=== PATIENT | female | born 2000 | race Caucasian/White ===

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

== ENCOUNTER 2021-02-03 12:11 | Outpatient (CLI) | payer BC, OTHER, SELFPAY | END 2021-02-03 12:12 | disposition home or self-care (01) | LOC: CHSLAB 12:14 | PROVIDERS: PCP Internal Medicine; Visit Provider Internal Medicine | DX: J02.9 Acute pharyngitis, unspecified (principal) | CPT/HCPCS: 87081; 87880 ==

== ENCOUNTER 2021-05-15 15:10 | Outpatient (CLI) | payer BC, OTHER, SELFPAY ==
[2021-05-15 16:23] LABS: Influenza A QL RT-PCR Negative (Negative); Influenza B QL RT-PCR Negative (Negative); SARS-CoV-2 RNA PCR Positive (Negative)
== END 2021-05-15 15:11 | disposition home or self-care (01) ==
LOC: CHSLAB 15:12
PROVIDERS: PCP Internal Medicine; Visit Provider Internal Medicine
DX: U07.1 COVID-19 (principal); J06.9 Acute upper respiratory infection, unspecified
CPT/HCPCS: 87081; 87502; 87880; C9803; U0003; U0005

== ENCOUNTER 2021-05-17 19:56 | Emergency (ER) | payer BC, OTHER, SELFPAY ==
--- NOTE | ~2021-05-17 | XR_ITS ---
EXAMINATION: XR chest 1V portable EXAM DATE: 05/17/2021 22:28 INDICATION: Midsternal CP,COVID+ 05/14,SOA,HX Asthma TECHNIQUE: Portable AP frontal chest x-ray was obtained. Comparison is made to prior examination from 08/23/2020. FINDINGS: The lungs are clear. There are no pleural effusions. The cardiomediastinal silhouette is within normal limits. There is no pneumothorax suspected. The bones and soft tissues are unremarkab le. IMPRESSION: No acute cardiopulmonary findings. Reviewed, dictated and finalized at location A. LOADER
[2021-05-17 20:00] VITALS: BP 131/88; PULSE 79; RESP 17; TEMP 36.7; O2SAT 100
[2021-05-17] MEDS: KETOROLAC 30 MG/ML VIAL (*BKC) IV PUSH (22:18)
[2021-05-17 22:37] LABS: Basophils Absolute Auto 0.1 K/mm3 (0.0-0.1); Basophils Percent Auto 0.9 % (0.2-1.2); Eosinophils Absolute Auto 0.2 K/mm3 (0-0.3); Eosinophils Percent Auto 1.9 % (0-4.4); Hematocrit 41.7 % (37.0-47.0); Hemoglobin 13.7 g/dL (12.0-15.0); Immature Granulocyte Absolute 0.02 K/mm3 (0.00-0.031); Immature Granulocyte Percent A 0.3 % (0-0.5); Lymphocytes Absolute Auto 2.71 K/mm3 (0.9-3.2); Lymphocytes Percent Auto 35.1 % (18.3-44.2); Mean Corpuscular HGB Conc 32.9 g/dl (32-36); Mean Corpuscular Hemoglobin 27.6 pg (26-34); Mean Corpuscular Volume 84.1 fl (80-100); Mean Platelet Volume 10.6 fl (7.4-10.4); Monocytes Absolute Auto 0.7 K/mm3 (0.1-0.6); Monocytes Percent Auto 9.1 % (2.6-8.5); Neutrophils Absolute Auto 4.1 K/mm3 (1.3-6.7); Neutrophils Percent Auto 52.7 % (45.5-73.1); Platelet Count Result 396 k/mm3 (150-375); Red Blood Count 4.96 M/mm3 (4.2-5.4); Red Cell Distribution Width 12.4 % (11.5-14.5); White Blood Count 7.7 K/mm3 (4.5-10.0)
[2021-05-17 22:56] LABS: Alanine Aminotransferase 13 U/L (4-35); Albumin Level 4.4 g/dL (3.7-5.6); Alkaline Phosphatase 94 U/L (45-116); Anion Gap 8 mmol/L (8-16); Aspartate Amino Transferase 28 U/L (14-36); Bilirubin,Total 0.3 mg/dL (0.2-1.3); Blood Urea Nitrogen 7 mg/dL (8-21); Calcium 8.9 mg/dL (8.9-10.7); Carbon Dioxide 29 mmol/L (22-30); Chloride 100 mmol/L (98-107); Estimated CRCL calculation 161 ml/min; Estimated Glomerular Filt Rate > 60; Glucose 91 mg/dL (65-110); Potassium 4.3 mmol/L (3.4-5.0); Sodium 137 mmol/L (134-143)
--- NOTE | 2021-05-17 23:05 | ED.GENADULT ---
HPI - General Adult General Chief complaint: Upper Respiratory Infection Stated complaint: COVID+ and short of breath 05/15/21 Time Seen by Provider: 05/17/21 21:15 History of Present Illness HPI narrative: Patient is a 20-year-old female who presents ER with chest pain and shortness of breath. Patient diagnosed with COVID-19 on 05/15 but was symptomatic 1 day before. She reports around 7:30 PM she began having central chest discomfort. She cannot describe the character of it but just reports she feels like she is not getting a full breath. Worse with attempting deep breaths. The pain is not constant. She is not dyspneic with exertion. No fevers or chills or sweats. She has had some minor cough. She is unvaccinated. She has history of protein C deficiency. No previous history of blood clot. No recent long distance travel, lower extremity swelling, or surgery. Related Data Home Medications Medication Instructions Recorded Confirmed atenolol 50 mg tablet 50 mg PO DAILY 04/30/21 04/30/21 Allergies Allergy/AdvReac Type Severity Reaction Status Date / Time Penicillins Allergy Unknown FACIAL Verified 05/17/21 20:03 SWELLING Review of Systems Review of Systems: All systems reviewed & are unremarkable except as noted in HPI and below Constitutional: Constitutional: Denies chills, Denies fever(s) and Denies weakness ENT: Reports nasal congestion and Reports sore throat Cardiovascular: Cardiovascular: Reports chest pain, Denies rapid heart rate and Denies radiating jaw, neck or arm pain Respiratory: Respiratory: Reports cough, Reports dyspnea and Denies wheezing Gastrointestinal: Gastrointestinal: Denies abdominal pain, Denies nausea and Denies vomiting Neurologic: Denies syncope, Denies focal weakness and Denies numbness PMFSH Past Medical History Medical History (Updated 05/17/21 @ 23:49 by Johnny Davis MD) History of sinus tachycardia Protein C deficiency Surgical History Surgical History (Updated 05/17/21 @ 23:07 by Johnny Davis MD) No pertinent past surgical history Social History Social History (Updated 05/17/21 @ 23:08 by Johnny Davis MD) Smoking status: Never smoker Exam Narrative: GENERAL: Well-appearing, well-nourished, and in no acute distress. HEAD: Normocephalic, atraumatic. ENT: Mucous membranes moist. CHEST: Clear to auscultation. No respiratory distress. HEART: Regular rate and rhythm. No murmur heard. Normal peripheral pulses. ABDOMEN: Soft, nontender, nondistended. EXTREMITIES: Normal range of motion. No edema. SKIN: Warm, dry, no rash. NEURO: Alert and oriented x3. PSYCH: Normal mood and affect. Course Course Emergency Course: Labs unremarkable. Chest x-ray negative. Improved with Toradol. Discharge home. Vital Signs Vital signs: Vital Signs Temperature 98.0 F 05/17/21 20:00 Pulse Rate 79 05/17/21 20:00 Respiratory Rate 17 05/17/21 20:00 Blood Pressure 131/88 05/17/21 20:00 Pulse Oximetry 100 05/17/21 20:00 Temperature 98.0 F 05/17/21 20:00 Pulse Rate 79 05/17/21 20:00 Respiratory Rate 17 05/17/21 20:00 Blood Pressure 131/88 05/17/21 20:00 Pulse Oximetry 100 05/17/21 20:00 Medical Decision Making Vital Signs Vital Signs: Vital Signs Temperature 98.0 F 05/17/21 20:00 Pulse Rate 79 05/17/21 20:00 Respiratory Rate 17 05/17/21 20:00 Blood Pressure 131/88 05/17/21 20:00 Pulse Oximetry 100 05/17/21 20:00 Temperature 98.0 F 05/17/21 20:00 Pulse Rate 79 05/17/21 20:00 Respiratory Rate 17 05/17/21 20:00 Blood Pressure 131/88 05/17/21 20:00 Pulse Oximetry 100 05/17/21 20:00 Lab Data Result diagrams: 05/17/21 22:18 05/17/21 22:18 Labs: Lab Results 05/17/21 05/17/21 05/17/21 Range/Units 22:18 22:18 22:18 WBC 7.7 (4.5-10.0) K/mm3 RBC 4.96 (4.2-5.4) M/mm3 Hgb 13.7 (12.0-15.0) g/dL Hct 41.7 (37.0-47.0) %
[2021-05-17 23:09] LABS: D Dimer < 0.22 ug/mL (<0.48)
== END 2021-05-18 04:12 | disposition home or self-care (01) ==
PROVIDERS: Emergency Provider Emergency Medicine; PCP Internal Medicine
DX: R09.1 Pleurisy (principal); U07.1 COVID-19
CPT/HCPCS: 36415; 71045; 80053; 85025; 85380; 96374; 99284; J1885

== ENCOUNTER 2021-06-10 13:03 | Outpatient (CLI) | payer BC, OTHER, SELFPAY ==
--- NOTE | 2021-06-10 13:15 | ECG_ITS ---
Measurements Intervals [place] Rate: 70 P: 38 NM: 183 QRS: 22 QRSD: 93 T: 30 QT: 375 QTc: 407 Interpretive Statements SINUS RHYTHM WITH SINUS ARRHYTHMIA LOW QRS VOLTAGE IN PRECORDIAL LEADS BORDERLINE R WAVE PROGRESSION, ANTERIOR LEADS MINIMAL Q WAVES- INFERIOR LEADS BORDERLINE ECG Electronically Signed On 06-10-2021 13:21:45 [employer] [place] by Hero Jean D.O.
== END 2021-06-10 13:04 | disposition home or self-care (01) ==
LOC: ANHSURGERY 13:06
PROVIDERS: PCP Internal Medicine; Visit Provider Otolaryngology
DX: R00.0 Tachycardia, unspecified (principal); R94.31 Abnormal electrocardiogram [ECG] [EKG]
CPT/HCPCS: 93005

== ENCOUNTER 2021-06-13 00:25 | Day surgery (SDC) | payer BC, OTHER, SELFPAY ==
[2021-06-06 15:02] VITALS: BMI 40.7
--- NOTE | 2021-06-06 15:14 | PC.NURSE ---
Report to the Outpatient Waiting Room, entrance under the green pavilion located off [facility], at time 8:30 on date 06/13/21. OR Time: 10:30. - You will be asked a series of questions to screen for COVID 19 for your protection. - A mask is required within the hospital. - No visitors are allowed at this time. Patient visitors will be guided where to wait when not with patient. Preoperative COVID Testing Requirements: COVID + 05/15/21 No COVID Test needed if: (proof is required; if not received patient will have Rapid Test prior to entry) - Patient has received COVID Vaccine at least 14 days prior to procedure date or - Patient has positive COVID test result within last 90 days of surgery date. COVID Test needed if above criteria is not met Patients may have clear liquids (water, carbonated beverages, clear teas, apple juice) until 3 hours prior to surgery (7:30) with a maximum of 20 ounces. - No food from midnight until time of surgery Take the following medications with a SIP of water the morning of surgery: ATENOLOL Medications to discontinue per physician: VITAMINS/SUPPLEMENTS Date to take last dose: 06/09/21 Please no make-up, nail korean, hairspray, perfume, deodorant, or body powder the day of surgery. No jewelry (including any body piercings) or valuables the day of surgery, leave them at home. Please take a shower or bath the night before, or the morning of, surgery with an antibacterial soap. Wear comfortable, loose fitting clothing. - Jewelry must be removed prior to entering the operating room. Rings and piercings that are not removed may be cut off. - The hospital will not accept responsibility for valuables. - Please leave all valuables, including medications, at home the day of surgery. If you are going home after surgery, a licensed waste collection driver must drive you home. - NO public transportation without another adult. - We recommend that an adult stay with you for 24 hours following discharge. - We also recommend that you do not drive, make important decision, drink alcoholic beverages, or take any drugs that were not prescribed by your health care provider for at least 24 hours after your discharge time. Follow any additional instructions given to you from your surgeon. Telephone instructions given to PEARL MUNSON and asked if any additional questions and then verbalized understanding. Patient advised to call surgeon office or pre surgery nurse liaison [phone] if any additional questions.
--- NOTE | 2021-06-12 08:02 | PM.IMHP ---
H&P: HPI History of Present Illness Date/Time: 06/12/21 08:02 Chief Complaint: tonsillar asymmetry chronic tonsillitis recurrent tonsillitis dysphagia tonsillar hypertrophy Narrative: patient presents for planned surgical procedure no change in history no change in symptoms. Patient does have protein C deficiency Review of Systems Constitutional: Constitutional: Denies fatigue, Denies fever(s) and Denies lethargy Eyes: Eyes: Denies blurry vision and Denies change in vision ENT: Reports as per HPI Cardiovascular: Cardiovascular: Denies chest pain Respiratory: Respiratory: Denies cough Endocrine: Endocrine: Denies fatigue Hematologic/Lymphatic: Hematologic/Lymphatic: Denies easy bleeding, Denies easy bruising and Denies lymphadenopathy Allergic/Immunologic: Allergic/Immunologic: Denies seasonal rhinorrhea [facility] Past Medical History Medical History (Updated 05/19/21 @ 00:00 by Cheo Vallecillo) History of sinus tachycardia Protein C deficiency Surgical History Surgical History (Updated 05/17/21 @ 23:07 by Johnny Davis MD) No pertinent past surgical history Social History Social History (Updated 05/17/21 @ 23:08 by Johnny Davis MD) Smoking status: Never smoker Alcohol intake: never Substance use: never Substance use type: does not use Spiritual care concerns: No Meds Home Medications and Allergies Home Medications Medication Instructions Recorded Confirmed Type atenolol 50 mg tablet 50 mg PO DAILY 04/30/21 06/06/21 History multivitamin 1 tablet PO DAILY 06/06/21 06/06/21 History Allergies Allergy/AdvReac Type Severity Reaction Status Date / Time Penicillins Allergy Unknown FACIAL Verified 06/06/21 15:00 SWELLING Exam Const: General: cooperative, healthy appearing, comfortable, well developed and alert HENMT: Head: normal to inspection, normocephalic and atraumatic Ears: hearing grossly normal bilaterally, external ears normal, TM's normal bilaterally and EAC's normal General nose exam: Normal external nose present, Normal nares present, No nasal polyps present, Normal nasal mucous membranes and turbinates present and Normal septum present Face and sinus: normal facial exam Mouth: Yes Normal oral and palatal mucosa present, Yes lip normal, Yes tongue normal, Yes oropharynx normal and Yes moist mucous membranes Teeth and gingiva: dentition normal and gingiva normal Throat: posterior oropharynx normal, tonisls abnormal ( Large asymmetric right greater than left) and uvula midline Eyes: General: appearance normal, both eyes and all related structures Periorbital: periorbital findings normal Eyelids: eyelids normal Conjunctivae: conjunctivae normal Sclera: sclerae normal Neck: Neck: normal visual inspection, full ROM and no lymphadenopathy Thyroid: thyroid normal Lymphatic: no lymphadenopathy noted Resp: Effort & Inspection: normal respiratory effort and able to speak in complete sentences Cardio: Jugular venous distension: no JVD Neuro: Cranial nerves: Yes CN's II-XII intact bilaterally Assessment and Plan Assessment and plan (1) Dysphagia: Code(s): R13.10 - Dysphagia, unspecified Status: Acute Assessment and Plan: plan is for the operating room tonsillectomy. Risks were discussed including bleeding infection pain postoperative bleeding 5% need for further procedures tongue numbness tooth numbness numbness and pain of any structure above the clavicles any complications that which may be caused by Anesthesia and induction and endotracheal tube to assess [place]. Trismus coughing ear pain difficulty swallowing. Need for postoperative pain medication narcotics. Patient voiced understanding of these risks and agreed. (2) Chronic tonsillitis: Code(s): J35.01 - Chronic tonsillitis Status: Acute (3) Recurrent tonsillitis: Code(s): J03.91 - Acute recurrent tonsillitis, unspecified Status: Acute (4) To
[2021-06-13] VITALS (9 sets, daily range): BP systolic 97–125; BP diastolic 52–72; PULSE 49–94; RESP 10–21; TEMP 36.2–36.6; O2SAT 96–100
--- NOTE | 2021-06-13 07:12 | WPDHPUPDATE1 ---
History and Physical Update Update Date/Time: 06/13/21 07:12 History and Physical has been reviewed, including an updated exam of the patient. There are NO changes in the patient's condition. Risks, benefits, and alternatives have been discussed and questions answered. Patient agrees to proceed with procedure.
--- NOTE | 2021-06-13 07:13 | WPDHPUPDATE1 ---
History and Physical Update Update Date/Time: 06/13/21 07:13 History and Physical has been reviewed, including an updated exam of the patient. There are NO changes in the patient's condition. Risks, benefits, and alternatives have been discussed and questions answered. Patient agrees to proceed with procedure.
[2021-06-13] MEDS: LACTATED RINGERS 1,000 ML 30 ML IV CONT ×2 (08:50→11:02)
[2021-06-13] MEDS: ACETAMINOPHEN 500 MG TABLET 1000 MG PO (08:57)
--- NOTE | 2021-06-13 08:57 | P.PNAN_ITS ---
Anes - Initial Pre Proc Eval Procedure: Operation Date: 06/13/21 10:30 Proposed Procedures p Tonsillectomy - Leo Starr MD Date/Time: 06/13/21 08:57 Surgeon: Leo Starr MD Pre Op Diagnosis: chronic tonsilitis Patient Data Age: 20 Gender: F Height: 1.65 m Weight: 111.5 kg Last Vital Signs Temp 36.6 C 06/13/21 08:42 Pulse 82 06/13/21 08:42 Resp 16 06/13/21 08:42 BP 125/67 06/13/21 08:42 Pulse Ox 99 06/13/21 08:42 Allergies Allergy/AdvReac Type Severity Reaction Status Date / Time Penicillins Allergy Severe FACIAL Verified 06/13/21 08:41 SWELLING Home Medications Medication Instructions Recorded Confirmed Type atenolol 50 mg tablet 50 mg PO DAILY 04/30/21 06/13/21 History multivitamin 1 tablet PO DAILY 06/06/21 06/13/21 History Patient hx anesthesia problems: none Family hx anesthesia problems: none Results Review: All pre-operative results and documents have been reviewed as part of the pre-operative evaluation. [facility] Past Medical History Medical History (Updated 06/13/21 @ 08:57 by Roberth Quintanilla MD) History of sinus tachycardia Morbid obesity Protein C deficiency Surgical History Surgical History No pertinent past surgical history Social History Social History Smoking status: Never smoker Alcohol intake: never Substance use: never Substance use type: does not use Living arrangements: with family Spiritual care concerns: No Anes - Eval Final PreProcedure Day of Procedure 06/13/21 08:57 Patient weight: morbidly obese Heart: regular rate and rhythm Lungs: clear to auscultation Airway: Mallampati scale class II Neurological: alert and oriented Last oral intake: >/= 8 hours ASA classification: III Emergent: no Anesthetic plan: proceed Anesthesia type and monitoring: general ETT and standard monitoring Results Review: All pre-operative results and documents have been reviewed as part of the pre-operative evaluation. Informed Consent: The patient's anesthetic plan and its attendant risks and benefits were discussed with the patient/family/POA. Questions were solicited and answers provided to the satisfaction of the patient/family/POA.
[2021-06-13] MEDS: fentaNYL CITRATE INJ (*CRX) 100 MCG/2 ML VIAL 25 MCG IV PUSH ×4 (10:38→10:48)
--- NOTE | 2021-06-13 10:46 | W.PM.PROC2 ---
Procedure Note - Detailed Date of Procedure 06/13/21 Pre-op Diagnosis chronic tonsilitis, recurrent tonsillitis, tonsillar hypertrophy Post-op Diagnosis same Procedure Performed Tonsillectomy Surgeon Leo Starr MD Anesthesia general Indications See above Findings arge 3 to 4+ tonsils right greater than left sent separately. Description of Procedure Patient identified consent verified. Patient brought operating room. Time-out performed. General anesthesia induced. Patient prepped and draped bed rotated. Second time-out performed. McIvor mouth gag inserted to reveal tonsils which were 3 to 4+ right greater than left. Dissected in the extracapsular plane using Bovie electrocautery at a setting of 10. Hemostasis achieved using intermittent application of suction Bovie electrocautery at a setting of 12 in 15. The McIvor mouth gag was then lowered allowed to sit for 30 seconds and reopened to reveal excellent hemostasis. There were no complications. Total blood loss approximately 5 cc. Care the patient turned over to Anesthesiology. McIvor mouth gag was removed. This was a bilateral procedure. There were no complications. Estimated Blood Loss 5 Drains No Packing No Pathology yes Complications No immediate complications Condition stable Disposition PACU
[2021-06-13] MEDS: ONDANSETRON INJ 4 MG/2 ML VIAL IV PUSH (11:06)
[2021-06-13] MEDS: diphenhydrAMINE HCl INJ 50 MG/ML VIAL 25 MG IV PUSH (12:01)
[2021-06-13] MEDS: SCOPOLAMINE 1.5 MG PATCH TRANSDERM (12:14)
[2021-06-13] MEDS: oxyCODONE HCL (*CRX) 5 MG TAB IR PO (12:34)
== END 2021-06-13 13:10 | disposition home or self-care (01) ==
PROVIDERS: PCP Internal Medicine; Visit Provider Otolaryngology
PROC: (CPT 42826; principal; 2021-06-13 10:30)
DX: J35.01 Chronic tonsillitis (principal); R13.10 Dysphagia, unspecified; J03.91 Acute recurrent tonsillitis, unspecified; J35.8 Other chronic diseases of tonsils and adenoids; D68.59 Other primary thrombophilia
CPT/HCPCS: 42826; 88304; A9270; J0330; J1100; J1200; J2250; J2405; J2704; J3010; J7120

== ENCOUNTER 2021-08-21 15:53 | Outpatient (CLI) | payer BC, OTHER, SELFPAY ==
[2021-08-21 17:29] LABS: Influenza A QL RT-PCR Positive (Negative); Influenza B QL RT-PCR Negative (Negative); SARS-CoV-2 RNA PCR Negative (Negative)
== END 2021-08-21 15:54 | disposition home or self-care (01) ==
LOC: CHSLAB 15:55
PROVIDERS: PCP Family Medicine; Visit Provider Nurse Practitioner Family
DX: J06.9 Acute upper respiratory infection, unspecified (principal); R50.9 Fever, unspecified; Z20.822 Contact with and (suspected) exposure to COVID-19
CPT/HCPCS: 87502; C9803; U0003; U0005

== ENCOUNTER 2021-08-22 15:32 | Emergency (ER) | payer BC, OTHER, SELFPAY ==
--- NOTE | ~2021-08-22 | CT_ITS ---
EXAMINATION: CTA chest PE protocol DATE: 08/22/2021 17:39 INDICATION: Shortness of breath, tachycardia. Positive d-dimer. TECHNIQUE: Computed tomography angiography (CTA) of the chest was performed with 100 mL Omnipaque-350 intravenous contrast timed to evaluate the pulmonary arteries. Coronal maximum intensity projection 3D-reconstructions were created by the technologist. Automated exposure control and iterative reconst ruction technique were employed. Exam dose: 1018.79 mGy-cm total exam DLP. COMPARISON: 08/22/2021 portable AP chest FINDINGS: There is diagnostic contrast enhancement of the pulmonary arteries and no evidence of pulmo nary embolism. Normal heart size. No pericardial or pleural effusion. No thoracic aortic aneurysm or dissection. There is some residual thymic tissue in the anterior mediastinum. There there some nonspecific mild p revascular mediastinal lymph nodes. And minimal bilateral hilar lymph node prominence. There is nonspecific mild mesenteric lymph node prominence as well. 8 mm right upper lobe nodule and 5 mm left lower lobe pulmonary nodule. No pulmonary infiltrate or consolidation or pneumothorax. Spleen measures within upper limits of normal, at 12 cm approximate maximal vertical dimension. Included skeletal structures are unremarkable. IMPRESSION: No evidence of pulmonary embolism 8 mm right upper lobe nodule and 5 mm left lower lobe nodule Nonspecific mild mediastinal and bilateral hilar and mesenteric lymph node prominence Reviewed, dictated and finalized at Location A. Reviewed, dictated and finalized at location A. IMPRESSION: No evidence of pulmonary embolism 8 mm right upper lobe nodule and 5 mm left lower lobe nodule Nonspecific mild mediastinal and bilateral hilar and mesenteric lymph node prom inence
--- NOTE | ~2021-08-22 | XR_ITS ---
EXAMINATION: XR chest 1V portable EXAM DATE: 08/22/2021 16:11 INDICATION: Generalized chest pain, cough today. TECHNIQUE: Portable AP frontal chest x-ray was obtained. Comparison is made to prior examination from 05/17/2021. FINDINGS: The lungs are clear. There are no pleural effusions. The cardiomediastinal silhouette is within normal limits. There is no pneumothorax suspected. The bones and soft tissues are unremarkab le. IMPRESSION: No acute cardiopulmonary findings. Reviewed, dictated and finalized at location A.
[2021-08-22 15:40] VITALS: BP 141/77; PULSE 109; RESP 18; TEMP 37.5; O2SAT 98
--- NOTE | 2021-08-22 15:53 | ECG_ITS ---
Measurements Intervals [place] Rate: 106 P: 24 AL: 162 QRS: -12 QRSD: 85 T: 19 QT: 316 QTc: 421 Interpretive Statements SINUS TACHYCARDIA LOW QRS VOLTAGE IN PRECORDIAL LEADS [QRS DEFLECTION < 1.0 mV IN CHEST LEADS] POOR R WAEPROGRESSION; CAN NOT RULE OUT OLD ANTERIOR MYOCARDIAL INFARCTION ABNORMAL RHYTHM ECG COMPARED TO ECG 06/10/2021 13:23:43 SINUS TACHYCARDIA NOW PRESENT Electronically Signed On 08-23-2021 6:50:11 CDT by Bridgett Núñez M.D.
--- NOTE | 2021-08-22 15:57 | ED.GENADULT ---
HPI - General Adult General Chief complaint: Upper Respiratory Infection Stated complaint: vomiting, cough,trouble catching breath Source: patient Mode of arrival: ambulatory Limitations: no limitations History of Present Illness HPI narrative: Karla is a 20F with a PMH of tachycardia and protein C deficiency that presented to the ED with with flu symptoms. She started to have a cough a couple days ago that led to fevers up to 102, cough, congestion, SOB, chest pain, body aches, nausea and 10 episodes of non-bloody vomiting. Related Data Home Medications Medication Instructions Recorded Confirmed atenolol 50 mg tablet 50 mg PO DAILY 04/30/21 08/22/21 multivitamin 1 tablet PO DAILY 06/06/21 08/22/21 oseltamivir 75 mg PO DAILY 08/22/21 08/22/21 Allergies Allergy/AdvReac Type Severity Reaction Status Date / Time Penicillins Allergy Severe FACIAL Verified 08/22/21 15:49 SWELLING Review of Systems Constitutional: Constitutional: Reports chills, Reports fatigue and Reports fever(s) Eyes: Eyes: Reports no additional eye complaints ENT: Reports as per HPI Cardiovascular: Cardiovascular: Reports chest pain, Reports rapid heart rate and Denies radiating jaw, neck or arm pain Respiratory: Respiratory: Reports as per HPI Gastrointestinal: Gastrointestinal: Reports as per HPI Genitourinary: Genitourinary: Reports no additional female genitourinary complaints Musculoskeletal: Musculoskeletal: Reports no additional musculoskeletal complaints Integumentary/Breasts: Skin/Breast: Reports system reviewed and no additional complaints, except as docu Neurologic: Reports system reviewed and no additional complaints, except as documented Psychiatric: Psychiatric: Reports no additional psychiatric complaints Endocrine: Endocrine: Reports no additional endocrine complaints Hematologic/Lymphatic: Hematologic/Lymphatic: Reports no additional hematologic/lymphatic complaints Allergic/Immunologic: Allergic/Immunologic: Reports no additional allergic/immunologic complaints [facility] Past Medical History Medical History History of sinus tachycardia Morbid obesity Protein C deficiency Surgical History Surgical History No pertinent past surgical history Social History Social History Smoking status: Never smoker Alcohol intake: never Substance use: never Substance use type: does not use Spiritual care concerns: No Exam Const: General: no acute distress and alert; No confusion Orientation/consciousness: patient oriented x3 Limitations: No altered mental status HENMT: Head: normal to inspection Other: normocephalic, atraumatic Eyes: Conjunctivae: conjunctivae normal Pupils: Equal, round and reactive pupils present Neck: Neck: normal visual inspection Chest: Chest palpation & inspection: normal inspection of the chest Resp: Effort & Inspection: normal respiratory effort, not labored and tachypneic Auscultation: clear to auscultation bilaterally Cardio: Rate: tachycardic Rhythm: regular rhythm GI: Inspection: non-distended GI Palp: Yes Soft to palpation, No Tenderness to palpation present (GI) and No Guarding due to palpation present (GI) : General: Yes no CVA tenderness Skin: General skin exam: normal color Rashes: no rashes Neuro: General: patient oriented x3 Extrem: General: normal to inspection Psych: Mental Status: mental status grossly normal Course Course Emergency Course: Ordered EKG, CXR, labs, fluids, toradol and zofran EKG showed sinus tachycardia with a rate of 106, possible LAD but no ST elevation/depression or ectopy Labs largely unremarkable. EXAMINATION: CTA chest PE protocol DATE: 08/22/2021 17:39 INDICATION: Shortness of breath, tachycardia. Positive d-dimer. TECHNIQUE: Computed tomography a
[2021-08-22] MEDS: SODIUM CHLORIDE 0.9% IV 1,000 ML 999 ML IV CONT (16:09)
[2021-08-22] MEDS: ONDANSETRON INJ 4 MG/2 ML VIAL IV PUSH (16:11)
[2021-08-22] MEDS: KETOROLAC 30 MG/ML VIAL (*BKC) IM (16:11)
[2021-08-22 16:12] LABS: Basophils Absolute Auto 0.04 K/mm3 (0.00-0.10); Basophils Percent Auto 0.8 % (0.0-1.0); Eosinophils Absolute Auto 0.02 K/mm3 (0.02-0.50); Eosinophils Percent Auto 0.4 % (1.0-6.0); Hematocrit 39.9 % (35.0-49.0); Hemoglobin 12.7 g/dL (12.0-15.0); Immature Granulocyte Absolute 0.03 K/mm3 (0.00-0.00); Immature Granulocyte Percent A 0.6 % (0.0-0.0); Lymphocytes Absolute Auto 0.55 K/mm3 (1.10-4.50); Lymphocytes Percent Auto 10.6 % (18.0-42.0); Mean Corpuscular HGB Conc 31.8 g/dL (32.0-36.0); Mean Corpuscular Hemoglobin 27.1 pg (27.0-31.0); Mean Corpuscular Volume 85.3 fL (78.0-102.0); Mean Platelet Volume 10.4 fl (9.2-11.8); Monocytes Absolute Auto 0.54 K/mm3 (0.10-0.90); Monocytes Percent Auto 10.4 % (2.0-11.0); Neutrophils Percent Auto 77.2 % (50.0-70.0); Platelet Count Result 235 K/mm3 (150-420); Red Blood Count 4.68 M/mm3 (4.20-5.40); Red Cell Distribution Width 12.4 % (11.6-14.4); White Blood Count 5.2 K/mm3 (4.8-10.8)
[2021-08-22 16:14] LABS: Add Urine Microscopic? NO; Appearance Urine Clear (Clear); Bilirubin Urine Negative (Negative); Blood Urine Negative (Negative); Color Urine Light Yellow (Yellow); Glucose Urine UA Negative (Negative); Ketones Urine Negative (Negative); Leukocyte Esterase Ur Negative (Negative); Nitrate Urine Negative (Negative); Protein Urine Negative (Negative); Specific Grav Ur <= 1.005 (1.010-1.020); Urobilinogen Urine 0.2 mg/dL (0.2-1.0); pH Urine 5.5 (5.0-8.0)
[2021-08-22 16:20] LABS: Pregnancy On Board Control Positive; Urine Pregnancy Test Negative
[2021-08-22 16:27] LABS: D Dimer 0.98 mg/L (0.19-0.50)
[2021-08-22 16:30] LABS: Lactic Acid Reflex 0.8 mmol/L (0.4-2.0)
[2021-08-22 16:33] LABS: Alanine Aminotransferase 18 U/L (14-59); Albumin Level 3.6 g/dL (3.4-5.0); Alkaline Phosphatase 97 U/L (50-130); Anion Gap 8 mmol/L (8-16); Aspartate Amino Transferase 14 U/L (15-37); Bilirubin,Total 0.2 mg/dL (0.00-1.00); Blood Urea Nitrogen 4 mg/dL (7-18); Calcium 8.5 mg/dL (8.5-10.1); Carbon Dioxide 27 mmol/L (21-32); Chloride 100 mmol/L (98-108); Estimated CRCL calculation 137 ml/min; Estimated Glomerular Filt Rate > 60; Glucose 92 mg/dL (70-99); NT Pro B Type Natriuretic Pept 142 pg/mL (0-125); Osmolality Calculated 276 mOsm/kg (285-295); Potassium 3.9 mmol/L (3.5-5.1); Sodium 135 mmol/L (136-145); Total Protein 7.3 g/dL (6.4-8.2); Troponin I 5.6 ng/L (0.00-60.4)
[2021-08-22 17:02] VITALS: BP 140/78; PULSE 88; RESP 16; TEMP 36.9; O2SAT 100
[2021-08-22 18:04] VITALS: BP 134/72; PULSE 101; RESP 16; TEMP 37.1; O2SAT 96
[2021-08-22 18:21] VITALS: BP 129/70; PULSE 102; RESP 18; O2SAT 99
== END 2021-08-22 18:23 | disposition home or self-care (01) ==
PROVIDERS: Emergency Provider Family Medicine; PCP Internal Medicine
DX: J11.1 Influenza due to unidentified influenza virus with other respiratory manifestations (principal); R06.02 Shortness of breath
CPT/HCPCS: 36415; 71045; 71275; 80053; 81003; 81025; 83605; 83880; 84484; 85025; 85380; 93005; 96361; 96372; 96374; 99284; J1885; J2405; J7030; Q9967

== ENCOUNTER 2021-10-31 10:21 | Outpatient (CLI) | payer BC, OTHER, SELFPAY ==
[2021-10-31 11:16] LABS: Add Urine Microscopic? YES; Appearance Urine Clear (Clear); Basophils Absolute Auto 0.07 K/mm3 (0.00-0.10); Basophils Percent Auto 0.9 % (0.0-1.0); Bilirubin Urine Negative (Negative); Blood Urine Negative (Negative); Color Urine Yellow (Yellow); Eosinophils Absolute Auto 0.16 K/mm3 (0.02-0.50); Glucose Urine UA Negative (Negative); Hematocrit 38.2 % (35.0-49.0); Hemoglobin 12.1 g/dL (12.0-15.0); Immature Granulocyte Absolute 0.04 K/mm3 (0.00-0.00); Immature Granulocyte Percent A 0.5 % (0.0-0.0); Ketones Urine Negative (Negative); Leukocyte Esterase Ur Negative LEU/UL (Negative); Lymphocytes Absolute Auto 2.59 K/mm3 (1.10-4.50); Lymphocytes Percent Auto 31.8 % (18.0-42.0); Mean Corpuscular HGB Conc 31.7 g/dL (32.0-36.0); Mean Corpuscular Hemoglobin 26.2 pg (27.0-31.0); Mean Corpuscular Volume 82.7 fL (78.0-102.0); Mean Platelet Volume 10.7 fl (9.2-11.8); Monocytes Absolute Auto 0.64 K/mm3 (0.10-0.90); Monocytes Percent Auto 7.9 % (2.0-11.0); Neutrophils Absolute Auto 4.6 K/mm3 (1.7-7.2); Neutrophils Percent Auto 56.9 % (50.0-70.0); Nitrate Urine Negative (Negative); Platelet Count Result 338 K/mm3 (150-420); Protein Urine Trace (Negative); Red Blood Count 4.62 M/mm3 (4.20-5.40); Red Cell Distribution Width 12.9 % (11.6-14.4); Specific Grav Ur >= 1.030 (1.010-1.020); Urobilinogen Urine 0.2 mg/dL (0.2-1.0); White Blood Count 8.1 K/mm3 (4.8-10.8)
[2021-10-31 11:30] LABS: Alanine Aminotransferase 15 U/L (14-59); Albumin Level 3.6 g/dL (3.4-5.0); Alkaline Phosphatase 100 U/L (50-130); Anion Gap 6 mmol/L (8-16); Aspartate Amino Transferase < 10 U/L (15-37); Bilirubin,Total 0.3 mg/dL (0.00-1.00); Blood Urea Nitrogen 10 mg/dL (7-18); Calcium 8.3 mg/dL (8.5-10.1); Carbon Dioxide 26 mmol/L (21-32); Chloride 106 mmol/L (98-108); Cholesterol 145 mg/dL (0-200); Estimated Glomerular Filt Rate > 60; Free T4 Free Thyroxine 1.11 ng/dL (0.76-1.46); Glucose 98 mg/dL (70-99); HDL Direct 40 mg/dL (40-60); LDL Cholesterol Calculated 90 mg/dL (<130); Osmolality Calculated 285 mOsm/kg (285-295); Potassium 3.8 mmol/L (3.5-5.1); Sodium 138 mmol/L (136-145); Thyroid Stimulating Hormone 2.76 uIU/mL (0.52-4.13); Triglycerides 73 mg/dL (0-150)
[2021-10-31 11:34] LABS: Amorphous Sediment Urine Moderate; Bacteria Urine None seen /hpf; RBC Urine 0-2 /hpf (0-2); Squamous Epithelial Cell Urine Few /hpf (Few); WBC Urine 0-3 /hpf (0-3)
--- NOTE | 2021-10-31 11:35 | ECG_ITS ---
Measurements Intervals [place] Rate: 52 P: 18 [place]: 169 QRS: 10 QRSD: 93 T: 23 QT: 425 QTc: 398 Interpretive Statements SINUS BRADYCARDIA LOW QRS VOLTAGE IN PRECORDIAL LEADS [QRS DEFLECTION < 1.0 mV IN CHEST LEADS] COMPARED TO ECG 08/22/2021 16:19:46 HEART RATE IS REDUCED THIS TRACING IS LESS SUGGESTIVE OF PREVIOUS INFERIOR MA Electronically Signed On 10-31-2021 14:52:41 CDT by Rickey Baig M.D.
[2021-11-03 14:46] LABS: Homocysteine 8.1 umol/L (<10.4)
[2021-11-03 19:17] LABS: Factor VIII Activity 108 % normal (50-180)
[2021-11-03 21:38] LABS: APC Ratio 4.7 ratio (>=2.1)
[2021-11-04 12:50] LABS: Protein S Antigen, Free 95 % normal (50-147); Protein S Antigen, Total 99 % normal (70-140)
[2021-11-04 22:21] LABS: Antithrombin III Activity 101 % normal (80-135)
[2021-11-05 14:04] LABS: Vitamin D 25 Hydroxy 33 ng/mL (30-100)
[2021-11-05 22:17] LABS: Hexagonal Phase Confirm Negative (Negative); Lupus dRVVT 1:1 Mix Interpreta Not Indicated; Lupus dRVVT Screen 39 sec (<=45); PTT-LA Screen 42 sec (<=40)
== END 2021-10-31 10:22 | disposition home or self-care (01) ==
LOC: CHSCARD 10:23
PROVIDERS: PCP Internal Medicine; Visit Provider Nurse Practitioner Family
DX: Z00.00 Encounter for general adult medical examination without abnormal findings (principal); R00.0 Tachycardia, unspecified; I10 Essential (primary) hypertension; D68.59 Other primary thrombophilia; E55.9 Vitamin D deficiency, unspecified
CPT/HCPCS: 36415; 80053; 80061; 81001; 81240; 82306; 83090; 84439; 84443; 85025; 85240; 85300; 85303; 85305; 85306; 85307; 85598; 85613; 85730; 86146; 86147; 93005

== ENCOUNTER 2021-11-21 12:11 | Outpatient (CLI) | payer BC, OTHER, SELFPAY ==
--- NOTE | 2021-11-21 01:00 | ECHO_ITS ---
Patient Info Name: Karla Hackett Age: 21 years : 2000 Gender: Female Ht: 66 in Wt: 265 lbs BSA: 2.43 m2 HR: 84 bpm BP: 114 / 70 mmHg Heart Rhythm: Sinus Rhythm Technical Quality: Fair Exam Date: 11/21/2021 12:08 PM Exam Location: [facility] Patient Status: Outpatient Admit Date: 11/21/2021 Staff Ordering Physician: Renetta, Akilah Oviedo NP Motor Builder Winder: Zeina Givens RDCS Attending Provider: MatildaAkilah NP Referring Physician: Rneetta NASH; Exam Type: CA echo doppler color flow Study Info Indications - ABNORMAL EKG Complete two-dimensional, color flow and Doppler transthoracic echocardiogram is performed. Summary 1. Complete two-dimensional, color flow and Doppler transthoracic echocardiogram is performed. 2. Left ventricular chamber dimension is normal. 3. Left ventricular systolic function is normal, estimated at 60-65%. 4. The left ventricular diastolic function is normal. 5. E/e' 9 is minimally elevated. 6. There is trace mitral valve regurgitation. 7. There is trace tricuspid valve regurgitation. 8. No pulmonary hypertension, estimated pulmonary arterial systolic pressure is 23 mmHg. Left Ventricle E/e' 9 is minimally elevated. Left ventricular chamber dimension is normal. Left ventricular systolic function is normal, estimated at 60-65%. The left ventricular diastolic function is normal. Right Ventricle Right ventricular systolic function is normal and with normal TAPSE 2.0 cm. Right ventricular chamber dimension is normal. Left Atria Left atrial chamber dimension is normal. Right Atria Right atrial chamber dimension is normal. Aortic Valve The aortic valve is trileaflet. There is no aortic valve stenosis. There is no aortic valve regurgitation. Pulmonic Valve There is no pulmonic regurgitation. Mitral Valve There is no mitral valve stenosis. There is trace mitral valve regurgitation. Tricuspid Valve There is trace tricuspid valve regurgitation. No pulmonary hypertension, estimated pulmonary arterial systolic pressure is 23 mmHg. Pericardium/Pleural There is no pericardial effusion. Inferior Vena Cava Normal inferior vena cava with >50% collapse upon inspiration consistent with normal right atrial pressure, 5 mmHg. Aorta The aortic root size at the sinus of Valsalva is normal. Left Ventricular Outflow Tract Name Value Normal LVOT 2D LVOT Diameter 2.0 cm LVOT Doppler LVOT Peak Velocity 95 cm/s LVOT Peak Gradient 4 mmHg LVOT Mean Gradient 2 mmHg LVOT VTI 16 cm LVOT VTI/AV VTI Ratio 0.7 LVOT Stroke Volume 52 ml Pulmonic Valve Name Value Normal RVOT Doppler RVOT Peak Gradient 2 mmHg
--- NOTE | 2021-11-24 11:59 | WPDHOLTEREM ---
Holter/Event Monitor Holter/Event Monitor Date of procedure: 11/24/21 Holter/Event Procedure: 24 Hr Holter Monitor Indications: Tachycardia Conclusion: 1. 24 hour holter monitor on 11/21/21. 2. Underlying rhythm is sinus rhythm. HR range 43-132 bpm; average HR 76 bpm. 3. There are 6 premature supraventricular complexes and 2 supraventricular couplets. No supraventricular tachycardia. 4. No premature ventricular complexes. No ventricular tachycardia. 5. No sinoatrial or atrioventricular blocks. No significant pauses greater than 2 seconds. 6. Patient reports chest pain which demonstrate sinus tachycardia at 112 bpm.
== END 2021-11-21 12:12 | disposition home or self-care (01) ==
LOC: CHSIMG 12:12
PROVIDERS: PCP Internal Medicine; Visit Provider Nurse Practitioner Family
DX: R94.31 Abnormal electrocardiogram [ECG] [EKG] (principal); R00.0 Tachycardia, unspecified; R00.2 Palpitations
CPT/HCPCS: 93225; 93226; 93306

== ENCOUNTER 2022-02-18 15:31 | Emergency (ER) | payer BC, OTHER, SELFPAY ==
[2022-02-18 15:35] VITALS: BP 151/96; PULSE 103; RESP 19; TEMP 36.5; O2SAT 97
--- NOTE | 2022-02-18 16:09 | ED.HA ---
HPI - Headache General Chief Complaint: Headache Stated Complaint: migraine, L eye pain, nauseous Time Seen by Provider: 02/18/22 16:09 Source: patient Mode of arrival: ambulatory Limitations: no limitations History of Present Illness HPI Narrative: 21-year-old female with a history of migraines presents to the ER 4 day history of -- frontal headache -- nausea without any vomiting. -- No photophobia/phonophobia the patient has had prior headaches in the past. her headaches usually last more than 2-3 days. the patient has taken triptans hands without any benefit. MD elicited complaint: headache Pertinent past history: migraines Onset (ago): day(s) ( Started 4 days ago) Onset description: gradually Location: frontal Quality & Timing: aching Exacerbating factors: none Relieving factors: nothing Context: occurred at rest Associated symptoms: nausea Treatments prior to arrival: none Related Data Home Medications Medication Instructions Recorded Confirmed atenolol 50 mg tablet 50 mg PO DAILY 04/30/21 02/18/22 multivitamin 1 tablet PO DAILY 06/06/21 02/18/22 oseltamivir 75 mg capsule 75 mg PO DAILY 08/22/21 02/18/22 Allergies Allergy/AdvReac Type Severity Reaction Status Date / Time Penicillins Allergy Severe FACIAL Verified 08/22/21 15:49 SWELLING Review of Systems Review of Systems: All systems reviewed & are unremarkable except as noted in HPI and below Constitutional: Constitutional: Reports as per HPI and Reports no additional constitutional complaints Eyes: Eyes: Reports as per HPI and Reports no additional eye complaints ENT: Reports system reviewed and no additional complaints, except as documented Cardiovascular: Cardiovascular: Reports as per HPI and Reports no additional cardiovascular complaints Respiratory: Respiratory: Reports as per HPI and Reports no additional respiratory complaints Gastrointestinal: Gastrointestinal: Reports as per HPI and Reports no additional gastrointestinal complaints Genitourinary: Genitourinary: Reports no additional female genitourinary complaints and Reports as per HPI Musculoskeletal: Musculoskeletal: Reports no additional musculoskeletal complaints and Reports as per HPI Integumentary/Breasts: Skin/Breast: Reports system reviewed and no additional complaints, except as docu and Reports as per HPI Neurologic: Reports system reviewed and no additional complaints, except as documented, Reports as per HPI and Reports headache(s) Psychiatric: Psychiatric: Reports no additional psychiatric complaints and Reports as per HPI Endocrine: Endocrine: Reports no additional endocrine complaints and Reports as per HPI Hematologic/Lymphatic: Hematologic/Lymphatic: Reports no additional hematologic/lymphatic complaints and Reports as per HPI Allergic/Immunologic: Allergic/Immunologic: Reports no additional allergic/immunologic complaints and Reports as per HPI PMFSH Past Medical History Medical History History of sinus tachycardia Morbid obesity Protein C deficiency Surgical History Surgical History No pertinent past surgical history Social History Social History Smoking status: Never smoker Alcohol intake: never Substance use: never Substance use type: does not use Spiritual care concerns: No Exam Const: General: healthy appearing Nutritional Appearance: well nourished Orientation/consciousness: patient oriented x3 Limitations: no limitations HENMT: Head: normal to inspection Ears: external ears normal Face/Nose/Sinus: Normal external nose present Face and sinus: normal facial exam Mouth: Yes Normal oral and palatal mucosa present Throat: posterior oropharynx normal Eyes: Conjunctivae: conjunctivae normal Pupils: Equal, round and reactive pupils present EOM: EOMs intact b
[2022-02-18] MEDS: KETOROLAC 30 MG/ML VIAL (*BKC) IM (16:46)
[2022-02-18] MEDS: PROCHLORPERAZINE EDISYLATE 10 MG/2 ML VIAL IM (16:47)
[2022-02-18 16:51] VITALS: BP 138/78; PULSE 85; RESP 20; O2SAT 98
[2022-02-18 17:48] VITALS: BP 145/76; PULSE 86; RESP 20; TEMP 36.5; O2SAT 97
== END 2022-02-18 17:40 | disposition home or self-care (01) ==
PROVIDERS: Emergency Provider Internal Medicine Critical Care Medicine; PCP Internal Medicine
DX: R51.9 Headache, unspecified (principal); I10 Essential (primary) hypertension
CPT/HCPCS: 96372; 99284; J0780; J1885

== ENCOUNTER 2022-05-12 16:25 | Outpatient (CLI) | payer BC, OTHER, SELFPAY ==
[2022-05-12 16:41] LABS: Hemoglobin 11.1 g/dL (12.0-15.0); Mean Corpuscular HGB Conc 31.7 g/dL (32.0-36.0); Mean Corpuscular Hemoglobin 26.8 pg (27.0-31.0); Mean Corpuscular Volume 84.5 fL (78.0-102.0); Mean Platelet Volume 10.5 fl (9.2-11.8); Platelet Count Result 220 K/mm3 (150-420); Red Blood Count 4.14 M/mm3 (4.20-5.40); Red Cell Distribution Width 13.7 % (11.6-14.4); White Blood Count 6.3 K/mm3 (4.8-10.8)
[2022-05-12 16:43] LABS: Add Urine Microscopic? YES; Appearance Urine Clear (Clear); Bilirubin Urine Negative (Negative); Blood Urine 2+ (Negative); Color Urine Yellow (Yellow); Glucose Urine UA Negative (Negative); Ketones Urine Negative (Negative); Leukocyte Esterase Ur Negative (Negative); Nitrate Urine Negative (Negative); Protein Urine Negative (Negative); Specific Grav Ur >= 1.030 (1.010-1.020)
[2022-05-12 16:53] LABS: Squamous Epithelial Cell Urine Occasional /hpf (Few); WBC Urine 0-3 /hpf (0-3)
[2022-05-12 16:54] LABS: Bacteria Urine Trace /hpf
[2022-05-12 17:13] LABS: Alanine Aminotransferase 46 U/L (14-59); Albumin Level 3.6 g/dL (3.4-5.0); Alkaline Phosphatase 111 U/L (46-116); Amylase 35 U/L (25-115); Anion Gap 10 mmol/L (8-16); Aspartate Amino Transferase 33 U/L (15-37); Bilirubin,Total 0.4 mg/dL (0.00-1.00); Blood Urea Nitrogen 9 mg/dL (7-18); Calcium 8.1 mg/dL (8.5-10.1); Carbon Dioxide 28 mmol/L (21-32); Chloride 104 mmol/L (98-108); Estimated Glomerular Filt Rate > 60; Glucose 99 mg/dL (70-99); Lipase 27 U/L (16-77); Osmolality Calculated 292 mOsm/kg (285-295); Sodium 142 mmol/L (136-145); Total Protein 6.7 g/dL (6.4-8.2)
[2022-05-12 17:17] LABS: Eosinophils Absolute Manual 0.12 K/mm3 (0.02-0.5); Eosinophils Percent Manual 2 % (1-6); Lymphocytes Absolute Manual 2.77 K/mm3 (1.1-4.5); Lymphocytes Percent Manual 44 % (18-44); Monocytes Absolute Manual 0.56 K/mm3 (0.1-0.90); Monocytes Percent Manual 9 % (3-9); Neutrophils Percent Manual 45 % (46-73); Platelet Estimate Adequate (Adequate); Total Cells Counted 100
== END 2022-05-12 16:26 | disposition home or self-care (01) ==
LOC: CHSLAB 16:28
PROVIDERS: PCP Internal Medicine; Visit Provider Internal Medicine
DX: R10.13 Epigastric pain (principal)
CPT/HCPCS: 36415; 80053; 81001; 82150; 83690; 85025

== ENCOUNTER 2022-05-13 13:44 | Outpatient (CLI) | payer BC, OTHER, SELFPAY ==
--- NOTE | ~2022-05-13 | US_ITS ---
EXAMINATION: US right upper quadrant DATE: 05/13/2022 14:18 INDICATION: Episgastric Pain TECHNIQUE: Multiple grayscale and Doppler ultrasound images of the right upper quadrant were obtained . COMPARISON: None available. FINDINGS: Pancreas is obscured. The liver is normal with normal echogenicity and echotexture. No surf reuben nodularity. Normal hepatopetal flow in the main portal vein. The gallbladder is normal with no ab normal wall thickening, pericholecystic fluid or stones. The common bile duct measures 3 mm. There wa s no sonographic Waters sign. IMPRESSION: Pancreas not visualized. Otherwise normal right upper quadrant ultrasound findings. Reviewed, dictated and finalized at location K. SEMAKER HELPER IMPRESSION: Pancreas not visualized. Otherwise normal right upper quadrant ultrasound findi ngs.
[2022-05-13 14:02] LABS: Hematocrit 36.8 % (35.0-49.0); Hemoglobin 11.8 g/dL (12.0-15.0); Immature Reticulocyte Fraction 14.1 % (2.0-16.52); Mean Corpuscular HGB Conc 32.1 g/dL (32.0-36.0); Mean Corpuscular Hemoglobin 26.8 pg (27.0-31.0); Mean Corpuscular Volume 83.6 fL (78.0-102.0); Mean Platelet Volume 10.2 fl (9.2-11.8); Platelet Count Result 221 K/mm3 (150-420); Red Cell Distribution Width 13.4 % (11.6-14.4); Reticulocyte Hemoglobin Conten 28.6 pg (28.0-35.0); Reticulocyte Percent 2.46 % (0.50-1.50); Reticulocytes Absolute 0.11 M/mm3 (0.02-0.1); White Blood Count 6.3 K/mm3 (4.8-10.8)
[2022-05-13 14:22] LABS: Atypical Lymphocytes Present; Band Neutrophils Percent 0 % (0-6); Eosinophils Absolute Manual 0.25 K/mm3 (0.02-0.5); Eosinophils Percent Manual 4 % (1-6); Lymphocytes Absolute Manual 2.89 K/mm3 (1.1-4.5); Lymphocytes Percent Manual 46 % (18-44); Monocytes Absolute Manual 0.75 K/mm3 (0.1-0.90); Monocytes Percent Manual 12 % (3-9); Neutrophils Absolute Manual 2.39 K/mm3 (1.7-7.2); Neutrophils Percent Manual 38 % (46-73); Platelet Estimate Adequate (Adequate); Schistocytes None Seen (NORMAL); Total Cells Counted 100
[2022-05-13 15:00] LABS: Ferritin 87 ng/mL (8-252); Iron 54 ug/dL (50-170); Phosphorus 4.1 mg/dL (3.4-5.5)
[2022-05-15 09:38] LABS: Methylmalonic Acid 121 nmol/L (87-318)
[2022-05-15 19:46] LABS: Ionized Calcium 4.7 mg/dL (4.8-5.6)
[2022-05-15 20:56] LABS: Vitamin D 1,25 (OH)2 Total 55 pg/mL (18-72); Vitamin D2 1,25 (OH)2 <8 pg/mL; Vitamin D3 1,25 (OH)2 55 pg/mL
[2022-05-16 18:16] LABS: Parathyroid Intact 53 pg/mL (14-64)
[2022-05-17 18:08] LABS: Vitamin D 25 Hydroxy 19 ng/mL (30-100)
== END 2022-05-13 13:45 | disposition home or self-care (01) ==
LOC: CHSLAB 13:46
PROVIDERS: PCP Internal Medicine; Visit Provider Internal Medicine
DX: R10.13 Epigastric pain (principal); D64.9 Anemia, unspecified; E83.51 Hypocalcemia
CPT/HCPCS: 36415; 76705; 82306; 82330; 82652; 82728; 83540; 83921; 83970; 84100; 85025; 85046

== ENCOUNTER 2022-06-16 19:43 | Emergency (ER) | payer BC, OTHER, SELFPAY ==
--- NOTE | ~2022-06-16 | XR_ITS ---
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 RESULT: Lines, tubes, and devices: None. Lungs and pleura: Clear. Cardiomediastinal silhouette: Stable. Other: No acute osseous or upper abdominal finding. IMPRESSION: No acute cardiopulmonary process. Reviewed, dictated and finalized at location K. ET DEVELOPER
[2022-06-16 19:51] VITALS: BP 149/94; PULSE 91; RESP 20; TEMP 36.6; O2SAT 98
--- NOTE | 2022-06-16 19:51 | ECG_ITS ---
Measurements Intervals [place] Rate: 87 P: 45 LA: 160 QRS: 5 QRSD: 86 T: 32 QT: 354 QTc: 426 Interpretive Statements SINUS RHYTHM DELAYED PRECORDIAL R/S TRANSITION BASELINE ARTIFACT- I, II, III, AVR, AVL, AVF, V1-V2 BORDERLINE ECG COMPARED TO ECG 10/31/2021 11:39:42 SINUS RHYTHM NOW PRESENT Electronically Signed On 06-16-2022 20:09:22 SERVICE TEAM LEADER by Hero Jean D.O.
--- NOTE | 2022-06-16 19:51 | ED.CHESTPAIN ---
HPI - Chest Pain General Chief Complaint: Chest Pain Stated Complaint: chest pain Time Seen by Provider: 06/16/22 19:51 Source: patient and RN notes reviewed Mode of arrival: ambulatory Limitations: no limitations History of Present Illness HPI narrative: patient states that she had an episode on her way to school this morning of chest tightness feeling dizzy and some fluttering in her chest. She has a history of tachycardia has had an echocardiogram and a Holter monitor which only showed the sinus tachycardia. She is currently on atenolol for that. She denies any associated nausea vomiting, diaphoresis, radiation of the chest tightness. She said that when she has the chest tightness she feels a little short of breath. complaint: chest heaviness Onset (ago): hour(s) (12) Timing of current episode: constant Onset: during rest Pain radiation: neck Quality: tightness Relieving factors: nothing Exacerbating factors: nothing Associated symptoms: dyspnea Treatment prior to arrival: none Risk Factors Coronary artery disease risk factors: none Thoracic aortic dissection risk factors: none Related Data Home Medications Medication Instructions Recorded Confirmed atenolol 50 mg tablet 50 mg PO DAILY 04/30/21 06/16/22 multivitamin 1 tablet PO DAILY 06/06/21 06/16/22 Allergies Allergy/AdvReac Type Severity Reaction Status Date / Time Penicillins Allergy Severe FACIAL Verified 06/16/22 20:04 SWELLING Review of Systems Review of Systems: All systems reviewed & are unremarkable except as noted in HPI and below PMFSH Past Medical History Medical History History of sinus tachycardia Morbid obesity Protein C deficiency Surgical History Surgical History No pertinent past surgical history Social History Social History Smoking status: Never smoker Alcohol intake: never Substance use: never Substance use type: does not use Living arrangements: with family Spiritual care concerns: No Exam Const: General: healthy appearing, no acute distress and alert Nutritional Appearance: well nourished and obese morbidly obese Orientation/consciousness: patient oriented x3 Limitations: no limitations HENMT: Head: normal to inspection Ears: external ears normal Face/Nose/Sinus: Normal external nose present Face and sinus: normal facial exam Mouth: Yes moist mucous membranes Eyes: Conjunctivae: conjunctivae normal Pupils: Equal, round and reactive pupils present EOM: EOMs intact bilaterally Neck: Neck: normal visual inspection Resp: Effort & Inspection: normal respiratory effort Auscultation: clear to auscultation bilaterally Cardio: Rate: regular rate Rhythm: regular rhythm Heart sounds: no murmurs GI: GI Palp: Yes Soft to palpation and No Tenderness to palpation present (GI) Auscultation: normal bowel sounds Back/Spine/Pelvis: Cervical Spine: cervical ROM normal Thoracic/Lumbar Spine: thoraco-lumbar ROM normal Skin: General skin exam: normal color Rashes: no rashes Neuro: General: patient oriented x3, moves all extremities, no focal motor deficits and CN's II-XI intact bilaterally Speech: normal speech Gait exam (Neuro): Normal gait present Extrem: General: normal to inspection and no clubbing, cyanosis or edema Psych: Mental Status: mental status grossly normal Affect: normal affect Attitude: cooperative Course Vital Signs Vital signs: Vital Signs Temperature 36.6 C 06/16/22 19:51 Pulse Rate 91 06/16/22 19:51 Respiratory Rate 06/16/22 19:51 Blood Pressure 149/94 H 06/16/22 19:51 Pulse Oximetry 98 06/16/22 19:51 Oxygen Delivery Room Air 06/16/22 19:51 Temperature 37.2 C 06/16/22 21:01 Pulse Rate 90 06/16/22 21:01 Respiratory Rate 20 06/16/22 21:01 Blood Pressure 127/83 06/16/22 21:01 Pul
[2022-06-16 20:02] VITALS: BP 125/84; PULSE 89; RESP 18; O2SAT 97
[2022-06-16 20:22] LABS: Basophils Absolute Auto 0.06 K/mm3 (0.00-0.10); Basophils Percent Auto 0.7 % (0.0-1.0); Eosinophils Absolute Auto 0.18 K/mm3 (0.02-0.50); Eosinophils Percent Auto 2.1 % (1.0-6.0); Hematocrit 39.7 % (35.0-49.0); Hemoglobin 12.7 g/dL (12.0-15.0); Immature Granulocyte Absolute 0.03 K/mm3 (0.00-0.00); Immature Granulocyte Percent A 0.3 % (0.0-0.0); Lymphocytes Absolute Auto 3.32 K/mm3 (1.10-4.50); Lymphocytes Percent Auto 37.9 % (18.0-42.0); Mean Corpuscular Hemoglobin 26.9 pg (27.0-31.0); Mean Corpuscular Volume 84.1 fL (78.0-102.0); Monocytes Absolute Auto 0.67 K/mm3 (0.10-0.90); Monocytes Percent Auto 7.6 % (2.0-11.0); Neutrophils Absolute Auto 4.5 K/mm3 (1.7-7.2); Neutrophils Percent Auto 51.4 % (50.0-70.0); Platelet Count Result 305 K/mm3 (150-420); Red Blood Count 4.72 M/mm3 (4.20-5.40); Red Cell Distribution Width 12.6 % (11.6-14.4); White Blood Count 8.8 K/mm3 (4.8-10.8)
[2022-06-16 20:36] LABS: Prothrombin Time 11.3 Seconds (9.50-12.10)
[2022-06-16 20:40] VITALS: PULSE 85; RESP 20; O2SAT 99
[2022-06-16 20:40] LABS: Alanine Aminotransferase 9 U/L (14-59); Albumin Level 3.5 g/dL (3.4-5.0); Alkaline Phosphatase 106 U/L (46-116); Anion Gap 6 mmol/L (8-16); Aspartate Amino Transferase 12 U/L (15-37); Bilirubin,Total 0.2 mg/dL (0.00-1.00); Blood Urea Nitrogen 11 mg/dL (7-18); Calcium 8.4 mg/dL (8.5-10.1); Carbon Dioxide 31 mmol/L (21-32); Chloride 102 mmol/L (98-108); Estimated CRCL calculation 144 ml/min; Estimated Glomerular Filt Rate > 60; Glucose 105 mg/dL (70-99); Osmolality Calculated 287 mOsm/kg (285-295); Potassium 3.8 mmol/L (3.5-5.1); Sodium 139 mmol/L (136-145); Total Protein 6.9 g/dL (6.4-8.2)
[2022-06-16 20:42] LABS: CRP < 0.5 mg/dL (0.0-0.9); Troponin I < 4.0 ng/L (0.00-60.4)
[2022-06-16 21:01] VITALS: BP 127/83; PULSE 90; RESP 20; TEMP 37.2; O2SAT 100
[2022-06-16 21:24] LABS: Thyroid Stimulating Hormone 3.06 uIU/mL (0.36-3.74)
== END 2022-06-16 21:06 | disposition home or self-care (01) ==
PROVIDERS: Emergency Provider Emergency Medicine; PCP Internal Medicine
DX: R07.89 Other chest pain (principal); R42 Dizziness and giddiness; R06.02 Shortness of breath
CPT/HCPCS: 36415; 71046; 80053; 84443; 84484; 85025; 85610; 86140; 93005; 99284

== ENCOUNTER 2022-06-17 12:53 | Outpatient (CLI) | payer BC, OTHER, SELFPAY ==
[2022-06-17 13:22] LABS: D Dimer 0.27 mg/L (0.19-0.50)
== END 2022-06-17 12:54 | disposition home or self-care (01) ==
LOC: CHSLAB 12:54
PROVIDERS: PCP Internal Medicine; Visit Provider Internal Medicine
DX: R07.9 Chest pain, unspecified (principal)
CPT/HCPCS: 36415; 85380

== ENCOUNTER 2022-07-19 20:53 | Emergency (ER) | payer BC, OTHER, SELFPAY ==
[2022-07-19 20:57] VITALS: BP 134/92; PULSE 101; RESP 14; TEMP 37.2; O2SAT 97
[2022-07-19] MEDS: ONDANSETRON INJ 4 MG/2 ML VIAL IV PUSH (21:24)
[2022-07-19 21:28] LABS: Basophils Absolute Auto 0.04 K/mm3 (0.00-0.10); Basophils Percent Auto 0.7 % (0.0-1.0); Eosinophils Absolute Auto 0.04 K/mm3 (0.02-0.50); Eosinophils Percent Auto 0.7 % (1.0-6.0); Hematocrit 38.6 % (35.0-49.0); Hemoglobin 12.4 g/dL (12.0-15.0); Immature Granulocyte Absolute 0.05 K/mm3 (0.00-0.00); Immature Granulocyte Percent A 0.8 % (0.0-0.0); Lymphocytes Absolute Auto 1.66 K/mm3 (1.10-4.50); Lymphocytes Percent Auto 27.5 % (18.0-42.0); Mean Corpuscular HGB Conc 32.1 g/dL (32.0-36.0); Mean Corpuscular Hemoglobin 26.6 pg (27.0-31.0); Mean Corpuscular Volume 82.7 fL (78.0-102.0); Mean Platelet Volume 10.3 fl (9.2-11.8); Monocytes Absolute Auto 0.53 K/mm3 (0.10-0.90); Monocytes Percent Auto 8.8 % (2.0-11.0); Neutrophils Absolute Auto 3.7 K/mm3 (1.7-7.2); Neutrophils Percent Auto 61.5 % (50.0-70.0); Platelet Count Result 280 K/mm3 (150-420); Red Blood Count 4.67 M/mm3 (4.20-5.40)
[2022-07-19 21:46] LABS: Alanine Aminotransferase 17 U/L (14-59); Albumin Level 3.4 g/dL (3.4-5.0); Alkaline Phosphatase 88 U/L (46-116); Anion Gap 8 mmol/L (8-16); Aspartate Amino Transferase 20 U/L (15-37); Bilirubin,Total 0.4 mg/dL (0.00-1.00); Blood Urea Nitrogen 7 mg/dL (7-18); Calcium 7.9 mg/dL (8.5-10.1); Carbon Dioxide 26 mmol/L (21-32); Chloride 103 mmol/L (98-108); Estimated CRCL calculation 185 ml/min; Estimated Glomerular Filt Rate > 60; Glucose 101 mg/dL (70-99); Osmolality Calculated 282 mOsm/kg (285-295); Potassium 3.6 mmol/L (3.5-5.1); Sodium 137 mmol/L (136-145)
[2022-07-19 21:47] LABS: Appearance Urine Clear (Clear); Bilirubin Urine Negative (Negative); Blood Urine Negative (Negative); Color Urine Light Yellow (Yellow); Glucose Urine UA Negative (Negative); Ketones Urine Negative (Negative); Leukocyte Esterase Ur 1+ (Negative); Nitrate Urine Negative (Negative); Protein Urine Negative (Negative); Specific Grav Ur 1.025 (1.010-1.020); Urobilinogen Urine 0.2 mg/dL (0.2-1.0)
[2022-07-19 22:00] LABS: Add Urine Microscopic? YES; Amorphous Sediment Urine Few; Bacteria Urine 1+ /hpf; Squamous Epithelial Cell Urine Many /hpf (Few)
[2022-07-19 22:10] LABS: Pregnancy On Board Control Positive; Urine Pregnancy Test Negative
[2022-07-19 22:50] LABS: Influenza A QL RT-PCR Negative (Negative); Influenza B QL RT-PCR Negative (Negative); SARS-CoV-2 RNA PCR Negative (Negative)
[2022-07-19 22:54] LABS: RSV RNA, RT-PCR Negative (Negative)
[2022-07-19] MEDS: SODIUM CHLORIDE 0.9% IV 1,000 ML 999 ML IV CONT (23:32)
[2022-07-19 23:53] VITALS: BP 136/72; PULSE 84; RESP 14; TEMP 37.1; O2SAT 100
--- NOTE | 2022-07-20 00:08 | ED.GENADULT ---
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 Complains of nausea vomiting diarrhea this started yesterday vomited 3 times food and bile. Loose watery nonbloody stools times 15 denies any abdominal pain initially but that she says she feels little cramping has had headache she rates her pain as a 6/10. Not taking anything for the pain. Past medical history tachycardia protein C deficiency, anxiety. Past surgical history T&A. Related Data Home Medications Medication Instructions Recorded Confirmed atenolol 50 mg tablet 50 mg PO DAILY 04/30/21 07/19/22 multivitamin 1 tablet PO DAILY 06/06/21 07/19/22 Allergies Allergy/AdvReac Type Severity Reaction Status Date / Time Penicillins Allergy Severe FACIAL Verified 06/16/22 20:04 SWELLING Review of Systems Constitutional: Constitutional: Reports no additional constitutional complaints and Denies fever(s) Eyes: Eyes: Reports no additional eye complaints ENT: Reports system reviewed and no additional complaints, except as documented Cardiovascular: Cardiovascular: Reports no additional cardiovascular complaints and Denies chest pain Respiratory: Respiratory: Reports no additional respiratory complaints, Denies cough and Denies dyspnea Gastrointestinal: Gastrointestinal: Reports as per HPI, Reports no additional gastrointestinal complaints, Reports abdominal pain, Denies constipation, Denies heartburn, Reports diarrhea, Reports nausea and Reports vomiting Genitourinary: Genitourinary: Reports no additional female genitourinary complaints, Denies abnormal vaginal bleeding, Denies hematuria, Denies nocturia and Denies flank pain Musculoskeletal: Musculoskeletal: Reports no additional musculoskeletal complaints Integumentary/Breasts: Skin/Breast: Reports system reviewed and no additional complaints, except as docu Neurologic: Reports system reviewed and no additional complaints, except as [facility] Past Medical History Medical History History of sinus tachycardia Morbid obesity Protein C deficiency Surgical History Surgical History No pertinent past surgical history Social History Social History Smoking status: Never smoker Alcohol intake: never Substance use: never Substance use type: does not use Living arrangements: with family Spiritual care concerns: No Exam Const: General: healthy appearing Nutritional Appearance: well nourished Orientation/consciousness: patient oriented x3 Limitations: no limitations HENMT: Head: normal to inspection Ears: external ears normal Face/Nose/Sinus: Normal external nose present Face and sinus: normal facial exam Mouth: Yes Normal oral and palatal mucosa present, Yes lip normal and Yes moist mucous membranes Teeth and gingiva: dentition normal Throat: posterior oropharynx normal Eyes: Conjunctivae: conjunctivae normal Pupils: Equal, round and reactive pupils present EOM: EOMs intact bilaterally Direct Ophthalmoscopy: no photophobia Neck: Neck: normal visual inspection, no lymphadenopathy and no meningeal signs Chest: Chest palpation & inspection: normal inspection of the chest Resp: Effort & Inspection: normal respiratory effort Auscultation: clear to auscultation bilaterally Cardio: Rate: regular rate Rhythm: regular rhythm Heart sounds: no murmurs GI: Inspection: non-distended GI Palp: Yes Soft to palpation, No Tenderness to palpation present (GI), No Guarding due to palpation present (GI), No Rigid due to palpation, No Hernia present, No Palpable mass present and No Rebound tenderness present Auscultation: normal bowel sounds : Ge
[2022-07-20] MEDS: CIPROFLOXACIN 500 MG TAB PO (00:30)
== END 2022-07-20 00:38 | disposition home or self-care (01) ==
PROVIDERS: Emergency Provider Emergency Medicine; PCP Internal Medicine
DX: K52.9 Noninfective gastroenteritis and colitis, unspecified (principal); N39.0 Urinary tract infection, site not specified; Z20.822 Contact with and (suspected) exposure to COVID-19
CPT/HCPCS: 36415; 80053; 81001; 81025; 85025; 87637; 96374; 99284; A9270; J2405; J7030

== ENCOUNTER 2022-07-29 11:36 | Outpatient (CLI) | payer BC, OTHER, SELFPAY ==
[2022-07-29 11:48] LABS: Bilirubin Urine Negative (Negative); Blood Urine 2+ (Negative); Color Urine Yellow (Yellow); Glucose Urine UA Negative (Negative); Ketones Urine Negative (Negative); Leukocyte Esterase Ur 1+ (Negative); Nitrate Urine Negative (Negative); Protein Urine Negative (Negative); Specific Grav Ur >= 1.030 (1.010-1.020); Urobilinogen Urine 0.2 mg/dL (0.2-1.0)
[2022-07-29 12:08] LABS: Add Urine Microscopic? YES; Appearance Urine Slightly Cloudy (Clear); Bacteria Urine 1+ /hpf; Squamous Epithelial Cell Urine Moderate /hpf (Few); WBC Urine None seen /hpf (0-3)
== END 2022-07-29 11:37 | disposition home or self-care (01) ==
LOC: CHSLAB 11:38
PROVIDERS: PCP Internal Medicine; Visit Provider Internal Medicine
DX: N39.0 Urinary tract infection, site not specified (principal)
CPT/HCPCS: 81001; 87086; 87088

== ENCOUNTER 2022-08-25 11:54 | Outpatient (CLI) | payer BC, OTHER, SELFPAY ==
[2022-08-25 12:19] LABS: Basophils Absolute Auto 0.06 K/mm3 (0.00-0.10); Basophils Percent Auto 0.8 % (0.0-1.0); Eosinophils Absolute Auto 0.11 K/mm3 (0.02-0.50); Eosinophils Percent Auto 1.5 % (1.0-6.0); Hematocrit 39.1 % (35.0-49.0); Hemoglobin 12.5 g/dL (12.0-15.0); Immature Granulocyte Absolute 0.02 K/mm3 (0.00-0.00); Immature Granulocyte Percent A 0.3 % (0.0-0.0); Lymphocytes Absolute Auto 2.61 K/mm3 (1.10-4.50); Lymphocytes Percent Auto 36.7 % (18.0-42.0); Mean Corpuscular Hemoglobin 26.5 pg (27.0-31.0); Mean Corpuscular Volume 82.8 fL (78.0-102.0); Mean Platelet Volume 10.2 fl (9.2-11.8); Monocytes Absolute Auto 0.65 K/mm3 (0.10-0.90); Monocytes Percent Auto 9.1 % (2.0-11.0); Neutrophils Absolute Auto 3.7 K/mm3 (1.7-7.2); Neutrophils Percent Auto 51.6 % (50.0-70.0); Platelet Count Result 303 K/mm3 (150-420); Red Blood Count 4.72 M/mm3 (4.20-5.40); Red Cell Distribution Width 13.1 % (11.6-14.4); White Blood Count 7.1 K/mm3 (4.8-10.8)
[2022-08-25 12:36] LABS: Alanine Aminotransferase 21 U/L (14-59); Albumin Level 3.7 g/dL (3.4-5.0); Alkaline Phosphatase 95 U/L (46-116); Anion Gap 8 mmol/L (8-16); Aspartate Amino Transferase 14 U/L (15-37); Bilirubin,Total 0.3 mg/dL (0.00-1.00); Blood Urea Nitrogen 12 mg/dL (7-18); Calcium 8.6 mg/dL (8.5-10.1); Carbon Dioxide 27 mmol/L (21-32); Chloride 105 mmol/L (98-108); Estimated Glomerular Filt Rate > 60; Glucose 96 mg/dL (70-99); Osmolality Calculated 289 mOsm/kg (285-295); Potassium 4.2 mmol/L (3.5-5.1); Sodium 140 mmol/L (136-145); Total Protein 7.4 g/dL (6.4-8.2)
== END 2022-08-25 11:55 | disposition home or self-care (01) ==
LOC: CHSLAB 11:58
PROVIDERS: PCP Internal Medicine; Visit Provider Internal Medicine
DX: E78.5 Hyperlipidemia, unspecified (principal); D64.9 Anemia, unspecified
CPT/HCPCS: 36415; 80053; 85025

== ENCOUNTER 2022-09-02 12:36 | Outpatient (CLI) | payer BC, OTHER, SELFPAY ==
--- NOTE | 2022-09-03 10:28 | WPDNEUROLOGY ---
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 Seizure stoped around the age of 15. Lately though, she is having episodes of decrease in awareness with eyes fluttering, which Only last for few seconds then she feels fine. EEG DESCRIPTION Basic resting occipital frequency consists of 10 to 11 hertz per second medium voltage alpha, well-organized with good anteroposterior gradient. Low-voltage beta activity seen diffusely with waxing and waning posterior alpha rhythm during drowsiness. Regular EKG artifact is noted intermittently. Bilateral symmetrical sleep activity seen during sleep with mixture of beta and theta and alpha activity. Hyperventilation not done. Photic stimulation produced normal drive. Non paroxysmal. Nonfocal. Nonlateralizing. IMPRESSION Normal record with no evidence of electrical discharge throughout the tracing
== END 2022-09-02 12:37 | disposition home or self-care (01) ==
LOC: ANHNEURO 12:36
PROVIDERS: PCP Internal Medicine; Visit Provider Student in an Organized Health Care Education/Training Program
DX: R56.9 Unspecified convulsions (principal)
CPT/HCPCS: 95816

== ENCOUNTER 2022-09-30 02:12 | Emergency (ER) | payer BC, OTHER, SELFPAY ==
[2022-09-30 02:20] VITALS: BP 144/95; PULSE 88; RESP 20; TEMP 37.2; O2SAT 98
--- NOTE | 2022-09-30 02:34 | ED.HA ---
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 or so this afternoon, slowly worsened through the evening, and she had just been started on Ubrelvy and took her 1st 100 mg tablet of that earlier tonight. She reports that really the did not have much of an effect, she has had photophobia, nausea, and the discomfort is currently about an 8/10, and she feels like her aura is just about to start and was wanted to try to abort this so that she could work tomorrow. this is her characteristic migraine, and there is no change to. She denies any recent sinus drainage, sore throat, coughing, chest pain, shortness breast, palpitations, near-syncope or syncope. Denies any recent abdominal pain, diarrhea or constipation, dysuria urgency or frequency Related Data Home Medications Medication Instructions Recorded Confirmed atenolol 50 mg tablet 50 mg PO DAILY 04/30/21 09/30/22 escitalopram oxalate 5 mg tablet 5 mg PO DAILY 09/30/22 09/30/22 Allergies Allergy/AdvReac Type Severity Reaction Status Date / Time Penicillins Allergy Severe FACIAL Verified 06/16/22 20:04 SWELLING Review of Systems Review of Systems: All systems reviewed & are unremarkable except as noted in HPI and below (her HPI) [facility] Past Medical History Medical History History of sinus tachycardia Morbid obesity Protein C deficiency Surgical History Surgical History No pertinent past surgical history Social History Social History Smoking status: Never smoker Alcohol intake: never Substance use: never Substance use type: does not use Lack of Transportation: No Lack of Food: Never True Current Housing: I Have Housing Concerned About Future Housing: No Difficulty Paying Gas/Electric Bills: No Difficulty Paying for Meds: No Currently Unemployed: No Education: High School Diploma/GED Difficulty w/ Childcare or Family Care: No Living arrangements: with family Spiritual care concerns: No Exam Narrative: pleasant, awake, alert, looks uncomfortable but not in distress, well-oriented Const: General: healthy appearing and no acute distress Nutritional Appearance: well nourished Orientation/consciousness: patient oriented x3 Limitations: no limitations HENMT: Head: normal to inspection Face/Nose/Sinus: Normal external nose present Face and sinus: normal facial exam Eyes: Conjunctivae: conjunctivae normal Pupils: Equal, round and reactive pupils present EOM: EOMs intact bilaterally Direct Ophthalmoscopy: photophobia Neck: Neck: normal visual inspection Resp: Effort & Inspection: normal respiratory effort Neuro: General: patient oriented x3 and moves all extremities Speech: normal speech Gait exam (Neuro): Normal gait present Extrem: General: normal to inspection Psych: Mental Status: mental status grossly normal Affect: normal affect Attitude: cooperative Course Course Emergency Course: differential diagnosis includes but is not limited to migraine headache versus non migraine headache. While the chance of cluster or other type of headache is present, her presentation, history, and exam all are consistent with her typical migraine headache. Will give her 10 mg of Compazine IP, 25 of Benadryl IP, 38 Toradol IV, and 10 of Decadron IV, and a L of saline and will reassess. 3:25 a.m. t
[2022-09-30] MEDS: PROCHLORPERAZINE EDISYLATE 10 MG/2 ML VIAL IV PUSH (02:54)
[2022-09-30] MEDS: diphenhydrAMINE HCl INJ 50 MG/ML VIAL 25 MG IV PUSH (02:55)
[2022-09-30] MEDS: KETOROLAC 30 MG/ML VIAL (*BKC) IV PUSH (02:55)
[2022-09-30] MEDS: SODIUM CHLORIDE 0.9% IV 500 ML 999 ML IV CONT (02:58)
--- NOTE | 2022-09-30 03:36 | ED.HA ---
HPI - Headache General Chief Complaint: Headache Stated Complaint: Migraine Time Seen by Provider: 09/30/22 02:19 Source: patient Mode of arrival: ambulatory Limitations: no limitations History of Present Illness HPI Narrative: 21-year-old white female with a long history of migraine headaches, reports he used to happen relatively frequently perhaps once a week or so. He she got started on Topamax up about 8 months ago, since then the headache frequency has dropped to about once every 2 months or so. She was recently given a prescription for Ubrelvy and she took the 1st dose a bit tonight after developing headache around 3:00 p.m. today. She reports the headache gradually was worsening, and then she started feeling this sensation she does before she gets the ER, and took this dose of Ubrelvy. It has not helped, and she has come in with nausea, Emesis,photophobia, 8/10 pain primarily on the left side, and is requesting assistance. There has been no recent fever or chills, sinus drainage, sore throat, cough, chest pain, palpitations, no nausea vomiting leading up to this headache, no abdominal pain, no diarrhea or constipation, dysuria urgency or frequency. Related Data Home Medications Medication Instructions Recorded Confirmed atenolol 50 mg tablet 50 mg PO DAILY 04/30/21 09/30/22 escitalopram oxalate 5 mg tablet 5 mg PO DAILY 09/30/22 09/30/22 Allergies Allergy/AdvReac Type Severity Reaction Status Date / Time Penicillins Allergy Severe FACIAL Verified 06/16/22 20:04 SWELLING PMFSH Past Medical History Medical History History of sinus tachycardia Morbid obesity Protein C deficiency Surgical History Surgical History No pertinent past surgical history Social History Social History Smoking status: Never smoker Alcohol intake: never Substance use: never Substance use type: does not use Lack of Transportation: No Lack of Food: Never True Current Housing: I Have Housing Concerned About Future Housing: No Difficulty Paying Gas/Electric Bills: No Difficulty Paying for Meds: No Currently Unemployed: No Education: High School Diploma/GED Difficulty w/ Childcare or Family Care: No Living arrangements: with family Spiritual care concerns: No Exam Narrative: pleasant, appears uncomfortable, lying in a dark room, shielding her eyes Const: General: healthy appearing Nutritional Appearance: well nourished Orientation/consciousness: patient oriented x3 Limitations: no limitations HENMT: Head: normal to inspection Ears: external ears normal Face and sinus: normal facial exam Eyes: Conjunctivae: conjunctivae normal Pupils: Equal, round and reactive pupils present EOM: EOMs intact bilaterally Direct Ophthalmoscopy: no photophobia Neck: Neck: normal visual inspection Resp: Effort & Inspection: normal respiratory effort Skin: General skin exam: normal color Rashes: no rashes Wounds: no wounds Neuro: General: patient oriented x3 Cranial nerves: Yes Nystagmus not present Speech: normal speech Gait exam (Neuro): Normal gait present Extrem: General: normal to inspection Psych: Mental Status: mental status grossly normal Affect: normal affect Attitude: cooperative Course Course Emergency Course: differential diagnosis includes but is not limited to recurrent known migraine, headache, non migrainous, sinusitis less likely by history. Will treat her headache as a migraine headache and evaluate response. IV was placed and she was given IV Toradol, Compazine, Benadryl, Decadron, with good result as well as 1 L of normal saline. I discussed home treatment, and will discharge with Compazine, Benadryl, Naprosyn to take as needed differential diagnosis, workup, treatment, diagnosis, treatment plan and d
[2022-09-30 03:43] VITALS: BP 118/70; PULSE 85; RESP 20; TEMP 36.9; O2SAT 97
== END 2022-09-30 03:46 | disposition home or self-care (01) ==
PROVIDERS: Emergency Provider Emergency Medicine; PCP Internal Medicine
DX: G43.909 Migraine, unspecified, not intractable, without status migrainosus (principal)
CPT/HCPCS: 96361; 96374; 96375; 99284; J0780; J1100; J1200; J1885; J7040

== ENCOUNTER 2022-10-13 09:55 | Outpatient (CLI) | payer BC, OTHER, SELFPAY ==
[2022-10-13 10:47] LABS: SARS-CoV-2 RNA PCR Negative (Negative)
== END 2022-10-13 09:56 | disposition home or self-care (01) ==
LOC: CHSLAB 09:57
PROVIDERS: PCP Internal Medicine; Visit Provider Internal Medicine
DX: J06.9 Acute upper respiratory infection, unspecified (principal); Z20.822 Contact with and (suspected) exposure to COVID-19
CPT/HCPCS: 87635

== ENCOUNTER 2022-12-02 23:50 | Emergency (ER) | payer BC, OTHER, SELFPAY ==
[2022-12-02 23:50] VITALS: BP 140/82; PULSE 82; RESP 20; TEMP 36.6; O2SAT 99
--- NOTE | 2022-12-03 00:09 | ECG_ITS ---
Measurements Intervals [place] Rate: 74 P: 38 [place]: 174 QRS: -3 QRSD: 86 T: 19 QT: 369 QTc: 410 Interpretive Statements SINUS RHYTHM LOW QRS VOLTAGE IN PRECORDIAL LEADS CONSIDER ANTERIOR INFARCT, AGE INDETERMINATE BASELINE ARTIFACT- I, II, III, AVR, AVL, AVF, V1-V2, V6 ABNORMAL ECG COMPARED TO ECG 06/16/2022 19:57:12 NO SIGNIFICANT CHANGES Electronically Signed On 12-03-2022 6:52:41 CDT by Hero Jean D.O.
--- NOTE | 2022-12-03 00:09 | ED.SYNCOPE ---
HPI - Syncope General Chief Complaint: Dizziness Stated Complaint: Hair Grooming Sync Time Seen by Provider: 12/02/22 23:52 Source: patient Mode of arrival: ambulatory Limitations: no limitations History of Present Illness HPI narrative: 22-year-old female with a history of protein C deficiency, migraine, absence seizures had recent video EEG monitoring at [facility] and was discharged yesterday. Today 30 minutes ago her aunt was attempting to remove EEG monitoring electrode glue from her hair when she passed out. The patient's color changed but she did not fall back. Her aunt had her lay back and raise her legs following which she regained consciousness and her usual mental status within a minute. The patient did not have any urinary incontinence. No seizure activity was noted. No focal deficit was noted. Subsequently the patient complains of -- generalized headache. this headache is different from her usual migraine headaches. She does not have any photophobia or phonophobia. The headache is rated as 7/10. -- dizziness -- chest discomfort MD complaint: felt faint Onset (ago): minute(s) ( 30 minutes ago) Duration of episode: 1 -: minutes(s) Prodromal symptoms: none Witnessed: Yes - by Bystander Context: at rest Injuries sustained associated with event: none Current symptoms: lightheaded, headache and chest pain ( chest discomfort) History: seizure disorder Treatments prior to arrival: none Related Data Home Medications Medication Instructions Recorded Confirmed atenolol 50 mg tablet 50 mg PO DAILY 04/30/21 12/03/22 escitalopram oxalate 5 mg tablet 5 mg PO DAILY 09/30/22 12/03/22 Allergies Allergy/AdvReac Type Severity Reaction Status Date / Time Penicillins Allergy Severe FACIAL Verified 10/24/22 00:09 SWELLING Review of Systems Review of Systems: All systems reviewed & are unremarkable except as noted in HPI and below Constitutional: Constitutional: Reports as per HPI and Reports no additional constitutional complaints Eyes: Eyes: Reports as per HPI and Reports no additional eye complaints ENT: Reports system reviewed and no additional complaints, except as documented and Reports as per HPI Cardiovascular: Cardiovascular: Reports as per HPI, Reports no additional cardiovascular complaints and Reports chest pain ( chest discomfort) Respiratory: Respiratory: Reports as per HPI and Reports no additional respiratory complaints Gastrointestinal: Gastrointestinal: Reports as per HPI and Reports no additional gastrointestinal complaints Genitourinary: Genitourinary: Reports no additional female genitourinary complaints and Reports as per HPI Musculoskeletal: Musculoskeletal: Reports no additional musculoskeletal complaints and Reports as per HPI Integumentary/Breasts: Skin/Breast: Reports system reviewed and no additional complaints, except as docu and Reports as per HPI Neurologic: Reports system reviewed and no additional complaints, except as documented, Reports as per HPI, Reports dizziness and Reports headache(s) Psychiatric: Psychiatric: Reports no additional psychiatric complaints and Reports as per HPI Endocrine: Endocrine: Reports no additional endocrine complaints and Reports as per HPI Hematologic/Lymphatic: Hematologic/Lymphatic: Reports no additional hematologic/lymphatic complaints and Reports as per HPI Allergic/Immunologic: Allergic/Immunologic: Reports no additional allergic/immunologic complaints and Reports as per HPI PMFSH Past Medical History Medical History History of sinus tachycardia Morbid obesity Protein C deficiency Surgical History Surgical History No pertinent past surgical history Social History Social History Smoking status: Never smoker Alcohol intake: never Substance use: never
[2022-12-03 00:21] LABS: Glucose Point of Care 84 mg/dl (65-105)
[2022-12-03 00:25] LABS: Appearance Urine Clear (Clear); Bilirubin Urine Negative (Negative); Blood Urine Negative (Negative); Color Urine Light Yellow (Yellow); Glucose Urine UA Negative (Negative); Ketones Urine Negative (Negative); Leukocyte Esterase Ur 2+ LEU/UL (Negative); Nitrate Urine Negative (Negative); Protein Urine Negative (Negative); Specific Grav Ur 1.025 (1.010-1.020); Urobilinogen Urine 0.2 mg/dL (0.2-1.0); pH Urine 5.5 (5.0-8.0)
[2022-12-03 00:34] LABS: Add Urine Microscopic? YES
[2022-12-03 00:35] LABS: Bacteria Urine 1+ /hpf; Basophils Absolute Auto 0.06 K/mm3 (0.00-0.10); Basophils Percent Auto 0.7 % (0.0-1.0); Eosinophils Absolute Auto 0.14 K/mm3 (0.02-0.50); Eosinophils Percent Auto 1.5 % (1.0-6.0); Hemoglobin 12.2 g/dL (12.0-15.0); Immature Granulocyte Percent A 1.1 % (0.0-0.0); Lymphocytes Absolute Auto 2.64 K/mm3 (1.10-4.50); Lymphocytes Percent Auto 28.6 % (18.0-42.0); Mean Corpuscular HGB Conc 32.1 g/dL (32.0-36.0); Mean Corpuscular Hemoglobin 27.1 pg (27.0-31.0); Mean Corpuscular Volume 84.4 fL (78.0-102.0); Mean Platelet Volume 10.6 fl (9.2-11.8); Monocytes Absolute Auto 0.69 K/mm3 (0.10-0.90); Monocytes Percent Auto 7.5 % (2.0-11.0); Mucus Urine Few /lpf; Neutrophils Absolute Auto 5.6 K/mm3 (1.7-7.2); Neutrophils Percent Auto 60.6 % (50.0-70.0); Platelet Count Result 283 K/mm3 (150-420); Red Cell Distribution Width 12.9 % (11.6-14.4); Squamous Epithelial Cell Urine Moderate /hpf (Few); Urine Pregnancy Test Negative; White Blood Count 9.2 K/mm3 (4.8-10.8)
[2022-12-03 00:36] LABS: Pregnancy On Board Control Positive
[2022-12-03 00:41] LABS: Prothrombin Time 10.9 Seconds (9.50-12.10)
[2022-12-03 00:49] LABS: Alanine Aminotransferase 21 U/L (14-59); Albumin Level 3.5 g/dL (3.4-5.0); Alkaline Phosphatase 88 U/L (46-116); Anion Gap 11 mmol/L (8-16); Aspartate Amino Transferase 12 U/L (15-37); Bilirubin,Total 0.2 mg/dL (0.00-1.00); Blood Urea Nitrogen 12 mg/dL (7-18); Calcium 8.6 mg/dL (8.5-10.1); Carbon Dioxide 25 mmol/L (21-32); Chloride 103 mmol/L (98-108); Estimated CRCL calculation 99 ml/min; Estimated Glomerular Filt Rate > 60; Glucose 93 mg/dL (70-99); Osmolality Calculated 287 mOsm/kg (285-295); Potassium 3.8 mmol/L (3.5-5.1); Sodium 139 mmol/L (136-145); Total Protein 6.8 g/dL (6.4-8.2)
[2022-12-03 00:50] LABS: Troponin I < 4.0 ng/L (0.00-60.4)
[2022-12-03 00:52] LABS: Lactic Acid Reflex 0.8 mmol/L (0.4-2.0)
[2022-12-03] MEDS: KETOROLAC 30 MG/ML VIAL (*BKC) IM (00:55)
[2022-12-03 01:08] VITALS: BP 126/80; PULSE 72; RESP 20; TEMP 36.6; O2SAT 99
--- NOTE | 2022-12-05 13:12 | PC.NURSE ---
Final urine culture report: no growth, no further action or treatment needed.
== END 2022-12-03 01:17 | disposition home or self-care (01) ==
PROVIDERS: Emergency Provider Internal Medicine Critical Care Medicine; PCP Internal Medicine
DX: R55 Syncope and collapse (principal); R51.9 Headache, unspecified; R07.9 Chest pain, unspecified
CPT/HCPCS: 36415; 80053; 81001; 81025; 82948; 83605; 84484; 85025; 85610; 87086; 93005; 96372; 99284; J1885

== ENCOUNTER 2023-01-25 11:53 | Outpatient (CLI) | payer BC, OTHER, SELFPAY ==
[2023-01-25 12:27] LABS: Influenza Control Valid (Valid); SARS-CoV-2 Ag Positive (Negative)
== END 2023-01-25 11:54 | disposition home or self-care (01) ==
LOC: CHSLAB 11:55
PROVIDERS: PCP Internal Medicine; Visit Provider Internal Medicine
DX: U07.1 COVID-19 (principal); J06.9 Acute upper respiratory infection, unspecified
CPT/HCPCS: 87426; 87804; C9803

== ENCOUNTER 2023-02-26 11:59 | Outpatient (CLI) | payer BC, OTHER, SELFPAY ==
[2023-02-26 12:23] LABS: Basophils Absolute Auto 0.09 K/mm3 (0.00-0.10); Basophils Percent Auto 1.1 % (0.0-1.0); Eosinophils Absolute Auto 0.24 K/mm3 (0.02-0.50); Hemoglobin 12.6 g/dL (12.0-15.0); Immature Granulocyte Absolute 0.03 K/mm3 (0.00-0.00); Immature Granulocyte Percent A 0.4 % (0.0-0.0); Lymphocytes Absolute Auto 2.85 K/mm3 (1.10-4.50); Lymphocytes Percent Auto 35.9 % (18.0-42.0); Mean Corpuscular HGB Conc 32.3 g/dL (32.0-36.0); Mean Corpuscular Hemoglobin 27.3 pg (27.0-31.0); Mean Corpuscular Volume 84.4 fL (78.0-102.0); Monocytes Absolute Auto 0.64 K/mm3 (0.10-0.90); Monocytes Percent Auto 8.1 % (2.0-11.0); Neutrophils Absolute Auto 4.1 K/mm3 (1.7-7.2); Neutrophils Percent Auto 51.5 % (50.0-70.0); Platelet Count Result 307 K/mm3 (150-420); Red Blood Count 4.62 M/mm3 (4.20-5.40); Red Cell Distribution Width 12.8 % (11.6-14.4); White Blood Count 7.9 K/mm3 (4.8-10.8)
[2023-02-26 12:38] LABS: Alanine Aminotransferase 15 U/L (14-59); Albumin Level 3.8 g/dL (3.4-5.0); Alkaline Phosphatase 95 U/L (46-116); Anion Gap 8 mmol/L (8-16); Aspartate Amino Transferase 11 U/L (15-37); Bilirubin,Total 0.4 mg/dL (0.00-1.00); Blood Urea Nitrogen 12 mg/dL (7-18); CRP 0.7 mg/dL (0.0-0.9); Calcium 8.8 mg/dL (8.5-10.1); Carbon Dioxide 23 mmol/L (21-32); Chloride 105 mmol/L (98-108); Estimated Glomerular Filt Rate > 60; Glucose 93 mg/dL (70-99); Osmolality Calculated 281 mOsm/kg (285-295); Potassium 4.1 mmol/L (3.5-5.1); Sodium 136 mmol/L (136-145); Total Protein 6.4 g/dL (6.4-8.2)
[2023-02-28 16:24] LABS: Levetiracetam Keppra 13.2 mcg/mL (6.0-46.0)
== END 2023-02-26 12:00 | disposition home or self-care (01) ==
LOC: CHSLAB 12:03
PROVIDERS: PCP Internal Medicine; Visit Provider Nurse Practitioner Family
DX: M25.561 Pain in right knee (principal); L50.9 Urticaria, unspecified; G40.802 Other epilepsy, not intractable, without status epilepticus
CPT/HCPCS: 36415; 73562; 80053; 80177; 85025; 86140

== ENCOUNTER 2023-03-09 15:19 | Emergency (ER) | payer BC, OTHER, SELFPAY ==
[2023-03-09 15:20] VITALS: BP 122/70; PULSE 56; RESP 20; TEMP 36.4; O2SAT 100
--- NOTE | 2023-03-09 15:47 | ED.LOWEXIN ---
HPI - Extremity Injury (Lower) General Chief Complaint: Extremity Injury, Lower Stated Complaint: R knee pain Time Seen by Provider: 03/09/23 15:47 Source: patient Mode of arrival: ambulatory Limitations: no limitations History of Present Illness HPI Narrative: This is a 22-year-old female that presents to the emergency department for right knee injury. Sustained a couple of weeks ago. She was evaluated at another emergency room for this with a negative x-ray. She has continued to have pain. She has been wearing the brace they recommended with some relief. Denies decreased range of motion or numbness. No new injuries. Related Data Home Medications Medication Instructions Recorded Confirmed atenolol 50 mg tablet 50 mg PO DAILY 04/30/21 12/03/22 escitalopram oxalate 5 mg tablet 5 mg PO DAILY 09/30/22 12/03/22 Allergies Allergy/AdvReac Type Severity Reaction Status Date / Time Penicillins Allergy Severe FACIAL Verified 03/09/23 15:20 SWELLING Review of Systems Review of Systems: CONSTITUTIONAL: Denies fever MUSCULOSKELETAL: Reports joint pain, and myalgia. NEUROLOGIC: Denies numbness, or weakness. All systems reviewed & are unremarkable except as noted in HPI and below PMFSH Past Medical History Medical History History of sinus tachycardia Morbid obesity Protein C deficiency Surgical History Surgical History No pertinent past surgical history Social History Social History Smoking status: Never smoker Alcohol intake: never Substance use: never Substance use type: does not use Lack of Transportation: No Lack of Food: Never True Current Housing: I Have Housing Concerned About Future Housing: No Difficulty Paying Gas/Electric Bills: No Difficulty Paying for Meds: No Currently Unemployed: No Education: High School Diploma/GED Difficulty w/ Childcare or Family Care: No Living arrangements: with family Occupation/Education: occupation Gender identity (if verbalized by the patient): Female Sexual Orientation (if Verbalized by the Patient): Straight or Heterosexual Spiritual care concerns: No Exam Narrative: GENERAL: Well-appearing, well-nourished, and in no acute distress. HEAD: Normocephalic, atraumatic. EYES: EOMI. EXTREMITIES: Normal range of motion. No edema, erythema. Normal DP pulse. Normal sensation SKIN: Warm, dry, no rash. NEURO: No focal deficits. Alert and oriented x3. PSYCH: Normal mood and affect Course Course Emergency Course: Patient agrees with current plan of care. Encouraged follow-up with orthopedics for persistent pain Vital Signs Vital signs: Vital Signs Temperature 97.5 F L 03/09/23 15:20 Pulse Rate 56 L 03/09/23 15:20 Respiratory Rate 20 03/09/23 15:20 Blood Pressure 122/70 03/09/23 15:20 Pulse Oximetry 100 03/09/23 15:20 Oxygen Delivery Room Air 03/09/23 15:20 Temperature 97.5 F L 03/09/23 15:20 Pulse Rate 56 L 03/09/23 15:20 Respiratory Rate 20 03/09/23 15:20 Blood Pressure 122/70 03/09/23 15:20 Pulse Oximetry 100 03/09/23 15:20 Oxygen Delivery Room Air 03/09/23 15:20 MDM - Extremity Injury (Lower) MDM Narrative Medical decision making narrative: Patient presents to the emergency department for continued right knee pain after an injury a couple of weeks ago. She was evaluated at [facility], had an x-ray that was negative. No new injuries since that time. She is neurovascularly intact. Reports she has been wearing a brace with some improvement. Will be given crutches. She is to follow-up with orthopedics. She was given warnings to return to the ER Differential Diagnosis Differential diagnosis: Likely acute internal derangement of knee Critical Care Time Critical Care Time Critical Care Time: No Discharge [facility]
== END 2023-03-09 16:03 | disposition home or self-care (01) ==
PROVIDERS: Emergency Provider Physician Assistant; PCP Internal Medicine
DX: M25.561 Pain in right knee (principal)
CPT/HCPCS: 99283

== ENCOUNTER 2023-04-16 07:00 | Emergency (ER) | payer BC, OTHER, SELFPAY ==
--- NOTE | ~2023-04-16 | XR_ITS ---
Portable chest x-ray Comparison: 06/16/2022 Clinical History: Chest pain Findings: Lungs are clear, without focal consolidation or pleural effusion. Cardiomediastinal silho uette is stable. Bones and soft tissues are unremarkable. Impression: Normal chest. Reviewed, dictated and finalized at [facility]. [employer]ESS [employer]IT[employer] Impression: Normal chest.
[2023-04-16 07:00] VITALS: BP 125/73; PULSE 80; RESP 16; TEMP 36.7; O2SAT 96
--- NOTE | 2023-04-16 07:30 | ED.URI ---
HPI - URI/Sore Throat General Chief Complaint: Upper Respiratory Infection Stated Complaint: cough; pain with breathing Time Seen by Provider: 04/16/23 07:15 Source: patient Mode of arrival: ambulatory Limitations: no limitations History of Present Illness HPI Narrative: Patient is a 22-year-old female with no significant past medical history that presents today for coughing and minor chest pain with cough. Patient states she has been having this for 3 days now. He states the chest pain is worse when she has the cough. She says just started taking a deep breath because she feels like she has so much that her costochondral muscles hurt. She has no history of cardiac problems. She says she does have a history of sinus tachycardia and does take atenolol for that. She says all EKGs in the past have always been normal except for the 1 that showed she had sinus tachycardia. She denies any shortness of breath. She does have upper respiratory symptoms as well. MD elicited complaint: cough, sore throat and nasal congestion Onset (ago): day(s) Consistency: constant Severity: mild Description of mucous: yellow Able to tolerate fluids by mouth: Yes Exacerbating factors: deep breaths Relieving factors: nothing Context: sick contacts Associated symptoms: nasal congestion, sore throat, cough and chest pain Treatments prior to arrival: acetaminophen and ibuprofen Related Data Home Medications Medication Instructions Recorded Confirmed atenolol 50 mg tablet 50 mg PO DAILY 04/30/21 04/16/23 escitalopram oxalate 5 mg tablet 5 mg PO DAILY 09/30/22 04/16/23 Allergies Allergy/AdvReac Type Severity Reaction Status Date / Time Penicillins Allergy Severe FACIAL Verified 04/16/23 07:07 SWELLING Review of Systems Review of Systems: All systems reviewed & are unremarkable except as noted in HPI and below Constitutional: Constitutional: Reports as per HPI Eyes: Eyes: Reports as per HPI and Reports no additional eye complaints ENT: Reports system reviewed and no additional complaints, except as documented Cardiovascular: Cardiovascular: Reports as per HPI and Reports chest pain Respiratory: Respiratory: Reports as per HPI, Reports chest congestion and Reports cough Gastrointestinal: Gastrointestinal: Reports as per HPI and Reports no additional gastrointestinal complaints Genitourinary: Genitourinary: Reports no additional female genitourinary complaints Musculoskeletal: Musculoskeletal: Reports no additional musculoskeletal complaints Integumentary/Breasts: Skin/Breast: Reports system reviewed and no additional complaints, except as docu Neurologic: Reports system reviewed and no additional complaints, except as documented Psychiatric: Psychiatric: Reports no additional psychiatric complaints Endocrine: Endocrine: Reports no additional endocrine complaints Hematologic/Lymphatic: Hematologic/Lymphatic: Reports no additional hematologic/lymphatic complaints [facility] Past Medical History Medical History History of sinus tachycardia Morbid obesity Protein C deficiency Surgical History Surgical History History of tonsillectomy Family History Family History Father Cerebrovascular accident Tachycardia Social History Social History Smoking status: Never smoker Alcohol intake: current Alcohol use details: occasionally Substance use: never Substance use type: does not use Lack of Transportation: No Lack of Food: Never True Current Housing: I Have Housing Concerned About Future Housing: No Difficulty Paying Gas/Electric Bills: No Difficulty Paying for Meds: No Currently Unemployed: No Education: High School Diploma/GED Difficulty w/ Childcare or Family Care: No Living arrangements:
[2023-04-16 07:56] LABS: Appearance Urine Clear (Clear); Bilirubin Urine Negative (Negative); Blood Urine Negative (Negative); Color Urine Light Yellow (Yellow); Glucose Urine UA Negative (Negative); Ketones Urine Negative (Negative); Leukocyte Esterase Ur Trace (Negative); Nitrate Urine Negative (Negative); Protein Urine Negative (Negative); Urobilinogen Urine 0.2 mg/dL (0.2-1.0)
[2023-04-16] MEDS: cefTRIAXone 1 GM, LIDOCAINE HCL 1% LOCAL INJ 2.1 ML IM (07:56)
[2023-04-16] MEDS: BENZONATATE 100 MG CAPSULE PO (07:57)
[2023-04-16] MEDS: DOXYCYCLINE HYCLATE 100 MG TABLET PO (07:57)
[2023-04-16 07:59] LABS: Add Urine Microscopic? YES; RBC Urine None seen /hpf (0-2); Squamous Epithelial Cell Urine Few /hpf (Few); WBC Urine 0-3 /hpf (0-3)
[2023-04-16 08:00] LABS: Bacteria Urine Rare /hpf
[2023-04-16 08:27] VITALS: BP 125/73; PULSE 80; RESP 16; TEMP 36.7; O2SAT 96
== END 2023-04-16 08:27 | disposition home or self-care (01) ==
PROVIDERS: Emergency Provider Family Medicine; PCP Internal Medicine
DX: J06.9 Acute upper respiratory infection, unspecified (principal); J18.9 Pneumonia, unspecified organism; Z79.899 Other long term (current) drug therapy
CPT/HCPCS: 71045; 81001; 96372; 99283; A9270; J0696

== ENCOUNTER 2023-06-05 10:38 | Outpatient (CLI) | payer BC, OTHER, SELFPAY ==
--- NOTE | ~2023-06-05 | MR_ITS ---
MRI of the brain Clinical History: Headache Technique: Axial and sagittal T1-weighted images were acquired. These were followed by axial T2-weigh johanna, diffusion weighted, gradient, and FLAIR images. Findings: No abnormal signal seen in the brain parenchyma. There is no acute infarct, mass lesion, or intracranial hemorrhage. Ventricles and subarachnoid spaces are unremarkable. Orbits are unremarkable. Paranasal sinuses and m astoid air cells are clear. Major intracranial flow voids are intact. Sagittal midline structures are intact. No mass lesion identified at the internal auditory canals or CP angle regions. IMPRESSION: Unremarkable exam. Reviewed, dictated and finalized at location [facility]. [facility]IGATOR IMPRESSION: Unremarkable exam.
== END 2023-06-05 10:39 | disposition home or self-care (01) ==
LOC: CHSIMG 10:39
PROVIDERS: PCP Internal Medicine; Visit Provider Internal Medicine
DX: G40.909 Epilepsy, unspecified, not intractable, without status epilepticus (principal); R51.9 Headache, unspecified
CPT/HCPCS: 70551

== ENCOUNTER 2023-06-15 07:09 | Outpatient (CLI) | payer BC, OTHER, SELFPAY ==
[2023-06-15 07:42] LABS: Hematocrit 39.6 % (37.0-47.0); Hemoglobin 12.6 g/dL (12.0-15.0); Mean Corpuscular HGB Conc 31.8 g/dl (32-36); Mean Corpuscular Hemoglobin 27.2 pg (26-34); Mean Corpuscular Volume 85.3 fl (80-100); Mean Platelet Volume 10.1 fl (7.4-10.4); Platelet Count Result 326 k/mm3 (150-375); Red Blood Count 4.64 M/mm3 (4.2-5.4); Red Cell Distribution Width 13.1 % (11.5-14.5); White Blood Count 6.5 K/mm3 (4.5-10.0)
[2023-06-15 07:44] LABS: Appearance Urine Clear (Clear); Bilirubin Urine Negative (Negative); Blood Urine Negative (Negative); Color Urine Yellow (Yellow); Glucose Urine UA Negative (Negative); Ketones Urine Trace mg/dL (Negative); Leukocyte Esterase Ur Negative LEU/UL (NEGATIVE); Nitrate Urine Negative (Negative); Protein Urine Negative (Negative); Specific Grav Ur 1.025 (1.001-1.035); Urobilinogen Urine 0.2 mg/dL (<2.0); pH Urine 5.5 (5.0-9.0)
[2023-06-15 07:52] LABS: Add Urine Microscopic? NO
[2023-06-15 07:54] LABS: Alanine Aminotransferase 17 U/L (6-35); Albumin Level 3.9 g/dL (3.5-5.1); Alkaline Phosphatase 91 U/L (38-126); Amylase 64 U/L (30-110); Anion Gap 8 mmol/L (8-16); Aspartate Amino Transferase 27 U/L (14-36); Bilirubin,Total 0.2 mg/dL (0.2-1.3); Blood Urea Nitrogen 7 mg/dL (7-17); Calcium 8.3 mg/dL (8.4-10.2); Carbon Dioxide 22 mmol/L (22-30); Chloride 109 mmol/L (98-107); Estimated Glomerular Filt Rate > 60; Glucose 102 mg/dL (65-110); Lipase 90 U/L (23-300); Potassium 3.7 mmol/L (3.4-5.0); Sodium 139 mmol/L (137-145)
[2023-06-15 08:24] LABS: Free T4 Free Thyroxine 1.36 ng/mL (0.78-2.19)
[2023-06-18 06:20] LABS: Triiodothyronine T3 Free 3.3 pg/mL (2.3-4.2)
== END 2023-06-15 07:10 | disposition home or self-care (01) ==
LOC: ANHLAB 07:13
PROVIDERS: PCP Internal Medicine; Visit Provider Internal Medicine
DX: R19.7 Diarrhea, unspecified (principal); R10.9 Unspecified abdominal pain
CPT/HCPCS: 36415; 80053; 81003; 82150; 83690; 84439; 84443; 84481; 85027

== ENCOUNTER 2023-06-29 09:07 | Emergency (ER) | payer BC, OTHER, SELFPAY ==
--- NOTE | ~2023-06-29 | XR_ITS ---
XR chest 1V portable DATE: 06/29/2023 10:34 INDICATION: Midline chest pain TECHNIQUE: Portable AP chest on June 29, 2023 1029 hours COMPARISON: April 16, 2023 portable AP chest FINDINGS: Normal heart size. No hilar or mediastinal enlargement. No pulmonary infiltrate or consolid ation, pleural effusion or pulmonary vascular congestion or pneumothorax is detected. IMPRESSION: No active cardiopulmonary disease Reviewed, dictated and finalized at location [facility]. [facility]EM[facility]
[2023-06-29 09:08] VITALS: BP 140/92; PULSE 67; RESP 16; TEMP 36.4; O2SAT 99
--- NOTE | 2023-06-29 09:13 | ECG_ITS ---
Measurements Intervals [place] Rate: 53 P: 23 [place]: 164 QRS: 2 QRSD: 95 T: 22 QT: 412 QTc: 387 Interpretive Statements SINUS BRADYCARDIA LOW QRS VOLTAGE IN PRECORDIAL LEADS [QRS DEFLECTION < 1.0 mV IN CHEST LEADS] POSSIBLE ANTERIOR MYOCARDIAL INFARCTION , OF INDETERMINATE AGE [30 ms Q WAVE IN V3/V4, OR R < 0.2 mV IN V4] NO PREVIOUS ECG AVAILABLE FOR COMPARISON Electronically Signed On 06-29-2023 15:15:18 [employer] by Lisy Frank M.D.
[2023-06-29 09:57] VITALS: BP 129/75; PULSE 55; RESP 19; TEMP 36.8; O2SAT 100
[2023-06-29 10:14] LABS: Basophils Absolute Auto 0.1 K/mm3 (0.0-0.1); Basophils Percent Auto 0.8 % (0.2-1.2); Eosinophils Absolute Auto 0.2 K/mm3 (0-0.3); Eosinophils Percent Auto 2.1 % (0-4.4); Hematocrit 38.2 % (37.0-47.0); Hemoglobin 11.8 g/dL (12.0-15.0); Immature Granulocyte Absolute 0.03 K/mm3 (0.00-0.031); Immature Granulocyte Percent A 0.4 % (0-0.5); Lymphocytes Absolute Auto 2.96 K/mm3 (0.9-3.2); Lymphocytes Percent Auto 34.8 % (18.3-44.2); Mean Corpuscular HGB Conc 30.9 g/dl (32-36); Mean Corpuscular Hemoglobin 26.8 pg (26-34); Mean Corpuscular Volume 86.6 fl (80-100); Mean Platelet Volume 10.4 fl (7.4-10.4); Monocytes Absolute Auto 0.7 K/mm3 (0.1-0.6); Monocytes Percent Auto 8.7 % (2.6-8.5); Neutrophils Absolute Auto 4.5 K/mm3 (1.3-6.7); Neutrophils Percent Auto 53.2 % (45.5-73.1); Platelet Count Result 305 k/mm3 (150-375); Red Blood Count 4.41 M/mm3 (4.2-5.4); Red Cell Distribution Width 13.2 % (11.5-14.5); White Blood Count 8.5 K/mm3 (4.5-10.0)
[2023-06-29 10:24] LABS: Alanine Aminotransferase 14 U/L (6-35); Albumin Level 3.8 g/dL (3.5-5.1); Alkaline Phosphatase 69 U/L (38-126); Anion Gap 4 mmol/L (8-16); Aspartate Amino Transferase 22 U/L (14-36); Bilirubin,Total 0.3 mg/dL (0.2-1.3); Blood Urea Nitrogen 12 mg/dL (7-17); Calcium 8.9 mg/dL (8.4-10.2); Carbon Dioxide 25 mmol/L (22-30); Chloride 108 mmol/L (98-107); Estimated CRCL calculation 141 ml/min; Estimated Glomerular Filt Rate > 60; Glucose 86 mg/dL (65-110); Lipase 57 U/L (23-300); Sodium 137 mmol/L (137-145)
[2023-06-29 10:28] LABS: Partial Thromboplastin Time 34.5 SECONDS (22.3-36.8)
[2023-06-29 10:36] LABS: Troponin I < 0.012 ng/mL (0.000-0.034)
[2023-06-29 11:07] LABS: D Dimer 0.32 ug/mL (<0.48)
--- NOTE | 2023-06-29 11:36 | ED.CHESTPAIN ---
HPI - Chest Pain General Chief Complaint: Chest Pain Stated Complaint: chest pain Time Seen by Provider: 06/29/23 09:34 History of Present Illness HPI narrative: Patient is a 22-year-old female who presents to the emergency department this complaining of chest pain. Patient states that the pain initially started yesterday morning and has been intermittent but eventually did go away. Patient states that when she woke up this morning around 6:00 a.m. she noticed that the chest pain did return and she finally decided to come to the emergency department for further evaluation. Patient reports increased anxiety and does seem to be anxious. She denies any associated shortness of breath. Describes the pain as a tight sensation in her chest, denies any sharp stabbing pain and admits that the pain does not radiate. Patient denies any additional symptoms including nausea, vomiting, abdominal pain, dysuria, hematuria, constipation, diarrhea, melena, hematochezia, fevers or chills. Patient also denies any headaches, dizziness, lightheadedness, blurry visions, focal weakness, numbness and or tingling. There are no other modifying, alleviating, or precipitating factors at this time. Related Data Home Medications Medication Instructions Recorded Confirmed atenolol 50 mg tablet 50 mg PO DAILY 03/24/22 Allergies Allergy/AdvReac Type Severity Reaction Status Date / Time Penicillins Allergy Severe facial Verified 03/24/22 08:24 swelling Review of Systems Review of Systems: All systems are reviewed and are negative unless stated otherwise in the HPI. [facility] Social History Social History Smoking status: Never smoker Comments Patient denies any significant past medical or surgical history, denies family history of cardiovascular disease as far she is aware and denies any tobacco use, alcohol abuse, illicit drug use. Exam Narrative: General: Alert, awake, afebrile, in no acute distress, anxious. HEENT: PERRL, no rhinorrhea, no post nasal drip, oropharynx clear. Neck: Trachea midline, no JVD, no lymphadenopathy. Cardiovascular: Regular rate and rhythm, no murmurs, rubs or gallops, no peripheral edema. Respiratory: Clear to auscultation bilaterally, no tachypnea, no wheezing, no rhonchi, no rubs, no respiratory distress. Abdomen: Soft, nontender, nondistended, no rebound, no guarding, no peritoneal signs. Musculoskeletal: No joint swelling or deformity, normal muscle tone. Skin: No rashes or petechia, no signs of infection. Psychiatric: Alert and oriented, normal behavior and judgment for situation. Neurological: Alert and oriented to person, place, and time. Follows all commands. No focal deficits, speech is clear and fluent. Course Vital Signs Vital signs: Vital Signs Temperature 97.6 F 06/29/23 09:08 Pulse Rate 67 06/29/23 09:08 Respiratory Rate 16 06/29/23 09:08 Blood Pressure 140/92 H 06/29/23 09:08 Pulse Oximetry 99 06/29/23 09:08 Temperature 98.2 F 06/29/23 09:57 Pulse Rate 53 L 06/29/23 11:52 Respiratory Rate 16 06/29/23 11:52 Blood Pressure 128/72 06/29/23 11:52 Pulse Oximetry 100 06/29/23 11:52 MDM - Chest Pain MDM Narrative Medical decision making narrative: The patient was evaluated by myself in the emergency department. History is obtained from patient who is an independent historian and physical exam was performed. External medical records were reviewed at this time. IV was established and pertinent tests were ordered. EKG was obtained which revealed sinus bradycardia rate of 53 beats per minute. No ST changes, T wave inversions or evidence of acute ischemia. EKG was independently interpreted by me and is currently pending official cardiology read. Laboratory results obtained including a D-dimer and 2 sets of troponins which were all noted to be within normal limits. Imaging studies obtained included CX
[2023-06-29 11:52] VITALS: BP 128/72; PULSE 53; RESP 16; O2SAT 100
[2023-06-29 12:29] LABS: Troponin I < 0.012 ng/mL (0.000-0.034)
[2023-06-29 13:08] VITALS: BP 128/73; PULSE 58; RESP 17; TEMP 36.8; O2SAT 100
== END 2023-06-29 13:08 | disposition home or self-care (01) ==
PROVIDERS: Emergency Provider Emergency Medicine; PCP Internal Medicine
DX: R07.89 Other chest pain (principal)
CPT/HCPCS: 36415; 71045; 80053; 83690; 84484; 85025; 85380; 85610; 85730; 93005; 99284

== ENCOUNTER 2023-08-30 07:23 | Outpatient (CLI) | payer BC, OTHER, SELFPAY ==
[2023-08-30 07:54] LABS: Pregnancy On Board Control Positive; Urine Pregnancy Test Negative
[2023-08-30 08:48] LABS: Alanine Aminotransferase 25 U/L (14-59); Albumin Level 3.4 g/dL (3.4-5.0); Alkaline Phosphatase 91 U/L (46-116); Anion Gap 7 mmol/L (4-12); Aspartate Amino Transferase 20 U/L (15-37); Bilirubin,Total 0.3 mg/dL (0.00-1.00); Blood Urea Nitrogen 9 mg/dL (7-18); Calcium 7.9 mg/dL (8.5-10.1); Carbon Dioxide 29 mmol/L (21-32); Chloride 104 mmol/L (98-108); Estimated Glomerular Filt Rate > 60; Free T4 Free Thyroxine 1.03 ng/dL (0.76-1.46); Glucose 90 mg/dL (70-99); Osmolality Calculated 288 mOsm/kg (285-295); Phosphorus 4.3 mg/dL (3.4-5.5); Potassium 4.2 mmol/L (3.5-5.1); Sodium 140 mmol/L (136-145); Thyroid Stimulating Hormone 3.94 uIU/mL (0.36-3.74); Total Protein 6.4 g/dL (6.4-8.2)
[2023-09-01 09:59] LABS: Vitamin D 25 Hydroxy 24 ng/mL (30-100)
[2023-09-03 13:43] LABS: Vitamin D 1,25 (OH)2 Total 21 pg/mL (18-72); Vitamin D2 1,25 (OH)2 <8 pg/mL; Vitamin D3 1,25 (OH)2 21 pg/mL
== END 2023-08-30 07:24 | disposition home or self-care (01) ==
PROVIDERS: PCP Internal Medicine
DX: R53.83 Other fatigue (principal); E83.52 Hypercalcemia
CPT/HCPCS: 36415; 80053; 81025; 82306; 82652; 84100; 84439; 84443

== ENCOUNTER 2023-08-31 13:00 | Outpatient (CLI) | payer BC, OTHER, SELFPAY ==
[2023-08-31 14:05] LABS: Calcium 7.6 mg/dL (8.5-10.1); Magnesium 1.8 mg/dL (1.8-2.4); Phosphorus 4.1 mg/dL (3.4-5.5)
[2023-09-01 14:14] LABS: Parathyroid Intact 121 pg/mL (16-77)
== END 2023-08-31 13:01 | disposition home or self-care (01) ==
LOC: CHSLAB 13:03
PROVIDERS: PCP Internal Medicine
DX: E83.51 Hypocalcemia (principal)
CPT/HCPCS: 36415; 82310; 83735; 83970; 84100

== ENCOUNTER 2023-09-28 13:54 | Outpatient (CLI) | payer BC, OTHER, SELFPAY ==
[2023-09-28 15:05] LABS: Alanine Aminotransferase 23 U/L (14-59); Albumin Level 3.4 g/dL (3.4-5.0); Alkaline Phosphatase 80 U/L (46-116); Anion Gap 6 mmol/L (4-12); Aspartate Amino Transferase 13 U/L (15-37); Bilirubin,Total 0.4 mg/dL (0.00-1.00); Blood Urea Nitrogen 12 mg/dL (7-18); Calcium 9.1 mg/dL (8.5-10.1); Carbon Dioxide 31 mmol/L (21-32); Chloride 100 mmol/L (98-108); Estimated Glomerular Filt Rate > 60; Glucose 88 mg/dL (70-99); Osmolality Calculated 282 mOsm/kg (285-295); Potassium 4.6 mmol/L (3.5-5.1); Sodium 137 mmol/L (136-145); Total Protein 6.2 g/dL (6.4-8.2)
== END 2023-09-28 13:55 | disposition home or self-care (01) ==
LOC: CHSLAB 13:58
PROVIDERS: PCP Internal Medicine; Visit Provider Nurse Practitioner Family
DX: R00.2 Palpitations (principal); R00.0 Tachycardia, unspecified
CPT/HCPCS: 36415; 80053; 83735

== ENCOUNTER 2023-10-05 10:46 | Outpatient (CLI) | payer BC, OTHER, SELFPAY ==
--- NOTE | 2023-10-07 14:37 | WPDHOLTEREM ---
Holter/Event Monitor Holter/Event Monitor Date of procedure: 10/05/23 Holter/Event Procedure: 48 Hr Holter Monitor Indications: Palpitations Conclusion: 1. 48 hour holter monitor on 10/05/23. 2. Underlying rhythm is sinus rhythm. HR range 48-135 bpm; average 87 bpm. HR at 48 bpm was at 13:25. 3. There are 3 premature supraventricular complexes and 2 supraventricular couplets. No supraventricular tachycardia. 4. There is 1 premature ventricular complex. No ventricular tachycardia. 5. No sinoatrial or atrioventricular blocks. No signifiant pauses greater than 2 seconds. 6. Patient reports symptoms of beating hard, dizziness chest tightness which demonstrate sinus rhythm, HR range 81-110 bpm
== END 2023-10-05 10:47 | disposition home or self-care (01) ==
LOC: CHSCARD 10:47
PROVIDERS: PCP Internal Medicine; Visit Provider Nurse Practitioner Family
DX: R00.2 Palpitations (principal); R00.0 Tachycardia, unspecified
CPT/HCPCS: 93225; 93226

== ENCOUNTER 2023-11-12 07:45 | Outpatient (CLI) | payer BC, OTHER, SELFPAY ==
[2023-11-12 08:49] LABS: Calcium 8.5 mg/dL (8.5-10.1)
[2023-11-13 11:54] LABS: Parathyroid Intact 67 pg/mL (16-77)
[2023-11-14 06:35] LABS: Vitamin D 25 Hydroxy 54 ng/mL (30-100)
== END 2023-11-12 07:46 | disposition home or self-care (01) ==
LOC: CHSLAB 07:47
PROVIDERS: PCP Internal Medicine; Visit Provider Nurse Practitioner Family
DX: E83.51 Hypocalcemia (principal)
CPT/HCPCS: 36415; 82306; 82310; 83970

== ENCOUNTER 2023-12-28 08:43 | Outpatient (CLI) | payer BC, OTHER, SELFPAY | END 2023-12-28 08:44 | disposition home or self-care (01) | PROVIDERS: PCP Internal Medicine; Visit Provider Otolaryngology | DX: H91.91 Unspecified hearing loss, right ear (principal) | CPT/HCPCS: 92557; 92567 ==

== ENCOUNTER 2023-12-31 02:02 | Day surgery (SDC) | payer BC, OTHER, SELFPAY ==
[2023-12-29 12:57] VITALS: BMI 46.2
--- NOTE | 2023-12-29 13:08 | PC.NURSE ---
Report to the Outpatient Waiting Room, entrance under the green pavilion located off [facility], at time __0745_ on date _12/31/23. Planned Procedure Time: 0945_. Time changes happen often and if your time is changed the preop area will call you the afternoon before. - You and your visitor will be asked to self-screen and do not enter if you have any COVID symptoms. - A mask is optional within the hospital at this time. Patients may have clear liquids (water, carbonated beverages, clear teas, apple juice) until 3 hours prior to surgery with a maximum of 20 ounces. - No food from midnight until time of surgery - Infants may have breast milk until 4 hours before surgery, formula 6 hours prior to surgery. - Children will be allowed to drink immediately following surgery. If applicable, please bring a bottle or sippy cup to assist with drinking. Juice, water, soda, and popsicles are readily available. For infants on formula, please bring formula the day of surgery. Pacifiers are allowed. Take the following medications with a SIP of water the morning of surgery: _KEPPRA, PROPANOLOL, PREDNISONE DO NOT STOP ANY OF YOUR OTHER PRESCRIPTION MEDICATIONS PRIOR TO SURGERY ?EXCEPT THE FOLLOWING Medications to discontinue per physician MULTIVITAMIN, PROBIOTIC Date to take last dose 12/29/23 Please no make-up, nail tamazight, hairspray, perfume, deodorant, or body powder the day of surgery. No jewelry (including any body piercings) or valuables the day of surgery, leave them at home. Please take a shower or bath the night before, or the morning of, surgery with an antibacterial soap. Wear comfortable, loose fitting clothing. Children are encouraged to wear pajamas. - Jewelry must be removed prior to entering the operating room. Rings and piercings that are not removed may be cut off. - The hospital will not accept responsibility for valuables. - Please leave all valuables, including medications, at home the day of surgery. If you are going home after surgery, a licensed superintendent drivers must drive you home. - NO public transportation without another adult if you receive anesthesia. - We recommend that an adult stay with you for 24 hours following discharge. - We also recommend that you do not drive, make important decision, drink alcoholic beverages, or take any drugs that were not prescribed by your health care provider for at least 24 hours after your discharge time. For Pediatric surgeries, we recommend two adults accompany the child home. Follow any additional instructions given to you from your surgeon. If you or anyone in your household have experienced Covid symptoms in the past week, please notify your surgeon or the nurse liaison at the phone number below for possible testing. Telephone instructions given to PATIENT_and asked if any additional questions and then verbalized understanding. Patient advised to call surgeon office or pre surgery nurse liaison [phone] if any additional questions.
--- NOTE | 2023-12-30 16:21 | PM.IMHP ---
H&P: HPI History of Present Illness Date/Time: 12/30/23 16:21 Chief Complaint: adenoid cyst adenoiditis tonsillitis dysphagia Narrative: planned procedure Review of Systems Review of Systems: All systems reviewed & are unremarkable except as noted in HPI and below [facility] Past Medical History Medical History History of sinus tachycardia Morbid obesity Protein C deficiency Surgical History Surgical History History of tonsillectomy Family History Family History Father Cerebrovascular accident Tachycardia Social History Social History Smoking status: Never smoker Alcohol intake: current Alcohol use details: 6 PER YEAR Substance use: never Substance use type: does not use Lack of Transportation: No Lack of Food: Never True Current Housing: I Have Housing Concerned About Future Housing: No Difficulty Paying Gas/Electric Bills: No Difficulty Paying for Meds: No Currently Unemployed: No Education: High School Diploma/GED Difficulty w/ Childcare or Family Care: No Living arrangements: with family Occupation/Education: occupation 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[employer] Gender identity (if verbalized by the patient): Female Sexual Orientation (if Verbalized by the Patient): Straight or Heterosexual Spiritual care concerns: No Meds Home Medications and Allergies Home Medications Medication Instructions Recorded Confirmed Type famotidine 40 mg tablet 40 mg PO DAILY 10/14/23 12/29/23 History levetiracetam 500 mg 500 mg PO DAILY 10/14/23 12/29/23 History tablet,extended release 24 hr (Keppra XR) propranolol 120 mg capsule,24 120 mg PO DAILY 10/14/23 12/29/23 History hr,extended release clindamycin HCl 300 mg capsule 300 mg PO Q8H #21 caps 12/23/23 12/29/23 Rx montelukast 10 mg tablet 10 mg PO DAILY 12/23/23 12/29/23 History lactobacillus combination no.4 3 3,000 mmu cells PO DAILY 12/29/23 12/29/23 History billion cell capsule (Probiotic) multivitamin 1 tablet PO DAILY 12/29/23 12/29/23 History prednisone 20 mg tablet See Rx Instructions .Route .COMPLEX 12/29/23 12/29/23 History Allergies Allergy/AdvReac Type Severity Reaction Status Date / Time Penicillins Allergy Severe facial Verified 12/29/23 12:51 swelling Exam Narrative: tonsillar regrowth adenoid hypertrophy nasopharyngeal cyst Assessment and Plan Assessment and plan (1) Adenoid hypertrophy: Code(s): J35.2 - Hypertrophy of adenoids Status: Acute (2) Adenoiditis: Code(s): J35.02 - Chronic adenoiditis Status: Acute (3) Tonsil asymmetry: Code(s): J35.8 - Other chronic diseases of tonsils and adenoids Status: Acute (4) Recurrent tonsillitis: Code(s): J03.91 - Acute recurrent tonsillitis, unspecified Status: Acute Plan plan OR adenoidectomy revision tonsillectomy risks discussed bleeding infection damage to other structures failure to resolve symptoms need for further procedures especially given that this is her 2nd tonsillectomy. Regrowth of adenoids or tonsils in this patient. Postoperative bleeding 3-5% time off work school inherent risk of narcotic use inherent risk of any medication we may prescribe. Damage any structures the clavicle by myself damage to any structure induction remains anesthesia including vocal cord paralysis. Patient voiced understanding of these risks and agreed. We may need to go transnasally for the adenoid tissue from not able to remove a trans orally. Patient voiced understanding of the risks and agreed.
[2023-12-31] VITALS (11 sets, daily range): BP systolic 109–129; BP diastolic 69–84; PULSE 58–96; RESP 15–24; TEMP 36.2–36.9; O2SAT 92–99
--- NOTE | 2023-12-31 07:32 | WPDHPUPDATE1 ---
History and Physical Update Update Date/Time: 12/31/23 07:32 History and Physical has been reviewed, including an updated exam of the patient. There are NO changes in the patient's condition. Risks, benefits, and alternatives have been discussed and questions answered. Patient agrees to proceed with procedure.
[2023-12-31] MEDS: ACETAMINOPHEN 500 MG TABLET 1000 MG PO (08:15)
[2023-12-31] MEDS: LACTATED RINGERS 1,000 ML 30 ML IV CONT (08:15)
--- NOTE | 2023-12-31 08:17 | WPDANESEPPF ---
Anes - Initial Pre Proc Eval Procedure: Operation Date: 12/31/23 09:45 Proposed Procedures p Revision Tonsillectomy And Adenoidectomy - Leo Starr MD Date/Time: 12/31/23 08:17 Surgeon: Leo Starr MD Pre Op Diagnosis: Chronic Tonsillitis, Recurrent Adenoiditis Patient Data Age: 23 Gender: F Height: 1.68 m Weight: 130 kg Allergies Allergy/AdvReac Type Severity Reaction Status Date / Time Penicillins Allergy Severe facial Verified 12/31/23 08:17 swelling Home Medications Medication Instructions Recorded Confirmed Type famotidine 40 mg tablet 40 mg PO DAILY 10/14/23 12/29/23 History levetiracetam 500 mg 500 mg PO DAILY 10/14/23 12/29/23 History tablet,extended release 24 hr (Keppra XR) propranolol 120 mg capsule,24 120 mg PO DAILY 10/14/23 12/29/23 History hr,extended release clindamycin HCl 300 mg capsule 300 mg PO Q8H #21 caps 12/23/23 12/29/23 Rx montelukast 10 mg tablet 10 mg PO DAILY 12/23/23 12/29/23 History lactobacillus combination no.4 3 3,000 mmu cells PO DAILY 12/29/23 12/29/23 History billion cell capsule (Probiotic) multivitamin 1 tablet PO DAILY 12/29/23 12/29/23 History prednisone 20 mg tablet See Rx Instructions .Route .COMPLEX 12/29/23 12/29/23 History Patient hx anesthesia problems: none Family hx anesthesia problems: none Results Review: All pre-operative results and documents have been reviewed as part of the pre-operative evaluation. [facility] Past Medical History Medical History History of sinus tachycardia Morbid obesity Protein C deficiency Surgical History Surgical History History of tonsillectomy Family History Family History Father Cerebrovascular accident Tachycardia Social History Social History Smoking status: Never smoker Alcohol intake: current Alcohol use details: 6 PER YEAR Substance use: never Substance use type: does not use Lack of Transportation: No Lack of Food: Never True Current Housing: I Have Housing Concerned About Future Housing: No Difficulty Paying Gas/Electric Bills: No Difficulty Paying for Meds: No Currently Unemployed: No Education: High School Diploma/GED Difficulty w/ Childcare or Family Care: No Living arrangements: with family Occupation/Education: occupation 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[employer] Gender identity (if verbalized by the patient): Female Sexual Orientation (if Verbalized by the Patient): Straight or Heterosexual Spiritual care concerns: No Anes - Eval Final PreProcedure Day of Procedure 12/31/23 08:17 Patient weight: morbidly obese Heart: regular rate and rhythm Lungs: clear to auscultation Airway: Mallampati scale class II Neurological: alert and oriented Last oral intake: >/= 8 hours ASA classification: III Emergent: no Anesthetic plan: proceed Anesthesia type and monitoring: general ETT and standard monitoring Results Review: All pre-operative results and documents have been reviewed as part of the pre-operative evaluation. Informed Consent: The patient's anesthetic plan and its attendant risks and benefits were discussed with the patient/family/POA. Questions were solicited and answers provided to the satisfaction of the patient/family/POA.
[2023-12-31 08:30] LABS: BEDSIDEPREGUCG Negative
[2023-12-31] MEDS: fentaNYL CITRATE INJ (*CRX) 100 MCG/2 ML VIAL 25 MCG IV PUSH ×2 (10:15→10:17)
--- NOTE | 2023-12-31 10:24 | P.OP_ITS ---
Procedure Note - Detailed Date of Procedure 12/31/23 Pre-op Diagnosis Chronic Tonsillitis, Recurrent Adenoiditis Post-op Diagnosis Same Procedure Performed Revision right tonsillectomy, adenoidectomy Surgeon Leo Starr MD Anesthesia General Indications see above Findings no tonsillar regrowth on the right just remnant tonsil tissue this was easily removed minimal trauma no bleeding adenoid pad looked okay today although the patient has just completed a course of antibiotics. This was removed in the midline minimal bleeding the 1-2 drops of blood were actually from insertion of the red rubber catheters. Description of Procedure Patient identified consent verified preop. Patient brought operating. Time- out performed. General anesthesia induced endotracheal tube secured airway. Patient prepped draped position procedure confirmed 2nd time-out performed. McIvor mouth gag inserted remnant right tonsil tissue removed with needle-tip Bovie the beds were cauterized with bipolar electrocautery both on a setting of 8. No bleeding. Red rubber catheters inserted blood in the nasopharynx from the insertion this was suctioned out adenoid pad look good today although the patient just completed a course of antibiotics. This was removed in the midline really no bleeding no complications no damage to corry pallor septum. Red rubber catheters removed McIvor mouth gag removed. Care the patient given back to Anesthesiology. I performed all dictated portions of procedure no complications. Patient was taken to PACU are hardware had been removed no bleeding. Estimated Blood Loss 0 Drains No Packing No Pathology Yes Complications No immediate complications Condition Stable Disposition PACU [facility] Billing Surgery - Charge Forward: Surgery Billing
[2023-12-31] MEDS: ONDANSETRON INJ 4 MG/2 ML VIAL IV PUSH (11:51)
[2023-12-31] MEDS: IBUPROFEN SUSPENSION 200 MG/10 ML UDC PO (12:16)
== END 2023-12-31 12:40 | disposition home or self-care (01) ==
PROVIDERS: PCP Internal Medicine; Visit Provider Otolaryngology
PROC: (CPT 42821; principal; 2023-12-31 09:45)
DX: J35.03 Chronic tonsillitis and adenoiditis (principal); J03.91 Acute recurrent tonsillitis, unspecified; E66.01 Morbid (severe) obesity due to excess calories; Z68.41 Body mass index [BMI] 40.0-44.9, adult
CPT/HCPCS: 42821; 88304; A9270; J0330; J1100; J2250; J2405; J2704; J3010; J7120

== ENCOUNTER 2024-05-06 09:56 | Emergency (ER) | payer BC, OTHER, SELFPAY ==
[2024-05-06 10:01] VITALS: BP 133/95; PULSE 95; RESP 18; TEMP 36.7; O2SAT 100
--- NOTE | 2024-05-06 10:13 | PC.NURSE ---
Covid culture sent to lab
[2024-05-06] MEDS: ACETAMINOPHEN 325 MG TABLET 650 MG PO (10:17)
[2024-05-06 10:38] LABS: Strep Group A RT-PCR NOT DETECTED (Negative)
[2024-05-06 10:50] LABS: Influenza A QL RT-PCR Negative (Negative); Influenza B QL RT-PCR Negative (Negative); RSV RNA, RT-PCR Negative (Negative); SARS-CoV-2 RNA PCR Negative (Negative)
--- NOTE | 2024-05-06 10:52 | ED_ITS ---
HPI - URI/Sore Throat General Chief Complaint: Upper Respiratory Infection Stated Complaint: UPPER RESP/VOMITING Source: patient Mode of arrival: ambulatory Limitations: no limitations History of Present Illness HPI Narrative: this is a 23-year-old female who presents with a 1 day history of sore throat cough congestion with no shortness of breath no audible wheezing no fever chills no nausea vomiting. MD elicited complaint: fever, cough and sore throat Onset (ago): day(s) Related Data Home Medications ?Medication ?Instructions ?Recorded ?Confirmed ?Last Taken ?Type famotidine 40 mg tablet 40 mg PO DAILY 10/14/23 05/06/24 Unknown History levetiracetam 500 mg 500 mg PO DAILY 10/14/23 05/06/24 12/30/23 21:00 History tablet,extended release 24 hr (Keppra XR) propranolol 120 mg capsule,24 120 mg PO DAILY 10/14/23 05/06/24 12/30/23 21:00 History hr,extended release montelukast 10 mg tablet 10 mg PO DAILY 12/23/23 05/06/24 Unknown History lactobacillus combination no.4 3 3,000 mmu cells PO DAILY 12/29/23 05/06/24 Unknown History billion cell capsule (Probiotic) multivitamin 1 tablet PO DAILY 12/29/23 05/06/24 12/28/23 History Allergies Allergy/AdvReac Type Severity Reaction Status Date / Time Penicillins Allergy Severe facial Verified 12/31/23 08:17 swelling Review of Systems Review of Systems: All systems reviewed & are unremarkable except as noted in HPI and below PMFSH Past Medical History Medical History Morbid obesity History of sinus tachycardia Protein C deficiency Surgical History Surgical History History of tonsillectomy Family History Family History Father Cerebrovascular accident Tachycardia Social History Social History Smoking status: Never smoker Alcohol intake: current Alcohol use details: 6 PER YEAR Substance use: never Substance use type: does not use Lack of Transportation: No Lack of Food: Never True Current Housing: I Have Housing Concerned About Future Housing: No Difficulty Paying Gas/Electric Bills: No Difficulty Paying for Meds: No Currently Unemployed: No Education: High School Diploma/GED Difficulty w/ Childcare or Family Care: No Living arrangements: with family Occupation/Education: occupation 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[employer] Gender identity (if verbalized by the patient): Female Sexual Orientation (if Verbalized by the Patient): Straight or Heterosexual Spiritual care concerns: No Exam Const: General: healthy appearing and no acute distress Nutritional Appearance: well nourished Orientation/consciousness: patient oriented x3 Limitations: no limitations HENMT: Head: normal to inspection Eyes: Conjunctivae: conjunctivae normal Pupils: Equal, round and reactive pupils present EOM: EOMs intact bilaterally Neck: Neck: normal visual inspection, no lymphadenopathy and no meningeal signs Chest: Chest palpation & inspection: normal inspection of the chest Resp: Effort & Inspection: normal respiratory effort Auscultation: clear to auscultation bilaterally Cardio: Rate: regular rate Rhythm: regular rhythm GI: GI Palp: Yes Soft to palpation Auscultation: normal bowel sounds : General: Yes bladder normal to palpation Skin: General skin exam: normal color Rashes: no rashes Neuro: General: patient oriented x3 and moves all extremities Course Course Emergency Course: Patient had rapid strep COVID RSV and influenza are negative advise and including fluids take Tylenol or Motrin and get plenty of rest follow primary if symptoms persist. Vital Signs Vital signs: Vital Signs Temperature 36.7 C 05/06/24 10:01 Pulse Rate 95 05/06/24 10:01 Respiratory Rate 18 05/06/24 10:01 Blood Pressure 133/95 H 05/06/24 10:01 Pulse Oximetry 100 05/06/24 10:01 Oxygen Delivery Room Air 05/06/24 10:01 Temperature 36.7 C 05/06/24 10:01 Pulse Rate 95 05/06/24 10:01 Respiratory Rate 18 05/06/24 10:01 Blood Pressure 133/95 H 05/06/24 10:01 Pulse Oximetry 100 05/06/24 10:01 Oxygen Delivery Room Air 05/06/24 10:01 MDM - URI/Sore Throat Lab Data Labs: Lab Results 05/06/24 Range/Units 10:11 Influenza A (RT-PCR) Negative (Negative) Influenza B (RT-PCR) Negative (Negative) RSV (RT-PCR) Negative (Negative) SARS-CoV-2 RNA (RT-PCR) Negative (Negative) Group A Strep (PCR) Not detected (Negative) Critical Care Time Critical Care Time Critical Care Time: No Discharge Plan Discharge Clinical Impression: Viral infection Patient Disposition: Home, Self-Care Condition: Stable Instructions: Antibiotic Form, Viral Syndrome (ED) Additional Instructions: Advise drink plenty of fluids Tylenol or Motrin and follow her primary if symptoms persist or worsen. Patient Language: Amharic Prescriptions: No Action levetiracetam [Keppra XR] 500 mg tablet extended release 24 hr 500 mg PO DAILY famotidine 40 mg tablet 40 mg PO DAILY propranolol 120 mg capsule,extended release 24hr 120 mg PO DAILY montelukast 10 mg tablet 10 mg PO DAILY multivitamin Tablet 1 tablet PO DAILY Probiotic 3 billion cell Capsule 3,000 mmu cells PO DAILY Rx Instructions: administer with a meal Follow-up/Referrals: Dominik Wilde MD [Primary Care Provider] - Time of Disposition: 10:55
[2024-05-06 11:04] VITALS: BP 137/83; PULSE 84; RESP 16; TEMP 37.1; O2SAT 97
--- OUTSIDE RECORDS SUMMARY | 2024-05-13 13:02 | XMS_ITS | Clinical Summary ---
Author Organization [facility] Address [address] [place] [address]. [place], [place] [address] [place] [address] Care Team Providers Care Elementary Educator Name Role Phone Unavailable Primary Care Provider Unavailabl e Social History Tobacco Use Types Packs/Day Years Used Date Smoking Tobacco: Never Assessed Comments Unknown Sex and Gender Information Value Date Recorded Sex Assigned at Not on file Legal Sex Female 8:14 PM CDT Gender Identity Not on file Sexual Orientation Not on file Plan of Treatment Health Maintenance Due Date Last Done Comments Cervical Cancer Screening Pa p Smear (Age 21 to 29) Every 3 Years 2001 Cervical Cancer Screening 2001 Annual Physical 2004 HPV Vaccines (1 - 3-dose series) 2016 Hepatitis C 11/02/2019 DTaP, Tdap and Td Vaccines ( 1 - Tdap) 2020 Hepatitis B Vaccines (1 of 3 - 19+ 3-dose series) 2020 COVID-19 Vaccine ( - 2023-2 5 season) 2024 Influenza Adult (#1) 2024 Meningococcal Vaccine Aged Out No mojgan nalini eligible based on patient's age to complete this topic Pneumococcal Vaccine: Pediat rics (0 to 5 Years) and At-Risk Patients (6 to 64 Years) Aged Out No longer eligible b ased on patient's age to complete this topic RSV Immunizations Under 20 Months Aged Out No longer eligible based on patient's age to complete this topic
--- OUTSIDE RECORDS SUMMARY | 2024-05-13 13:02 | XMS_ITS | Encounter Summary ---
Author Organization [facility] Address [address] [place] [address]. [place] [address] [place] [address] Care Team Providers Care Shoe Trimmer Name Role Phone Unavailable Primary Care Provider Unavailabl e Encounter Details Date Type Department Care Team (Late st Contact Info) Description 01/13/2013 Abstract [facility] [place] [address] Social History Tobacco Use Types Packs/Day Years Used Date Smoking Tobacco: Never Assessed Comments Unknown Sex and Gender Information Value Date Recorded Sex Assigned at Not on file Legal Sex Female 8:14 PM CDT Gender Identity Not on file Sexual Orientation Not on file documented as of this encounter Plan of Treatment Not on file documented as of this encounter Visit Diagnoses Diagnosis Low back pain Lumbago documented in this encounter
--- OUTSIDE RECORDS SUMMARY | 2024-05-13 13:03 | XMS_ITS | Encounter Summary ---
Author Organization [facility] Address [address] [place] [address]. [place] [address] [place] [address] Care Team Providers Care Market Research Assistant Name Role Phone Unavailable Primary Care Provider Unavailabl e Encounter Details Date Type Department Care Team (Late st Contact Info) Description 11/16/2005 Abstract [facility] Room [address] [place], [place] [id number] Roberth Awan MD [address] [place] [id number] Social History Tobacco Use Types Packs/Day Years Used Date Smoking Tobacco: Never Assessed Comments Unknown Sex and Gender Information Value Date Recorded Sex Assigned at Not on file Legal Sex Female 8:14 PM CDT Gender Identity Not on file Sexual Orientation Not on file documented as of this encounter Plan of Treatment Not on file documented as of this encounter Visit Diagnoses Not on filedocumented in this encounter
--- OUTSIDE RECORDS SUMMARY | 2024-05-13 13:03 | XMS_ITS | Encounter Summary ---
Author Organization [facility] Address [address] [place] [address]. [place], [place] [id number] [place] [address] Care Team Providers Care Set Up Mechanic Automatic Line Name Role Phone Unavailable Primary Care Provider Unavailabl e Encounter Details Date Type Department Care Team (Late st Contact Info) Description 11/20/2011 Abstract [facility] [address] [facility] [place] [address] Social History Tobacco Use Types Packs/Day Years Used Date Smoking Tobacco: Never Assessed Comments Unknown Sex and Gender Information Value Date Recorded Sex Assigned at Not on file Legal Sex Female 8:14 PM CDT Gender Identity Not on file Sexual Orientation Not on file documented as of this encounter Plan of Treatment Not on file documented as of this encounter Visit Diagnoses Diagnosis Infective otitis externa Infective otitis externa, unspecified documented in this encounter
--- OUTSIDE RECORDS SUMMARY | 2024-05-13 13:03 | XMS_ITS | Data Portability ---
Author Organization [facility], [address] [facility] [place] ([place]) Address [address] [place] [address] Care Team Providers Care Buck Presser Name Role Phone DARRIUS HOLLINGSWORTH Primary Care Provider [phone] Assessment No assessment recorded. Plan of Treatment Reminders Order Date Submit Date Provider Last Modified By Organization Details Last Modified Time Details Appointments None record ed. Lab None record ed. Referral None record ed. Procedures None record ed. Surgeries None record ed. Imaging None record ed. Medication Orders None record ed. Patient TargetsNo targets recorded. Patient InstructionsNo instructions recorded. Reason for Referral None Reported. Problems Name Problem SNOMED Code Status Onset Date Resolution Date Notes Provider Name and Address Organization Details Recorded Time Seizure disorder 562665713 Active 024 Asiya Soren [facility] 4 11:56:54 Staring 567940807 Active 024 Faith Carty MD [address] [place] [address], [phone] , [facility] 4 15:08:18 Problem Notes None recorded. Procedures Surgical History Date Name Laterality Status Provider Name and Address Organization Details Recorded Time 4 [place] EEG Procedure completed Faith Carty MD [address] [place] [address], [phone], [facility] 12/02/2023 15:08:06 Imaging Results None recorded. Procedure Notes None recorded. Medical Equipment None Reported. Allergies Allergen ID Allergen Name Allergen Category Reaction Reaction Severity Criticality Documentation Date Start Date Code Code System Note Provider Name and Address Organization Details Recorded Time [id number] [id number] 2824e Medicinal product containin g penicilli n and acting as antibacte rial agent (product) medicatio n Not available Not available Not available 06/14/20232019 79922 05 SNOMED Not Available Not Available Not Available Medications Name Sig Start Date Stop Date Status Note LastModified by Organization Details LastModified Time chlorzoxazone 500 mg tablet active Not Available Not Availabl e Not Available Keppra 1,000 mg tablet Take 1 tablet every 12 hours by oral route. active Not Available Not Available No t Available levetiracetam ER 1,000 mg tablet,extended release 24 hr Take 1 tablet every day by oral route at bedtime for 30 days. 2023 active Not Available Not Available Not Avai lable Vitals None Recorded Social History None recorded. Functional Status None recorded. Mental Status None recorded. Family History Nothing Reported. Medical History No medical history recorded. Gynecological HistoryNo gynecological history recorded. Obstetrics History GPAL:G 0 P 0 0 0 0 Past Encounters Encounter ID Performer Location Encounter Start Date Encounter Closed Date Diagnosis/Indication Diagnosis SNOMED-CT Code Diagnosis ICD10 Code [id number] Faith Carty MD [address] [facility] ([place]) [address] [place] [address] [address] 10/19/2023 13:57:03 10/20/2023 11:42:09 Seizure disorder 138007393 G40.909 Staring 778755654 H51.8 Health Concerns Section Related Observation LastModified by Organization Detai ls LastModified Time None Recorded Concern Status LastModified by Organization Details LastModified Time None Recorded Advance Directives Directive None Recorded Payers Encounter Date Sequence Insurance Name Policy Number Policy Mcintosh Covered Member ID Mcintosh Member ID Guarantor Name 10/19/2023 2 [facility] - DOS ON OR AFTER 20 (MEDICAID REPLACEMENT - HMO) Karla Hackett [id number] Karla Hackett 10/19/2023 1 [place] [id number] Karla Hackett [id number] Karla Hackett OBGyn Episode No OBEpisode recorded.
--- OUTSIDE RECORDS SUMMARY | 2024-05-13 13:03 | XMS_ITS | Encounter Summary ---
Author Organization [facility] Address [address] [place] [address]. [place], [place] [address] [place] [address] Care Team Providers Care Lead Data Architect Name Role Phone Unavailable Primary Care Provider Unavailabl e Encounter Details Date Type Department Care Team (Late st Contact Info) Description 03/19/2006 Abstract [facility] CONVERSION [address] [place] [address] , Generic Conversion, Social History Tobacco Use Types Packs/Day Years [...]
--- OUTSIDE RECORDS SUMMARY | 2024-05-13 13:04 | XMS_ITS | Data Portability ---
Author Organization [facility] [place] Address [address] [place] [address] [address] Care Team Providers Care Vp Cardiovascular Name Role Phone DARRIUS RIZZO Primary Care Provider [phone] Assessment Encounter Date Assessment Date Assessment LastModified by Organization Details LastModified Time 04/06/2023 04/06/2023 Annual gynecological exam performed. Patient will come back in a year unless there are new symptoms. Not available 04/06/2023 16:45:29 06/08/2023 06/08/2023 will wait for tests to return. Exam inconclusive [email or web address] Not available 06/08/2023 17:22:37 Plan of Treatment Reminders Order Date Submit Date Provider Last Modified By Organization Details Last Modified Time Details Appointments None recorded. Lab urinalysis , dipstick 2023 024 [email or web address] [place], [address], [place], [address], 16:57:33 Referral None recorded. Procedures None recorded. Surgeries None recorded. Imaging None recorded. Medication Orders None recorded. Patient TargetsNo targets recorded. Patient InstructionsNo instructions recorded. Reason for Referral None Reported. Results Created Date Observation Date Name Description Value Unit Range Abnormal Flag Note LastModifiedBy Organization Detail LastModifiedTime 04/06/2004/06/2023 IMAGE GUIDE D PAP, REFLE X HPV IF ASCUS ONLY image guided Pap, reflex HPV ASCUS only SEE RESULT S BELOW CASE REPOR T: Cytol ogy Gynec ologi florin Repor t Case: [id number] Autho jeffry shi Provi christiano: Lesvia Siddiqi NP Colle cted: 04/06 1643 Order ing Locat ion: [place] [facility] Recei sinai: 04/07 1038 First Scree n: Rosemarie Parkinson , CT Rescr een: Bridget Haro, CT Speci men: Scree roman Pap - Image d, Cervi x STATE MENT OF ADEQU ACY: Satis facto ry for evalu ation Trans forma tion zone compo nent prese nt FINAL DIAGN OSIS: Negat ana maría for Intra epith elial Lesio n or Bonnie alvares (NIL) . Funga l organ isms morph ologi skyler consi stent with Jocelyn da spp. Elect gabbie harper batsheva d by Bridget Haro, CT on 04/13 at 9:45 AM ----- ----- ----- ----- ----- ----- ----- ----- ----- ----- ----- ----- ----- ----- ----- ----- ----- ---- COMME NT: This speci men was revie wed by a Cytot echno logis t and/o r Patho logis t (as indic ated in this repor t) after evalu ation using the Thinp rep Imagi ng Syste m. CLINI FLORIN INFOR MATIO N: Menst rual Statu s: LMP (if appli cable ): Clini florin Histo ry/Pr eviou s Pap: Type of Neopl jeff (if appli cable ): Signi fican t Clini florin Findi ngs: Other Histo ry: Hormo tito (if appli cable ): PAP EDUCA SCAR L NOTE: The Pap Test is a scree roman test with an inher ent false negat ana maría rate. Liqui d-bas ed sampl ing may decre ase, but will not elimi shad, false negat ana maría resul ts. A negat ana maría resul t does not precl ude the prese nce and/o r devel opmen t of disea se, since the prese nce of abnor mal cells in the sampl e depen ds on the locat ion of the lesio n and sampl ing techn ique. Sary nued regul ar scree roman is the best metho d of cance r preve ntion . If repor johanna cytol ogic findi ng do not corre late with physi florin and/o r histo rical findi ngs, furth er inves tigat ion is recom aleja d, as clini skyler franco nted. Not Available [facility] (Lab) [address], [place], [address], 04/13/2023 10:48:58 04/06/20 23 04/06/2023 TRICH OMONA S VAGIN PRISCA (RRNA ) trichomonas vaginalis ribosomal RNA (rrna) Negati ve negati ve Not Available [facility] (Lab) [address], [place], [address], 04/13/2023 10:48:59 04/06/20 23 04/06/2023 CT/GC (OMI) , THINP REP VIAL chlamydia trachomatis, PCR Negati ve negati ve Not Available [facility] (Lab) [address], [place], [address], 04/13/2023 10:48:59 04/06/20 23 04/06/2023 CT/GC (OMI) , THINP REP VIAL neisseria gonorrhoeae, PCR Negati ve negati ve Not Available [facility] (Lab) [address], [place], [address], 04/13/2023 10:48:59 06/08/19 24 06/08/2023 VAGIN ITIS/ VAGIN OSIS, DNA PROBE hardeep sp. detection, direct probe Negati ve negati ve Not Available [facility] (Lab) [address], [place], [address], 06/09/2023 12:53:00 06/08/19 24 06/08/2023 VAGIN ITIS/ VAGIN OSIS, DNA PROBE gardnerella vag. detection, direct probe Negati ve negati ve Not Available [facility] (Lab) [address], [place], [address], 06/09/2023 12:53:00 06/08/19 24 06/08/2023 VAGIN ITIS/ VAGIN OSIS, DNA PROBE trichomonas vag. detection, direct probe Negati ve negati ve Not Available [facility] (Lab) [address], [place], [address], 06/09/2023 12:53:00 06/08/19 24 06/08/2023 urina lysis , dipst ick pH 5 Not Available [place] [address], [place], [address], 06/08/2023 16:57:16 06/08/19 24 06/08/2023 urina lysis , dipst ick Specific [place] 1.010 Not Available [facility] [address], [place], [address], 06/08/2023 16:57:16 Result Notes None recorded. Procedures Surgical History Date Name Laterality Status Provider Name and Address Organization Details Recorded Time 04/06/20 Date of Last Pap Smear completed Carmen Thibodeaux [facility] 06/08/2023 16:42:19 Tonsillectomy completed [facility] 04/06/2023 16:46:04 Imaging Results None recorded. Procedure Notes None recorded. Medical Equipment None Reported. Allergies Allergen ID Allergen Name Allergen Category Reaction Reaction Severity Criticality Documentation Date Start Date Code Code System Note Provider Name and Address Organization Details Recorded Time 83518 Penicilli n Not available swelling moderate Not available 04/06/2023 07055 RxNorm [facility] 16:45:42 Medications Name Sig Start Date Stop Date Status Note LastModified by Organization Details LastModified Time prednisone 10 mg tablet PLEASE SEE ATTACHED FOR DETAILED DIRECTION S 04/06 completed Not Available Not Available Not Available azithromyci n 250 mg tablet TAKE 1 TABLET BY MOUTH DAILY FOR 3 DAYS 04/06 completed Not Available Not Available Not Available fluconazole 150 mg tablet TAKE 1 TABLET BY MOUTH AND ANOTHER IN 48 HOURS 06/08 completed Not Available Not Available Not Available sumatriptan 100 mg tablet TAKE 1 TABLET BY MOUTH ONCE active Not Available Not Available No t Available famotidine 40 mg tablet TAKE 1 TABLET BY MOUTH EVERYDAY AT BEDTIME active Not Available Not Available No t Available topiramate 25 mg tablet TAKE 3 TABLETS BY MOUTH TWICE DAILY active Not Available Not Available No t Available ciprofloxac in 250 mg tablet TAKE 1 TABLET BY MOUTH EVERY 12 HOURS FOR 3 DAYS 04/06 completed Not Available Not Available Not Available prochlorper azine maleate 10 mg tablet PLEASE SEE ATTACHED FOR DETAILED DIRECTION S 04/06 completed Not Available Not Available Not Available triamcinolo ne acetonide 0.1 % topical cream APPLY THIN COAT TO AFFECTED AREA TWICE A DAY 04/06 completed Not Available Not Available Not Available benzonatate 100 mg capsule TAKE 1 TABLET BY MOUTH THREE TIMES A DAY NEEDED FOR COUGH 06/08 completed Not Available Not Available Not Available montelukast 10 mg tablet TAKE 1 TABLET BY MOUTH EVERY DAY IN THE EVENING active Not Available Not Available No t Available propranolol ER 120 mg capsule,24 hr,extended release TAKE 1 CAPSULE BY MOUTH EVERY DAY active Not Available Not Available No t Available methylpredn isolone 4 mg tablets in a dose pack TAKE 6 TABLETS ON DAY 1 DIRECTED ON PACKAGE AND DECREASE BY 1 TAB EACH DAY FOR A TOTAL OF 6 DAYS 06/08 completed Not Available Not Available Not Available albuterol sulfate HFA 90 mcg/actuati on aerosol inhaler TAKE 2 PUFFS BY MOUTH EVERY 4 TO 6 HOURS NEEDED active Not Available Not Available No t Available ondansetron 4 mg disintegrat ing tablet PLEASE SEE ATTACHED FOR DETAILED DIRECTION S 04/06 completed Not Available Not Available Not Available cefdinir 300 mg capsule TAKE 1 CAPSULE BY MOUTH EVERY 12 HOURS 06/08 completed Not Available Not Available Not Available doxycycline hyclate 100 mg tablet TAKE 1 TABLET BY MOUTH TWICE A DAY 06/08 completed Not Available Not Available Not Available atenolol 50 mg tablet TAKE 1 TABLET BY MOUTH EVERY DAY 06/08 completed Not Available Not Available Not Available naproxen 500 mg tablet PLEASE SEE ATTACHED FOR DETAILED DIRECTION S 04/06 completed Not Available Not Available Not Available escitalopra m 10 mg tablet active Not Available Not Available Not Available escitalopra m 5 mg tablet TAKE 1 TABLET BY MOUTH EVERY DAY 06/08 completed Not Available Not Available Not Available levetiracet am 1,000 mg tablet TAKE 1 TABLET BY MOUTH TWICE A DAY active Not Available Not Available No t Available ferrous gluconate 324 mg (38 mg iron) tablet TAKE 1 TABLET BY MOUTH EVERY DAY 04/06 completed Not Available Not Available Not Available cholecalcif eliecer (vitamin D3) 50 mcg (2,000 unit) capsule TAKE 1 CAPSULE BY MOUTH EVERY DAY 04/06 completed Not Available Not Available Not Available Paxlovid 300 mg (150 mg x 2)-100 mg tablets in a dose pack TAKE 3 TABLETS BY ORAL ROUTE 2 TIMES PER DAY PER PACKAGE DIRECTION S FOR 5 DAYS 04/06 completed Not Available Not Available Not Available Vitals Date Recorded Body weight Body mass index (BMI) Body height Systolic blood pressure Diastolic blood pressure Provider Name and Address Organization Details Last Updated DateTime 04/06/2023 741155.7 6 g 43.3 kg/m2 167.64 cm 111 mm[Hg] 72 mm[Hg] Laureen Ribeiro [facility] 3 16:48:06 Date Recorded Body height Body mass index (BMI) Body weight Systolic blood pressure Diastolic blood pressure Provider Name and Address Organization Details Last Updated DateTime 06/08/2023 167.64 cm 43.3 kg/m2 350533.7 6 g 120 mm[Hg] 80 mm[Hg] Carmen Thibodeaux [facility] 4 16:45:07 Social History Question Answer Notes LastModified by Organizat ion Details LastModified Time Tobacco Smoking Status Never Smoker Laureen Quintin [facility] 04/06/2023 16:53:13 What Is Your Level Of Alcohol Consumption? Occasional Information not available 04/06/2023 How Many Years Have You Consumed Alcohol? 1 Information not available 04/06/2023 Are You Blind Or Do You Have Difficulty Seeing? No Information not available 04/06/2023 What Is Your Level Of Caffeine Consumption? Moderate Information not available 04/06/2023 How Much Tobacco Do You Chew? None Information not available 04/06/2023 In The 14 Days Before Symptom Onset, Have You Had Close Contact With A Laboratory-confir med COVID-19 While That Case Was Ill? No Information not available 04/06/2023 In The 14 Days Before Symptom Onset, Have You Had Close Contact With A Person Who Is Under Investigation For COVID-19 While That Person Was Ill? No Information not available 04/06/2023 Have You Been To An Area Known To Be High Risk For COVID-19? No [email or web address] Information not available 06/08/2023 Are You Deaf Or Do You Have Serious Difficulty Hearing? No Information not available 04/06/2023 What Type Of Diet Are You Following? REGULAR Information not available 04/06/2023 What Is The Highest Grade Or Level Of School You Have Completed Or The Highest Degree You Have Received? 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 No Information not available 04/06/2023 Do You Use Protection During Sex? Always Information not available 04/06/2023 Do You Use Your Seat Belt Or Car Seat Routinely? Yes Information not available 04/06/2023 Do You Have Smoke And Carbon Monoxide Detectors In Your Home? Yes Information not available 04/06/2023 How Much Tobacco Do You Smoke? No Information not available 04/06/2023 Do You Feel Stressed (tense, Restless, Nervous, Or Anxious, Or Unable To Sleep At Night)? [id number] Information not available 04/06/2023 Do You Use Any Illicit Or Recreational Drugs? No Information not available 04/06/2023 Do You Use Sunscreen Routinely? No Information not available 04/06/2023 Have You Used IV Drugs? No Information not available 04/06/2023 Sex: Unknown Functional Status Question Answer Note LastModified by Organizat ion Details LastModified Time Do you have difficulty walking or climbing stairs? No Information not available 04/06/2023 Are you able to walk? YESWOREST Information not available 04/06/2023 Are you able to care for yourself? Yes Information not available 04/06/2023 Do you have difficulty dressing or bathing? No Information not available 04/06/2023 What is your exercise level? None Information not available 04/06/2023 Mental Status None recorded. Family History Relationship Description Onset Age of this Age Resolved Age Notes LastModified by Organization Details LastModified Time Maternal Uncle Substance abuse Not available 2022 16:45:46 Father Blood coagulation disorder Not available 2022 16:45:46 Father Substance abuse Not available 2022 16:45:46 Mother Disorder of thyroid gland Not available 2022 16:45:46 Maternal Grandmother Disorder of thyroid gland Not available 2022 16:45:46 Maternal Grandmother Anxiety disorder Not available 2022 16:45:46 Maternal Grandmother Depressive disorder Not available 2022 16:45:46 Maternal Grandmother Substance abuse Not available 2022 16:45:46 Maternal Grandfather Substance abuse Not available 2022 16:45:46 Paternal Grandfather Blood coagulation disorder Not available 2022 16:45:46 Medical History Condition Response Anxiety Disorder Y Heart Problems Y Other Y Hematologic disorders Y Neurologic/Epilepsy Y Gynecological History Statement/Question Response Flow Moderate Date of LMP 05/16/2023 Was last menstrual period normal Y STIs/STDs N HPV Vaccine Y Duration of Flow (days) 4 Current Control Method Condoms Frequency of Cycle (Q days) 29 Sexually Active? Y Menses Monthly Y Age of first menstrual cycle 13 Date of Last Pap Smear 04/06/2023 Sexual Problems? N Desired Control Method Unknown LMP Definite N Obstetrics History GPAL:G 0 P 0 0 0 0 Past Encounters Encounter ID Performer Location Encounter Start Date Encounter Closed Date Diagnosis/Indication Diagnosis SNOMED-CT Code Diagnosis ICD10 Code [id number] Lesvia Siddiqi [facility] [address] [address] 04/06/2023 16:29:43 04/07/2023 09:49:52 Gynecologic examination 56474003 Z01.419 Z11.3 Z11.8 [facility] 845088703 Z30.9 [id number] Stacia Kee [facility] [address] [address] 06/08/2023 16:36:59 06/09/2023 15:55:40 Urinary symptoms 326921825 R39.9 Vaginitis 63875176 N76.0 Health Concerns Section Related Observation LastModified by Organization Detai ls LastModified Time None Recorded Concern Status LastModified by Organization Details LastModified Time None Recorded Advance Directives Directive None Recorded Payers Encounter Date Sequence Insurance Name Policy Number Policy Mcintosh Covered Member ID Mcintosh Member ID Guarantor Name 04/06/2023 1 [employer] [id number] Roberto Robert [id number] Karla Hackett 04/06/2023 2 [facility] ON OR AFTER 11/14/20 (MEDICAID REPLACEMENT - HMO) Karla Hackett [id number] Karla Hackett 06/08/2023 1 [place] [id number] Roberto Robert [id number] Karla Hackett 06/08/2023 2 [facility] ON OR AFTER 11/14/20 (MEDICAID REPLACEMENT - HMO) Karla Hackett [id number] Karla Hackett Notes Date Note Type Note Provider Name and Address Organization Details Recorded Time 04/06/2023 text/html Annual GYNReport ed bypatient.Menstrua l cycle:Normal menses Urinary symptoms:No hematuria; No incontinence Vulva:No genital lesion Vagina:Normal vaginal discharge Breast:No breast pain; No breast lump; No nipple discharge Current Contraception:Cond oms Sexual complaints:No sexual complaints; No pain during intercourse; Normal libido Menopausal Symptoms:No menopausal symptoms; Normal vaginal lubrication Psychological symptoms:No depression; No anxiety; No PMDD Preventive measures:Encourage self breast examination; Encourage regular exercise; Encourage no tobacco use; Encourage regular mammograms starting age 40Notes:no pap hxprotein C deficiency GUSTAVO Damon [address], [place], [address], [facility] 04/07/2023 09:37:57 06/08/2023 text/html Karla is a 22y o reproductive age female who is here today for vaginal odor. She expresses that this will be a random issue.No other sx's other than some dysuria. Neg pain of abd/pelvis/flankNe g urinary sx's except dysuriaNeg GI sx'sNeg N/V/F/C/DNeg Vag d/c,, irritation, itching GUSTAVO Graham- [address], [place], [address], [facility] 06/09/2023 14:46:46 OBGyn Episode No OBEpisode recorded.
--- OUTSIDE RECORDS SUMMARY | 2024-05-13 13:05 | XMS_ITS | Patient Health Record ---
Author Organization [facility] Address [address] [place] [address] Care Team Providers Care Electrical Equipment Assembler Name Role Phone Mustapha Hernández Unavailable [phone] Alina Riveraa Unavailable [phone] Reason For Referral No Information Problems Problem Type SNOMED Code ICD Code Onset Dates Problem Status W/U Status Risk Notes Problem Chronic allergic conjunctivitis (29227521) Other chronic allergic conjunctivitis (H10.45) Active confirmed Problem Allergic rhinitis caused by pollen (disorder) (02447056) Allergic rhinitis due to pollen (J30.1) Active confirmed Problem Allergic rhinitis (50330958) Other allergic rhinitis (J30.89) Active confirmed Problem Chronic rhinitis (95443591) Chronic rhinitis (J31.0) Active confirmed Problem Uncomplicated mild persistent asthma (954290030) Mild persistent asthma, uncomplicated (J45.30) Active confirmed Problem Uncomplicated moderate persistent asthma (890013535) Moderate persistent asthma, uncomplicated (J45.40) Active confirmed Problem Uncomplicated severe persistent asthma (361892952) Severe persistent asthma, uncomplicated (J45.50) Active confirmed Problem Allergic rhinitis caused by animal hair and dander (073797413975731) Allergic rhinitis due to animal (cat) (dog) hair and dander (J30.81) Active confirmed Plan Of Treatment No Information Insurance Providers Payer Name Payer Address Payer Phone Subscriber Number Group Number Insured Name Patient Relationship to Insured Coverage Start Date Coverage End Date [facility] [address] [place] [address] [phone] [id number] Karla Hackett Self - patient is the insured 9
--- OUTSIDE RECORDS SUMMARY | 2024-05-13 13:05 | XMS_ITS ---
Author Organization [facility] Address [address] [place] [address] Care Team Providers Care Technical Product Manager Name Role Phone Britt Rivera Unavailable [phone] REASON FOR VISIT Chronic upper airway symptoms concerning for uncontrolled atopic disease, Chronic lower airways symptoms concerning for possible asthma Encounters Encounter Location Date Provider Diagnosis [facility] [address] [facility] [address] [place] [address] 12/28/2023 Britt Rivera Allergic rhinitis du e [...] Evaluation and Management Progress Notes * Marifer HACKETTaDOB: [birth year] (23 yo F)Acc No.[id number]:12/28/2023 Progress Notes Patient:?Karla HACKETT Provider:?Britt Rivera DNP CLASSIFIED ADVERTISING SUPERVISOR-C :2000???Age:23 Y???Sex:Female D ate:12/28/2023 Address:[address] [place], [place] [id number] Subjective: * Chief Complaints: * ???1. Chronic upper airway s ymptoms concerning for uncontrolled atopic disease. 2. Chronic lower airways symptoms concerning for possible asthma. * HPI: ???*Introduction:?I had the pleasure of seeing?x.? * ROS:?ALLERGY:?Positive?per the HPI and history, otherwise unremarkable.?SPECIAL SENSES:?Positve for?none.?CONSTITUTIONAL:?Positive for?none.?ENT:?Positive?per the HPI and history, otherwise unremarkable.?RESPIRATORY:?Positive?per the HPI and history, otherwise unremakable.?OPHTHALMOLOGY:?Positive for?per the HPI and history, otherwise unremarkable.?ENDOCRINOLOGY:?Positive for?none.?CARDIOLOGY:?Positive for?none.?GASTROENTEROLOGY:?Positive for?none.?UROLOGY:?Positive for?none.?DERMATOLOGY:?Positive for?per the HPI and history, otherwise unremakable.?NEUROLOGY:?Positive for?none.?HEMATOLOGY/LYMPH:?Positive for?none.?MUSCULOSKELETAL:?Positive for?none.?PSYCHOLOGY:?Positive for?none.?All other review of systems per the HPI and history, otherwise unremarkable. * Medical History:? Objective: * Vitals:? * Examination: ???General examination: ?General appearance:?pleasant, well-developed, well-nourished.?HEENT:?pupils equal, round, and reactive to light and accommodation, conjunctiva are injected bilaterally, no tenderness to palpation of the sinuses, TM's without evidence of acute infection, turbinates 2+ swollen and pale inferiorly bilaterally, clear rhinorrhea is present, no polyps noted, no septal perforation, posterior oropharynx is erythematous and cobblestoning is present, erythema on pharyngeal wall, no exudates, no tongue swelling, and uvula is midline.?Oral cavity:?normal, no lesions.?Neck, thyroid :?supple, non-tender, no anterior cervical lymphadenopathy.?Breasts :?not performed.?Heart:?RRR, S1-S2, no murmurs, no rubs, no gallops.?Lungs:?clear to auscultation and percussion in all lung gaines, no wheezes or crackles.?Abdomen:?soft, NT/ND, normal active bowel sounds.?Neurologic exam:?unremarkable.?Skin:?normal, no rash, dermatographism, urticaria, angioedema.?Peripheral pulses:?normal (2+) bilaterally.?Back:?normal.?Extremities:?normal ROM, no clubbing, no cyanosis, no edema.?Genitalia:?not performed.? Assessment: * Assessment: 1.?Allergic rhinitis due to pollen - J30.1 (Primary)???2.?Allergic rhinitis due to animal (cat) (dog) hair and dander - J30.81???3.?Other allergic rhinitis - J30.89???4.?Other chronic allergic conjunctivitis - H10.45???5.?Hypertrophy of nasal turbinates - J34.3???6.?Chronic rhinitis - J31.0???7.?Moderate persistent asthma, uncomplicated - J45.40???8.?Mild persistent asthma, uncomplicated - J45.30???9.?Severe persistent asthma, uncomplicated - J45.50??? Plan: * Treatment: 2.?Allergic rhinitis due to animal (cat) (dog) hair and dander? Notes: Follow allergen avoidance, meds and consider SCIT as an adjunctive treatment to current regimen?? 3.?Other allergic rhinitis? Notes: Follow allergen avoidance, meds and consider SCIT as an adjunctive treatment to current regimen?? 4.?Other chronic allergic co njunctivitis? Notes: Given ocular signs and symptoms I encouraged allergy avoidance measures and meds as above. If symptoms persist, consider adding additional medications including intraocular antihistamine/mast cell stabilizer, PRN and consider SCIT as an adjunctive measure?? * Procedure Codes:?00771 PRICK TESTS, Units: 72.00 , 02933 INTRADERMAL TESTS, 03239 MEASURE BLOOD OXYGEN LEVEL, 32629 SELF-MGMT EDUC & TRAIN, 1 PT, S9441 ASTHMA ED NON-MD PROV PER SESSION, 97057 PT-FOCUSED TH RISK ASSMT, G8427 DOC MEDS VERIFIED W/PT OR RE * Preventive Medicine:? ??Counseling:?Medication instruction:?Watch for side effects of prescribed medications, Nasal steroid/antihistamine instruction: avoid septum.?Education:?GENERAL EDUCATION: Our staff spent an additional 30 minutes in direct contact with the patient educating them on their current diagnoses and proper treatment and prevention of symptoms and the proper use of medications.?Education 2:?ARC EDUCATION: Our staff discussed the appropriate allergen [...] self-injectable epinephrine and seek urgent or emergent care.?Patient education material?sent to portal??Yes * Follow Up:?4 Weeks (Reason: Evaluation and Management) * Billing Information: * Visit Code:? * Procedure Codes:? 22114 PRICK TESTS. Units: 72.00. 68631 INTRADERMAL TESTS. 45745 MEASURE BLOOD OXYGEN LEVEL. 48524 SELF-MGMT EDUC & TRAIN, 1 PT. S9441 ASTHMA ED NON-MD PROV PER SESSION. 96304 PT-FOCUSED HLTH RISK ASSMT. G8427 DOC MEDS VERIFIED W/PT OR RE. * Electronic signature of Britt Rivera DNP, FNP-C on 05/13/2024 at 01:04 PM RESIDENTIAL LEASING MANAGER Sign off status: Pending * Provider:?MADELAINE Caputo Thiago e:?12/28/2023 Generated for Malou anderosn/Navid/Tobiitting on:?05/13/2024 01:04 PM RESIDENTIAL LEASING MANAGER History and Physical Notes * HPI (History of Present Illness) Category Sub-Category Detail Notes Category Not es *Introduction I had the pleasure of seeing x Examination Category Sub-Category Detail Notes Category [...]
--- OUTSIDE RECORDS SUMMARY | 2024-05-13 13:05 | XMS_ITS ---
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 * Medical History:? Objective: * Vitals:? Assessment: Plan: * Treatment: * Billing Information: * Visit Code:? * Procedure Codes:? * Electronic signature of Britt Rivera DNP, FNP-C on 05/13/2024 at 01:04 PM LASER BEAM COLOR SCANNER OPERATOR Sign off status: Pending * Provider:?MADELAINE Caputo Thiago e:?02/15/2024 Generated for Printi ng/Faxing/eTransmitting on:?05/13/2024 01:04 PM LASER BEAM COLOR SCANNER OPERATOR
--- OUTSIDE RECORDS SUMMARY | 2024-05-13 13:05 | XMS_ITS ---
Author Organization [facility] Address [address] [place] [address] Care Team Providers Care Director Cpg Name Role Phone Mustapha Hernández Unavailable [phone] REASON FOR VISIT Chronic upper airway symptoms concerning for uncontrolled atopic disease, Chronic lower airways symptoms concerning for possible asthma Problems Problem Type SNOMED Code ICD Code Onset Dates Problem Status W/U Status Risk Notes Problem Allergic rhinitis caused by pollen (disorder) (87929551) Allergic rhinitis due to pollen (J30.1) Active confirmed Problem Allergic rhinitis caused by animal hair and dander (368037623342675) Allergic rhinitis due to animal (cat) (dog) hair and dander (J30.81) Active confirmed Problem Allergic rhinitis (88188827) Other allergic rhinitis (J30.89) Active confirmed Problem Chronic allergic conjunctivitis (10414985) Other chronic allergic conjunctivitis (H10.45) Active confirmed Problem Chronic rhinitis (84796989) Chronic rhinitis (J31.0) Active confirmed Problem Uncomplicated moderate persistent asthma (286084154) Moderate persistent asthma, uncomplicated (J45.40) Active confirmed Problem Uncomplicated mild persistent asthma (092924006) Mild persistent asthma, uncomplicated (J45.30) Active confirmed Problem Uncomplicated severe persistent asthma (619376320) Severe persistent asthma, uncomplicated (J45.50) Active confirmed Encounters Encounter Location Date Provider Diagnosis [facility] [address] [address] 12/14/2023 Mustapha Alfonsomelanie Allergic rhinitis du e to pollen J30.1 [...] Reason: Evaluation and Management Progress Notes * Shira MUNSONB: [birth year] (23 yo F)Acc No.[id number]:12/14/2023 Progress Notes Patient:?ARPIT Karla Provider:?Mustapha Hernández PA-C :2000???Age:23 Y???Sex:Female D ate:12/14/2023 Address:[address] [place], [place] [phone] Subjective: * Chief Complaints: * ???1. Chronic [...] SCIT as an adjunctive measure?? * Procedure Codes:?04329 PRICK TESTS, Units: 72.00 , 34286 INTRADERMAL TESTS, 15743 MEASURE BLOOD OXYGEN LEVEL, 12369 SELF-MGMT EDUC & TRAIN, 1 PT, S9441 ASTHMA ED NON-MD PROV PER SESSION, 03193 PT-FOCUSED HLTH RISK ASSMT, G8427 DOC MEDS [...] Information: * Visit Code:? * Procedure Codes:? 31166 PRICK TESTS. Units: 72.00. 52009 INTRADERMAL TESTS. 66579 MEASURE BLOOD OXYGEN LEVEL. 63895 SELF-MGMT EDUC & TRAIN, 1 PT. S9441 ASTHMA ED NON-MD PROV PER SESSION. 25043 PT-FOCUSED HLTH RISK ASSMT. G8427 DOC MEDS VERIFIED W/PT OR RE. * Electronic signature of Huber Hernández PA-C on 05/13/2024 at 01:04 PM FISH ROE TECHNICIAN Sign off status: Pending * Provider:?Mustapha Hernández PA-C Date:? Generated for Malou anderson/Navid/eTpaytonsmbenedicto on:?05/13/2024 01:04 PM FISH ROE TECHNICIAN History and Physical Notes * HPI (History [...]
--- OUTSIDE RECORDS SUMMARY | 2024-05-13 14:22 | XMS_ITS | Clinical Summary ---
Author Organization [facility] Address [address] [place] [address]. [place], [place] [address] [place] [address] Care Team Providers Care Computer Security Coordinator Name Role Phone Unavailable Primary Care Provider [...]
--- OUTSIDE RECORDS SUMMARY | 2024-05-13 14:23 | XMS_ITS | Encounter Summary ---
Author Organization [facility] Address [address] [place] [address]. [place], [place] [address] [place] [address] Care Team Providers Care Supplier Quality Specialist Name Role Phone Unavailable Primary Care Provider Unavailabl e Encounter Details Date Type Department Care Team (Late st Contact Info) Description 11/20/2011 Abstract [facility] [address] [facility] [place] [address] Social History Tobacco Use Types Packs/Day Years [...]
--- OUTSIDE RECORDS SUMMARY | 2024-05-13 14:23 | XMS_ITS | Encounter Summary ---
Author Organization [facility] Address [address] [place] [address]. [place], [place] [address] [place] [address] Care Team Providers Care Ship Boat Or Barge Mate Name Role Phone Unavailable Primary Care Provider Unavailabl e Encounter Details Date Type Department Care Team (Late st Contact Info) Description 03/19/2006 Abstract [facility] CONVERSION [address] [place] [address] , Generic Conversion, Social History [...]
--- OUTSIDE RECORDS SUMMARY | 2024-05-13 14:23 | XMS_ITS | Encounter Summary ---
Author Organization [facility] Address [address] [place] [address]. [place] [address] [place] [address] Care Team Providers Care Tracer Bullet Charging Machine Operator Name Role Phone Unavailable Primary Care Provider Unavailabl e Encounter Details Date Type Department Care Team (Late st Contact Info) Description 11/16/2005 Abstract [facility] Room [address] [place], [place] [id number] Roberth Awan MD [address] [place] [address] Social History Tobacco Use Types Packs/Day Years [...]
--- OUTSIDE RECORDS SUMMARY | 2024-05-13 14:23 | XMS_ITS | Encounter Summary ---
Author Organization [facility] Address [address] [place] [address]. [place] [address] [place] [address] Care Team Providers Care Customer Specialist Name Role Phone Unavailable Primary Care Provider Unavailabl e Encounter Details Date Type Department Care Team (Late st Contact Info) Description 01/13/2013 Abstract [facility] [facility] [place] [address] Social History Tobacco Use Types Packs/Day Years [...]
== END 2024-05-06 11:04 | disposition home or self-care (01) ==
PROVIDERS: Emergency Provider Emergency Medicine; PCP Internal Medicine
DX: B34.9 Viral infection, unspecified (principal); D68.59 Other primary thrombophilia; Z20.822 Contact with and (suspected) exposure to COVID-19
CPT/HCPCS: 87637; 87651; 99282; A9270

== ENCOUNTER 2024-06-25 16:11 | Emergency (ER) | payer BC, OTHER, SELFPAY ==
--- OUTSIDE RECORDS SUMMARY | 2024-06-25 16:13 | XMS_ITS ---
Author Organization [facility] Address [address] [place] [address] Care Team Providers Care Carpet Cleaner Name Role Phone Britt Rivera Unavailable [phone] REASON FOR VISIT Chronic upper airway symptoms concerning for uncontrolled atopic disease, Chronic lower airways symptoms concerning for possible asthma Encounters Encounter Location Date Provider Diagnosis [facility] [address] [facility] [address] [place] [address] 12/28/2023 Britt Rivera Allergic rhinitis du e [...] * Shira MUNSONB: [birth year] (23 yo F)Acc No.[id number]:12/28/2023 Progress Notes Patient: Karla RAMIREZ Provider: MADELAINE Palacios-C :2000 A ge:23 Y S ex:Female Date:12/28/2023 Address:[address] [place], [place] [id number] Subjective: * 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 Chronic upper airway symptoms concerning for uncontrolled atopic disease. 2. Chronic lower airways symptoms concerning for possible asthma. * HPI: * Introduction: I had the pleasure of seeing x . * ROS: A LLERGY: Positive [...] 9 5004 PRICK TESTS, Units: 72.00 , 18976 INTRADERMAL TESTS, 84801 MEASURE BLOOD OXYGEN LEVEL, 92502 SELF-MGMT EDUC & TRAIN, 1 PT, S9441 ASTHMA ED NON-MD PROV PER SESSION, 26333 PT-FOCUSED HLTH RISK ASSMT, G8427 DOC MEDS [...] Information: * Visit Code: * Procedure Codes: 15801 PRICK TESTS. Units: 72.00. 80727 INTRADERMAL TESTS. 86966 MEASURE BLOOD OXYGEN LEVEL. 97812 SELF-MGMT EDUC & TRAIN, 1 PT. S9441 ASTHMA ED NON-MD PROV PER SESSION. 62555 PT-FOCUSED HLTH RISK ASSMT. G8427 DOC MEDS VERIFIED W/PT OR RE. * Electronic signature of Britt Rivera DNP, FNP-C on 06/25/2024 at 04:13 PM EMERGENCY PLANNER Sign off status: Pending * Provider: MADELAINE Palacios Date: 0 12/28/2023 Generated for Malou anderson/Navid/Jaja on: 0 06/25/2024 04:13 PM EMERGENCY PLANNER History and Physical Notes * HPI (History [...]
--- OUTSIDE RECORDS SUMMARY | 2024-06-25 16:13 | XMS_ITS | Clinical Summary ---
Author Organization [facility] Address [address] [place] [address] Care Team Providers Care High School Music Teacher Name Role Phone Unavailable Primary Care Provider [...] HPV Vaccines (1 - 3-dose series) 2016 Meningococcal B Vaccine (1 o f 2 - Standard) 2017 Hepatitis C 11/02/2019 DTaP, Tdap and Td Vaccines ( 1 - Tdap) 2020 Hepatitis B Vaccines (1 of 3 - 19+ 3-dose series) 2020 COVID-19 Vaccine (1 - 2023-2 5 season) 2024 Influenza Adult [...]
--- OUTSIDE RECORDS SUMMARY | 2024-06-25 16:13 | XMS_ITS ---
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 * Medical History: Objective: * Vitals: Assessment: Plan: * Treatment: * Billing Information: * Visit Code: * Procedure Codes: * Electronic signature of Britt Rivera DNP, FNP-C on 06/25/2024 at 04:13 PM POTASH FLAKER Sign off status: Pending * Provider: MADELAINE Palacios-Mis Date: Generated for Malou ng/Fasekoug/eTransmitting on: 0 06/25/2024 04:13 PM POTASH FLAKER
--- OUTSIDE RECORDS SUMMARY | 2024-06-25 16:13 | XMS_ITS | Data Portability ---
Author Organization [facility] [place] Address [address] [place] [address] Care Team Providers Care Video Network Engineer Name Role Phone DARRIUS RIZZO Primary Care Provider Assessment Encounter Date Assessment Date Assessment LastModified [...] Lab urinalysis , dipstick 2023 024 [address] [place], [address], [place], [address], 16:57:33 Referral None recorded. Procedures None recorded. [...] as clini skyler franco nted. Not Available [facility] (Lab) [address], [place], [address], 04/13/2023 10:48:58 04/06/20 23 04/06/2023 TRICH OMONA S VAGIN PRISCA (RRNA ) trichomonas vaginalis ribosomal RNA (rrna) Negati ve negati ve Not Available [facility] (Lab) [address], [place], [address], 04/13/2023 10:48:59 04/06/20 23 04/06/2023 CT/GC (OMI) , THINP REP VIAL chlamydia trachomatis, PCR Negati ve negati ve Not Available [facility] (Lab) [address], [place], [address], 04/13/2023 10:48:59 04/06/20 23 04/06/2023 CT/GC (OMI) , THINP REP VIAL neisseria gonorrhoeae, PCR Negati ve negati ve Not Available [facility] (Lab) [address], [place], [address], 04/13/2023 10:48:59 06/08/19 24 06/08/2023 VAGIN ITIS/ VAGIN OSIS, DNA PROBE hardeep sp. detection, direct probe Negati ve negati ve Not Available [facility] (Lab) [address], [place], [address], 06/09/2023 12:53:00 06/08/19 24 06/08/2023 VAGIN ITIS/ VAGIN OSIS, DNA PROBE gardnerella vag. detection, direct probe Negati ve negati ve Not Available [facility] (Lab) [address], [place], [address], 06/09/2023 12:53:00 06/08/19 24 06/08/2023 VAGIN ITIS/ VAGIN OSIS, DNA PROBE trichomonas vag. detection, direct probe Negati ve negati ve Not Available [facility] (Lab) [address], [place], [address], 06/09/2023 12:53:00 06/08/19 24 06/08/2023 urina lysis , dipst ick pH 5 Not Available [place] [address], [place], [address], 06/08/2023 16:57:16 06/08/19 24 06/08/2023 urina lysis , dipst ick Specific Gordon 1.010 Not Available [facility] [address], [place], [address], 06/08/2023 16:57:16 Result Notes None recorded. Procedures Surgical History Date Name Laterality Status Provider Name and Address Organization Details Recorded Time 04/06/20 Date of Last Pap Smear completed Carmen Thibodeaux [facility] 06/08/2023 16:42:19 Tonsillectomy completed [facility] 04/06/2023 16:46:04 Imaging Results None recorded. Procedure Notes None recorded. Medical Equipment None Reported. Allergies Allergen ID Allergen Name Allergen Category Reaction Reaction Severity Criticality Documentation Date Start Date Code Code System Note Provider Name and Address Organization Details Recorded Time 17824 Penicilli n Not available swelling moderate Not available 04/06/2023 90651 RxNorm [facility] 16:45:42 Medications Name Sig Start Date [...] Address Organization Details Last Updated DateTime 04/06/2023 019175.7 6 g 43.3 kg/m2 167.64 cm 111 mm[Hg] 72 mm[Hg] Laureen Ribeiro [facility] 3 16:48:06 Date Recorded Body height Body mass index (BMI) Body weight Systolic blood pressure Diastolic blood pressure Provider Name and Address Organization Details Last Updated DateTime 06/08/2023 167.64 cm 43.3 kg/m2 773517.7 6 g 120 mm[Hg] 80 mm[Hg] Carmen Thibodeaux [facility] 4 16:45:07 Social History Question Answer Notes LastModified by Organizat ion Details LastModified Time Tobacco Smoking Status Never Smoker Laureen Quintin [facility] 04/06/2023 16:53:13 What Is Your Level [...] Or The Highest Degree You Have Received? [id number] Information not available 04/06/2023 What Is Your [...] Anxious, Or Unable To Sleep At Night)? [id number] Information not available 04/06/2023 Do You Use [...] Disorder Y Heart Problems Y Other Y Neurologic/Epilepsy Y Hematologic disorders Y Gynecological History Statement/Question Response Flow Moderate [...] Diagnosis/Indication Diagnosis SNOMED-CT Code Diagnosis ICD10 Code Diagnosis Note [id number] Lesvia Nelia [facility] [address] [address] 04/06/2023 16:29:43 04/07/2023 09:49:52 Gynecologic examination 99236558 Z01.419 Z11.3 Z11.8 WWEBC - condomsdis cussed optionsint in paraguard, r/b/a reviewedif desires RTC with period for insertionp rimary pap collectedS TI testing added to pap Take Calcium with Vitamin D daily if not receiving in daily diet.It is strongly advised to have an annual flu shot and up can obtain at most pharmacies . If you have not had a TDap shot in the last 10 years you should obtain one as well.Discu ssed with patient & provided with informatio n regarding Gardisil vaccine to prevent the 4 strains for HPV that cause cervical cancer if under age 26.Encoura ge safe sexual practices, to use condoms and limit partners if not already in a monogamous relationsh ip.Do monthly self breast exams. Engage in daily exercise of low impact aerobic exercise 45-60 minutes 4-5 times weekly. Avoid tobacco and illicit drugs as well as using moderation with alcohol intake less than 1-2 8 oz beverages daily. This lifestyle behavior pattern will lead to less health conditions and longer life span. If BMI greater than 25 dietary consult advised.Wilber dubose received above instructio ns, and questions have been answered. If you have any questions please call or respond to this email.Rere sarabia was made aware of the patient portal and may obtain a paper copy of today's plan if desired. [facility] ion care management 988381220 Z30.9 [id number] Stacia Kee [facility] [address] [address] 06/08/2023 16:36:59 06/09/2023 15:55:40 Urinary symptoms 850165790 R39.9 Vaginitis 60678372 N76.0 Today we agreed to await return of lab testing since her exam appears wnl.We discussed that we do not want to pursue abx's when unnecessar y due to increased risk of resistance when used frequently ; especially in the absence of a true infection. We will reach out with results when they return.Connor lancaster VCG's Time spent in visit is a total of 21 mins with at least 50% of visit consisting of counseling and review of plan of care. Health Concerns Section Related Observation LastModified by Organization Detai ls LastModified Time None Recorded Concern Status LastModified by Organization Details LastModified Time None Recorded Advance Directives Directive None Recorded Payers Encounter Date Sequence Insurance Name Policy Number Policy Mcintosh Covered Member ID Mcintosh Member ID Guarantor Name 04/06/2023 1 [place] [id number] Roberto Robert [id number] Karla Hackett 04/06/[address] [facility] ON OR AFTER 11/14/20 (MEDICAID REPLACEMENT - HMO) Karla Hackett [id number] Karla Hackett 06/08/2023 1 [place] [id number] Roberto Robert [id number] Karla Hackett 06/08/[address] [facility] ON OR AFTER 11/14/20 (MEDICAID REPLACEMENT - HMO) Karla Hackett [id number] Karla Hackett Notes Date Note Type Note [...] C deficiency GUSTAVO Damon [address], [place], [address], [facility] 04/07/2023 09:37:57 06/08/2023 text/html Karla is a 22y o reproductive age female who is here today for vaginal odor. She expresses that this will be a random issue.No other sx's other than some dysuria. Neg pain of abd/pelvis/flankNe g urinary sx's except dysuriaNeg GI sx'sNeg N/V/F/C/DNeg Vag d/c,, irritation, itching GUSTAVO Graham- [address], [place], [address], [place] [facility] 06/09/2023 14:46:46 OBGyn Episode No OBEpisode recorded.
--- OUTSIDE RECORDS SUMMARY | 2024-06-25 16:14 | XMS_ITS ---
Author Organization [facility] Address [address] [place] [address] Care Team Providers Care Architectural Drafting Instructor Name Role Phone Mustapha Hernández Unavailable [phone] REASON FOR VISIT Chronic upper airway symptoms concerning for uncontrolled atopic disease, Chronic lower airways symptoms concerning for possible asthma Problems Problem Type SNOMED Code ICD Code Onset Dates Problem Status W/U Status Risk Notes Problem Allergic rhinitis caused by pollen (disorder) (76789555) Allergic rhinitis due to pollen (J30.1) Active confirmed Problem Allergic rhinitis caused by animal hair and dander (559940545251103) Allergic rhinitis due to animal (cat) (dog) hair and dander (J30.81) Active confirmed Problem Allergic rhinitis (30133649) Other allergic rhinitis (J30.89) Active confirmed Problem Chronic allergic conjunctivitis (31526439) Other chronic allergic conjunctivitis (H10.45) Active confirmed Problem Chronic rhinitis (49567136) Chronic rhinitis (J31.0) Active confirmed Problem Uncomplicated moderate persistent asthma (840481179) Moderate persistent asthma, uncomplicated (J45.40) Active confirmed Problem Uncomplicated mild persistent asthma (941754121) Mild persistent asthma, uncomplicated (J45.30) Active confirmed Problem Uncomplicated severe persistent asthma (882192300) Severe persistent asthma, uncomplicated (J45.50) Active confirmed Encounters Encounter Location Date Provider Diagnosis [facility] [address] [address] 12/14/2023 Mustapha Alfonsomelanie Allergic rhinitis du e [...] * Shira MUNSONB: 002 (23 yo F)Acc No.[id number]:12/14/2023 Progress Notes Patient: Marifer RAMIREZa Provider: Ivette Hernández PA-C :2000 A ge:23 Y S ex:Female Date:12/14/2023 Address:[address] [place], [place] [id number] Subjective: * 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 [...] 9 5004 PRICK TESTS, Units: 72.00 , 53213 INTRADERMAL TESTS, 96267 MEASURE BLOOD OXYGEN LEVEL, 31526 SELF-MGMT EDUC & TRAIN, 1 PT, S9441 ASTHMA ED NON-MD PROV PER SESSION, 05856 PT-FOCUSED HLTH RISK ASSMT, G8427 DOC MEDS [...] Information: * Visit Code: * Procedure Codes: 75997 PRICK TESTS. Units: 72.00. 27972 INTRADERMAL TESTS. 88927 MEASURE BLOOD OXYGEN LEVEL. 45614 SELF-MGMT EDUC & TRAIN, 1 PT. S9441 ASTHMA ED NON-MD PROV PER SESSION. 23249 PT-FOCUSED HLTH RISK ASSMT. G8427 DOC MEDS VERIFIED W/PT OR RE. * Electronic signature of Huber Hernández PA-C on 06/25/2024 at 04:13 PM CATTLE ALLEY WORKER Sign off status: Pending * Provider: Ivette Hernández PA-C Date: 0 12/14/2023 Generated for Malou anderson/Navid/Jaja on: 0 06/25/2024 04:13 PM CATTLE ALLEY WORKER History and Physical Notes * HPI (History [...]
--- OUTSIDE RECORDS SUMMARY | 2024-06-25 16:14 | XMS_ITS | Patient Health Record ---
Author Organization [facility] Address [address] [place] [address] Care Team Providers Care Manganese Heater Name Role Phone Mustapha Hernández Unavailable [phone] Alina Riveraa Unavailable [phone] Reason For Referral No Information Problems Problem Type SNOMED Code ICD Code Onset Dates Problem Status W/U Status Risk Notes Problem Chronic allergic conjunctivitis (51017226) Other chronic allergic conjunctivitis (H10.45) Active confirmed Problem Allergic rhinitis caused by pollen (disorder) (66416232) Allergic rhinitis due to pollen (J30.1) Active confirmed Problem Allergic rhinitis (45337916) Other allergic rhinitis (J30.89) Active confirmed Problem Chronic rhinitis (62392051) Chronic rhinitis (J31.0) Active confirmed Problem Uncomplicated mild persistent asthma (970399776) Mild persistent asthma, uncomplicated (J45.30) Active confirmed Problem Uncomplicated moderate persistent asthma (203709202) Moderate persistent asthma, uncomplicated (J45.40) Active confirmed Problem Uncomplicated severe persistent asthma (375484997) Severe persistent asthma, uncomplicated (J45.50) Active confirmed Problem Allergic rhinitis caused by animal hair and dander (549405052969941) Allergic rhinitis due to animal (cat) (dog) hair and dander (J30.81) Active confirmed Plan Of Treatment No Information Insurance Providers Payer Name Payer Address Payer Phone Subscriber Number Group Number Insured Name Patient Relationship to Insured Coverage Start Date Coverage End Date [facility] [id number] [place] [address] [id number] Karla Hackett Self - patient is the insured 9
--- OUTSIDE RECORDS SUMMARY | 2024-06-25 16:14 | XMS_ITS | Data Portability ---
Author Organization [facility], [address] [facility] ([place]) Address [address] [place] [address] Care Team Providers Care Instructional Aide Name Role Phone DARRIUS HOLLINGSWORTH Primary Care Provider [phone] Assessment No assessment recorded. Plan of Treatment [...] Address Organization Details Recorded Time Seizure disorder 850278940 Active 024 Asiya Soren [facility] 4 11:56:54 Staring 613176534 Active 024 Faith Carty MD [address] [place] [address], [phone] , [facility] 4 15:08:18 Problem Notes None recorded. Procedures Surgical History Date Name Laterality Status Provider Name and Address Organization Details Recorded Time 4 [place] EEG Procedure completed Faith Carty MD [address] [place] [address], [phone], [facility] 12/02/2023 15:08:06 Imaging Results None recorded. Procedure Notes None recorded. Medical Equipment None Reported. Allergies Allergen ID Allergen Name Allergen Category Reaction Reaction Severity Criticality Documentation Date Start Date Code Code System Note Provider Name and Address Organization Details Recorded Time 978814 Product containin g penicilli n and antibioti c (product) medicatio n Not available Not available Not available 06/14/20232019 69650 05 SNOMED Not Available Not Available Not [...] SNOMED-CT Code Diagnosis ICD10 Code Diagnosis Note [id number] Faith Carty MD [address] [place] [address] [place]rology ([place]) [address] [place] [address],[address] [place] [address] 10/19/2023 13:57:03 10/20/2023 11:42:09 Seizure disorder 484374053 G40.909 Staring 471769453 H51.8 Health Concerns Section Related Observation LastModified by Organization Detai ls LastModified Time None Recorded Concern Status LastModified by Organization Details LastModified Time None Recorded Advance Directives Directive None Recorded Payers Encounter Date Sequence Insurance Name Policy Number Policy Mcintosh Covered Member ID Mcintosh Member ID Guarantor Name 10/19/2023 2 [facility] - DOS ON OR AFTER 20 (MEDICAID REPLACEMENT - HMO) Karla Hackett [id number] Karla Hackett 10/19/2023 1 [place] [id number] Karla Hackett [id number] Karla Hackett OBGyn Episode No OBEpisode recorded.
[2024-06-25 16:15] VITALS: O2SAT 99
[2024-06-25 16:16] VITALS: BP 142/76; PULSE 70; RESP 18; TEMP 36; O2SAT 100
--- OUTSIDE RECORDS SUMMARY | 2024-06-25 16:37 | XMS_ITS | Clinical Summary ---
Author Organization [facility] Address [address] [place] [address] Care Team Providers Care Data Integrity Specialist Name Role Phone Unavailable Primary Care [...]
--- NOTE | 2024-06-25 17:00 | ED.GENADULT ---
HPI - General Adult General Chief complaint: Upper Respiratory Infection Stated complaint: nausea History of Present Illness HPI narrative: Karla is a 23F with a PMH of chronic tonsillitis s/p surgery, and migraines that presented to the ED not feeling well. She had a runny nose for a couple days then, yesterday she started to vomit, had a sore throat, body aches, chills and a headache. No CP or dyspnea. Related Data Home Medications ?Medication ?Instructions ?Recorded ?Confirmed ?Last Taken ?Type famotidine 40 mg tablet 40 mg PO DAILY 10/14/23 05/06/24 Unknown History levetiracetam 500 mg 500 mg PO DAILY 10/14/23 05/06/24 12/30/23 21:00 History tablet,extended release 24 hr (Keppra XR) propranolol 120 mg capsule,24 120 mg PO DAILY 10/14/23 05/06/24 12/30/23 21:00 History hr,extended release montelukast 10 mg tablet 10 mg PO DAILY 12/23/23 05/06/24 Unknown History lactobacillus combination no.4 3 3,000 mmu cells PO DAILY 12/29/23 05/06/24 Unknown History billion cell capsule (Probiotic) multivitamin 1 tablet PO DAILY 12/29/23 05/06/24 12/28/23 History Allergies Allergy/AdvReac Type Severity Reaction Status Date / Time Penicillins Allergy Severe facial Verified 06/25/24 16:33 swelling Review of Systems Review of Systems: All systems reviewed & are unremarkable except as noted in HPI and below PMFSH Past Medical History Medical History Morbid obesity History of sinus tachycardia Protein C deficiency Surgical History Surgical History History of tonsillectomy Family History Family History Father Cerebrovascular accident Tachycardia Social History Social History Smoking status: Never smoker Alcohol intake: current Alcohol use details: 6 PER YEAR Substance use: never Substance use type: does not use Lack of Transportation: No Lack of Food: Never True Current Housing: I Have Housing Concerned About Future Housing: No Difficulty Paying Gas/Electric Bills: No Difficulty Paying for Meds: No Currently Unemployed: No Education: High School Diploma/GED Difficulty w/ Childcare or Family Care: No Living arrangements: with family Occupation/Education: occupation 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[employer] Gender identity (if verbalized by the patient): Female Sexual Orientation (if Verbalized by the Patient): Straight or Heterosexual Spiritual care concerns: No Exam Const: General: cooperative, healthy appearing, comfortable, no acute distress, well developed, alert, awake and Physically active Orientation/consciousness: oriented to person, oriented to place and oriented to time HENMT: Head: normal to inspection, normocephalic and atraumatic Ears: hearing grossly normal bilaterally and external ears normal Face/Nose/Sinus: Normal external nose present Other: erythematous posterior oropharynx Eyes: General: appearance normal, both eyes and all related structures Periorbital: periorbital findings normal Sclera: sclerae normal Pupils: Equal, round and reactive pupils present Neck: Neck: normal visual inspection Chest: Chest palpation & inspection: normal inspection of the chest Resp: Effort & Inspection: normal respiratory effort, able to speak in complete sentences and no respiratory distress Auscultation: clear to auscultation bilaterally Cardio: Jugular venous distension: no JVD Rate: regular rate Rhythm: regular rhythm GI: Inspection: normal to inspection GI Palp: Yes Soft to palpation Auscultation: normal bowel sounds Skin: General skin exam: normal color and no rashes or lesions noted Neuro: General: oriented to person, oriented to place and oriented to time Cranial nerves: Yes Equal, round and reactive pupils present Extrem: General: normal to inspection Course Course Emergency Course: Ordered viral testing, fluids, and zofran RSV+ Vital Signs Vital signs: Vital Signs Pulse Oximetry 99 06/25/24 16:15 Oxygen Delivery Room Air 06/25/24 16:15 Temperature 98.7 F 06/25/24 17:10 Pulse Rate 60 06/25/24 17:10 Respiratory Rate 18 06/25/24 17:10 Blood Pressure 145/88 H 06/25/24 17:10 Pulse Oximetry 99 06/25/24 17:10 Oxygen Delivery Room Air 06/25/24 17:10 Medical Decision Making Vital Signs Vital Signs: Vital Signs Pulse Oximetry 99 06/25/24 16:15 Oxygen Delivery Room Air 06/25/24 16:15 Temperature 98.7 F 06/25/24 17:10 Pulse Rate 60 06/25/24 17:10 Respiratory Rate 18 06/25/24 17:10 Blood Pressure 145/88 H 06/25/24 17:10 Pulse Oximetry 99 06/25/24 17:10 Oxygen Delivery Room Air 06/25/24 17:10 Lab Data Labs: Lab Results 06/25/24 Range/Units 16:15 Influenza A (RT-PCR) Negative (Negative) Influenza B (RT-PCR) Negative (Negative) RSV (RT-PCR) Positive A (Negative) SARS-CoV-2 RNA (RT-PCR) Negative (Negative) Group A Strep (PCR) Not detected (Negative) Discharge Plan Discharge Clinical Impression: Respiratory syncytial virus (RSV) Patient Disposition: Home, Self-Care Condition: Stable Patient Language: Slovenian Prescriptions: New ondansetron 4 mg tablet,disintegrating 4 mg PO Q8H Qty: 10 0RF No Action levetiracetam [Keppra XR] 500 mg tablet extended release 24 hr 500 mg PO DAILY famotidine 40 mg tablet 40 mg PO DAILY propranolol 120 mg capsule,extended release 24hr 120 mg PO DAILY montelukast 10 mg tablet 10 mg PO DAILY multivitamin Tablet 1 tablet PO DAILY Probiotic 3 billion cell Capsule 3,000 mmu cells PO DAILY Rx Instructions: administer with a meal Follow-up/Referrals: Dominik Wilde MD [Primary Care Provider] -
[2024-06-25 17:10] VITALS: BP 145/88; PULSE 60; RESP 18; TEMP 37.1; O2SAT 99
[2024-06-25 17:10] LABS: Influenza A QL RT-PCR Negative (Negative); Influenza B QL RT-PCR Negative (Negative); RSV RNA, RT-PCR Positive (Negative); SARS-CoV-2 RNA PCR Negative (Negative); Strep Group A RT-PCR NOT DETECTED (Negative)
[2024-06-25] MEDS: SODIUM CHLORIDE 0.9% IV 1,000 ML 999 ML IV CONT (17:31)
[2024-06-25] MEDS: ONDANSETRON INJ 4 MG/2 ML VIAL IV PUSH (17:33)
[2024-06-25] MEDS: KETOROLAC 30 MG/ML VIAL (*BKC) IV PUSH (17:33)
[2024-06-25 18:18] VITALS: BP 131/77; PULSE 72; RESP 16; O2SAT 99
== END 2024-06-25 18:18 | disposition home or self-care (01) ==
PROVIDERS: Emergency Provider Family Medicine; PCP Internal Medicine
DX: J06.9 Acute upper respiratory infection, unspecified (principal); B97.4 Respiratory syncytial virus as the cause of diseases classified elsewhere; Z20.822 Contact with and (suspected) exposure to COVID-19
CPT/HCPCS: 87637; 87651; 96361; 96374; 96375; 99284; J1885; J2405; J7030

== ENCOUNTER 2024-10-03 14:40 | Outpatient (CLI) | payer BC, OTHER, SELFPAY ==
--- OUTSIDE RECORDS SUMMARY | 2024-10-03 14:52 | XMS_ITS | Data Portability ---
Author Organization [facility] [place] Address [address] [place] [address] [address] Care Team Providers Care Planning Aide Name Role Phone DARRIUS RIZZO Primary Care [...] Lab urinalysis , dipstick 2023 024 [address], [address], [place], [address], 16:57:33 Referral None recorded. Procedures None recorded. [...] as clini skyler franco nted. Not Available [facility] (Lab) [address], [place], [address], 04/13/2023 10:48:58 04/06/20 23 04/06/2023 TRICH OMONA S VAGIN PRISCA (RRNA ) trichomonas vaginalis ribosomal RNA (rrna) Negati ve negati ve Not Available [facility] (Lab) [address], [place], [address], 04/13/2023 10:48:59 04/06/20 23 04/06/2023 CT/GC (OMI) , THINP REP VIAL chlamydia trachomatis, PCR Negati ve negati ve Not Available [facility] (Lab) [address], [place], [address], 04/13/2023 10:48:59 04/06/20 23 04/06/2023 CT/GC (OMI) , THINP REP VIAL neisseria gonorrhoeae, PCR Negati ve negati ve Not Available [facility] (Lab) [address], [place], [address], 04/13/2023 10:48:59 06/08/19 24 06/08/2023 VAGIN ITIS/ VAGIN OSIS, DNA PROBE hardeep sp. detection, direct probe Negati ve negati ve Not Available [facility] (Lab) [address], [place], [address], 06/09/2023 12:53:00 06/08/19 24 06/08/2023 VAGIN ITIS/ VAGIN OSIS, DNA PROBE gardnerella vag. detection, direct probe Negati ve negati ve Not Available [facility] (Lab) [address], [place], [address], 06/09/2023 12:53:00 06/08/19 24 06/08/2023 VAGIN ITIS/ VAGIN OSIS, DNA PROBE trichomonas vag. detection, direct probe Negati ve negati ve Not Available [facility] (Lab) [address], [place], [address], 06/09/2023 12:53:00 06/08/19 24 06/08/2023 urina lysis , dipst ick pH 5 Not Available [place] [address], [place], [address], 06/08/2023 16:57:16 06/08/19 24 06/08/2023 urina lysis , dipst ick Specific Proctor 1.010 Not Available [facility] [address], [place], [address], 06/08/2023 16:57:16 Result Notes None recorded. Procedures Surgical History Date Name Laterality Status Provider Name and Address Organization Details Recorded Time 04/06/20 Date of Last Pap Smear completed Carmen Thibodeaux [facility] 06/08/2023 16:42:19 Tonsillectomy completed [facility] 04/06/2023 16:46:04 Imaging Results None recorded. Procedure Notes None recorded. Medical Equipment None Reported. Allergies Allergen ID Allergen Name Allergen Category Reaction Reaction Severity Criticality Documentation Date Start Date Code Code System Note Provider Name and Address Organization Details Recorded Time 67855 Penicilli n Not available swelling moderate Not available 04/06/2023 63140 RxNorm [facility] 16:45:42 Medications Name Sig Start Date [...] Address Organization Details Last Updated DateTime 04/06/2023 566648.7 6 g 43.3 kg/m2 167.64 cm 111 mm[Hg] 72 mm[Hg] Laureen Quintin [facility] 3 16:48:06 Date Recorded Body height Body mass index (BMI) Body weight Systolic blood pressure Diastolic blood pressure Provider Name and Address Organization Details Last Updated DateTime 06/08/2023 167.64 cm 43.3 kg/m2 384488.7 6 g 120 mm[Hg] 80 mm[Hg] Carmen Thibodeaux [facility] 4 16:45:07 Social History Question Answer Notes LastModified by Organizat ion Details LastModified Time Tobacco Smoking Status Never Smoker Laureen Quintin [facility] 04/06/2023 16:53:13 How Many Years Have You Consumed Alcohol? 1 Information not available 04/06/2023 Are You Blind Or Do You Have Difficulty Seeing? No Information n ot available 04/06/2023 What Is Your Level Of Caffeine Consumption? Moderate Information not available 04/06/2023 How Much Tobacco Do You Chew? None Information not available 04/06/2023 In The 14 Days Before Symptom Onset, Have You Had Close Contact With A Laboratory-confirm ed COVID-19 While That Case Was Ill? No Information n ot available 04/06/2023 In The 14 Days Before [...] Of Diet Are You Following? REGULAR Information n ot available 04/06/2023 What Is The Highest Grade Or Level Of School You Have Completed Or The Highest Degree You Have Received? [id number] Information not available 04/06/2023 Are There Any [...] IV Drugs? No Information not available 04/06/2023 Do You Have Difficulty Walking Or Climbing Stairs? No Information not available 04/06/2023 Sex: Unknown Functional Status Question Answer Note LastModified by Organizat ion Details LastModified Time Do you use any illicit or recreational drugs? No Information not available 04/06/2023 What is your level of alcohol consumption? Occasional Information not available 04/06/2023 Are you able to walk? YESWOREST Information not available 04/06/2023 Are you able to care for yourself? 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 No Information not available 04/06/2023 What is your exercise level? None Information not available 04/06/2023 Mental Status Question Answer Note LastModified by Organization D etails LastModified Time Do you feel stressed (tense, restless, nervous, or anxious, or unable to sleep at night)? [id number] Information not available 04/06/2023 Family History Relationship Description Onset Age of [...] SNOMED-CT Code Diagnosis ICD10 Code Diagnosis Note 587967 Lesvia Siddiqi [facility] [address] [address] 04/06/2023 16:29:43 04/07/2023 09:49:52 Gynecologic examination 75985327 Z01.419 Z11.3 Z11.8 WWEBC - condomsdis cussed [...] paper copy of today's plan if desired. [facility] ion care management 166861524 Z30.9 274548 Stacia Kee [facility] [address] [address] 06/08/2023 16:36:59 06/09/2023 15:55:40 Urinary symptoms 098032984 R39.9 Vaginitis 25075504 N76.0 Today we agreed to await return [...] Mcintosh Member ID Guarantor Name 04/06/2023 1 [place] [id number] Roberto Robert [id number] Karla Hackett 04/06/2023 2 [facility] ON OR AFTER 11/14/20 (MEDICAID REPLACEMENT - HMO) Karla Hackett [id number] Karla Hackett 06/08/2023 1 [place] ([place] [id number] Roberto Robert [id number] Karla Hackett 06/08/2023 2 [facility] ON OR AFTER 11/14/20 (MEDICAID REPLACEMENT - HMO) Karla Hackett [id number] Karla Hackett Notes Date Note Type Note [...] C deficiency GUSTAVO Damon [address], [place], [address], [facility] 04/07/2023 09:37:57 06/08/2023 text/html Karla is a 22y o reproductive age female who is here today for vaginal odor. She expresses that this will be a random issue.No other sx's other than some dysuria. Neg pain of abd/pelvis/flankNe g urinary sx's except dysuriaNeg GI sx'sNeg N/V/F/C/DNeg Vag d/c,, irritation, itching Stacia Kee, [facility]- [address], [place], [address], [facility] 06/09/2023 14:46:46 OBGyn Episode No OBEpisode recorded.
--- OUTSIDE RECORDS SUMMARY | 2024-10-03 14:53 | XMS_ITS ---
Author Organization [facility] [place] ([address]) Address [address] [place] [address] Care Team Providers Care Calenderer Name Role Phone Britt Rivera [phone] REASON FOR VISIT Chronic upper airway symptoms concerning for uncontrolled atopic disease, Chronic lower airways symptoms concerning for possible asthma Encounters Encounter Location Date Provider Diagnosis [facility] [address] [facility] [address] [place] [address] 12/28/2023 Britt Rivera Allergic rhinitis du e [...] Management Progress Notes * Marifer MUNSONaDOB: [birth year] (23 yo F)Acc No.[id number]:12/28/2023 Progress Notes Patient: Karla RAMIREZ Provider: MADELAINE Palacios :2000 A ge:23 Y S ex:Female Date:12/28/2023 Address:[address] [place], [place] [address] Subjective: * 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 [...] 9 5004 PRICK TESTS, Units: 72.00 , 99477 INTRADERMAL TESTS, 73094 MEASURE BLOOD OXYGEN LEVEL, 52179 SELF-MGMT EDUC & TRAIN, 1 PT, S9441 ASTHMA ED NON-MD PROV PER SESSION, 70733 PT-FOCUSED HLTH RISK ASSMT, G8427 DOC MEDS [...] Information: * Visit Code: * Procedure Codes: 32995 PRICK TESTS. Units: 72.00. 81293 INTRADERMAL TESTS. 74685 MEASURE BLOOD OXYGEN LEVEL. 85397 SELF-MGMT EDUC & TRAIN, 1 PT. S9441 ASTHMA ED NON-MD PROV PER SESSION. 20772 PT-FOCUSED HLTH RISK ASSMT. G8427 DOC MEDS VERIFIED W/PT OR RE. * Electronic signature of Britt Rivera DNP, FNP-C on 10/03/2024 at 02:52 PM CDT Sign off status: Pending * Provider: MADELAINE Palacios Date: 0 12/28/2023 Generated for Malou anderson/Navid/eTransmitting on: 10/03/2024 02:52 PM CDT History and Physical Notes * HPI (History [...]
--- OUTSIDE RECORDS SUMMARY | 2024-10-03 14:53 | XMS_ITS | Data Portability ---
Author Organization [facility], [address] [facility] ([place]) Address [address] [place] [address] Care Team Providers Care Swing Saw Operator Name Role Phone DARRIUS HOLLINGSWORTH Primary Care Provider Assessment No assessment recorded. Plan of Treatment [...] Address Organization Details Recorded Time Seizure disorder 283790520 Active 024 Asiya Soren [facility] 4 11:56:54 [place] 061980265 Active 024 Faith Carty MD [address] [place] [address], [address] , [facility] 4 15:08:18 Problem Notes None recorded. Procedures Surgical History Date Name Laterality Status Provider Name and Address Organization Details Recorded Time 4 MT EEG Procedure completed Faith Carty MD [address] [place] [address], [address], [facility] 12/02/2023 15:08:06 Imaging Results None recorded. Procedure Notes None recorded. Medical Equipment None Reported. Allergies Allergen ID Allergen Name Allergen Category Reaction Reaction Severity Criticality Documentation Date Start Date Code Code System Note Provider Name and Address Organization Details Recorded Time 431550 Product containin g penicilli n (product) medicatio n Not available Not available Not available 06/14/20232019 20648 8001 SNOMED Not Available [facility] 23:30:24 Medications Name Sig Start Date Stop Date [...] SNOMED-CT Code Diagnosis ICD10 Code Diagnosis Note [id number] Faith Carty MD [address] [facility] ([place]) [address] [place] [address] [address] 10/19/2023 13:57:03 10/20/2023 11:42:09 Seizure disorder 877553066 G40.909 [place] 435916917 H51.8 Health Concerns Section Related Observation LastModified by Organization Detai ls LastModified Time None Recorded Concern Status LastModified by Organization Details LastModified Time None Recorded Advance Directives Directive None Recorded Payers Insurance Date Sequence Insurance Name Policy Number Policy Mcintosh Covered Member ID Mcintosh Member ID Guarantor Name 12/03/2023 1 [place] [id number] Karla Hackett [id number] Karla Hackett 10/18/2023 3 [place] Karla Hackett [id number] Karla Hackett 12/03/2023 2 [facility] - DOS ON OR AFTER 20 (MEDICAID REPLACEMENT - HMO) Karla Hackett [id number] Karla Hackett OBGyn Episode No OBEpisode recorded.
--- OUTSIDE RECORDS SUMMARY | 2024-10-03 14:53 | XMS_ITS | Patient Health Record ---
Author Organization [facility] [place] ([address]) Address [address] [place] [address] Care Team Providers Care Net Architect Name Role Phone Mustapha Hernández Unavailable [phone] NicoleBritt Unavailable [phone] Reason For Referral No Information Problems Problem Type SNOMED Code ICD Code Onset Dates Problem Status W/U Status Risk Notes Problem Chronic allergic conjunctivitis (43861120) Other chronic allergic conjunctivitis (H10.45) Active confirmed Problem Allergic rhinitis caused by pollen (disorder) (02018020) Allergic rhinitis due to pollen (J30.1) Active confirmed Problem Allergic rhinitis (68094320) Other allergic rhinitis (J30.89) Active confirmed Problem Chronic rhinitis (35600567) Chronic rhinitis (J31.0) Active confirmed Problem Uncomplicated mild persistent asthma (318122531) Mild persistent asthma, uncomplicated (J45.30) Active confirmed Problem Moderate persistent asthma, uncomplicated (J45.40) Active confirmed Problem Uncomplicated severe persistent asthma (500225365) Severe persistent asthma, uncomplicated (J45.50) Active confirmed Problem Allergic rhinitis caused by animal hair and dander (199317073200043) Allergic rhinitis due to animal (cat) (dog) hair and dander (J30.81) Active confirmed Plan Of Treatment No Information Insurance Providers Payer Name Payer Address Payer Phone Subscriber Number Group Number Insured Name Patient Relationship to Insured Coverage Start Date Coverage End Date [facility] [id number] [place] [address] [phone] [id number] Karla Hackett Self - patient is the insured 9
--- OUTSIDE RECORDS SUMMARY | 2024-10-03 14:53 | XMS_ITS ---
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 * Medical History: Objective: * Vitals: Assessment: Plan: * Treatment: * Billing Information: * Visit Code: * Procedure Codes: * Electronic signature of Britt Rivera DNP, FNP-C on 10/03/2024 at 02:52 PM CDT Sign off status: Pending * Provider: MADELAINE Palacios Date: 1 Generated for Printi ng/Faxing/eTransmitting on: 0 10/03/2024 02:52 PM CDT
--- OUTSIDE RECORDS SUMMARY | 2024-10-03 14:53 | XMS_ITS ---
Author Organization [facility] [place] ([address]) Address [address] [place] [address] Care Team Providers Care Lifestyle Coordinator Name Role Phone Mustapha Hernández Unavailable [phone] REASON FOR VISIT Chronic upper airway symptoms concerning for uncontrolled atopic disease, Chronic lower airways symptoms concerning for possible asthma Problems Problem Type SNOMED Code ICD Code Onset Dates Problem Status W/U Status Risk Notes Problem Allergic rhinitis caused by pollen (disorder) (89197734) Allergic rhinitis due to pollen (J30.1) Active confirmed Problem Allergic rhinitis caused by animal hair and dander (816688020968826) Allergic rhinitis due to animal (cat) (dog) hair and dander (J30.81) Active confirmed Problem Allergic rhinitis (76361200) Other allergic rhinitis (J30.89) Active confirmed Problem Chronic allergic conjunctivitis (20418431) Other chronic allergic conjunctivitis (H10.45) Active confirmed Problem Chronic rhinitis (65148454) Chronic rhinitis (J31.0) Active confirmed Problem Uncomplicated moderate persistent asthma (973854304) Moderate persistent asthma, uncomplicated (J45.40) Active confirmed Problem Uncomplicated mild persistent asthma (016079443) Mild persistent asthma, uncomplicated (J45.30) Active confirmed Problem Uncomplicated severe persistent asthma (158262867) Severe persistent asthma, uncomplicated (J45.50) Active confirmed Encounters Encounter Location Date Provider Diagnosis [facility] [address] [facility] [address] [place] [address] 12/14/2023 Mustapha Edgar Allergic rhinitis du e [...] * Shira MUNSONB: [birth year] (23 yo F)Acc No.[id number]:12/14/2023 Progress Notes Patient: Karla RAMIREZ Provider: Ivette Hernández PA-C :2000 A ge:23 Y S ex:Female Date:12/14/2023 Address:[address] [place], [place] [address] Subjective: * 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 [...] 9 5004 PRICK TESTS, Units: 72.00 , 35381 INTRADERMAL TESTS, 22044 MEASURE BLOOD OXYGEN LEVEL, 64072 SELF-MGMT EDUC & TRAIN, 1 PT, S9441 ASTHMA ED NON-MD PROV PER SESSION, 68818 PT-FOCUSED HLTH RISK ASSMT, G8427 DOC MEDS [...] Information: * Visit Code: * Procedure Codes: 61114 PRICK TESTS. Units: 72.00. 01413 INTRADERMAL TESTS. 40003 MEASURE BLOOD OXYGEN LEVEL. 62865 SELF-MGMT EDUC & TRAIN, 1 PT. S9441 ASTHMA ED NON-MD PROV PER SESSION. 48662 PT-FOCUSED HLTH RISK ASSMT. G8427 DOC MEDS VERIFIED W/PT OR RE. * Electronic signature of Huber Hernández PA-C on 10/03/2024 at 02:52 PM CDT Sign off status: Pending * Provider: Ivette Hernández PA-C Date: 12/14/2023 Generated for Malou anderson/Navid/Jaja on: 10/03/2024 02:52 PM CDT History and [...]
--- NOTE | 2024-10-03 14:56 | ECG_ITS ---
Test Date: 2024-10-03 15:08:01 Measurements Intervals [place] Rate: 82 P: 28 LA: 176 QRS: 1 QRSD: 85 T: 18 QT: 362 QTc: 424 Interpretive Statements SINUS RHYTHM LOW QRS VOLTAGE IN PRECORDIAL LEADS [QRS DEFLECTION < 1.0 mV IN CHEST LEADS] POSSIBLE ANTERIOR MYOCARDIAL INFARCTION [30 ms Q WAVE IN V3/V4, OR R < 0.2 mV IN V4], PROBABLY OLD ABNORMAL ECG No previous ECG available for comparison Electronically Signed On 10-04-2024 08:17:48 CDT by Silverio Cifuentes M.D.
== END 2024-10-03 14:41 | disposition home or self-care (01) ==
LOC: ANHSURGERY 14:48
PROVIDERS: PCP Internal Medicine; Visit Provider Obstetrics & Gynecology
DX: I49.9 Cardiac arrhythmia, unspecified (principal); R00.0 Tachycardia, unspecified; R10.2 Pelvic and perineal pain; N83.209 Unspecified ovarian cyst, unspecified side
CPT/HCPCS: 36415; 86850; 86900; 86901; 93005

== ENCOUNTER 2024-10-06 01:46 | Day surgery (SDC) | payer BC, OTHER, SELFPAY ==
[2024-10-03 13:12] VITALS: BMI 48.2
--- NOTE | 2024-10-03 13:13 | PC.NURSE ---
Report to the Outpatient Waiting Room, entrance under the green pavilion located off [facility], at time _1130_ on date _23-16-2356_. Planned Procedure Time: 130pm_.? Time changes happen often and if your time is changed the preop area will call you the afternoon before. - You and your visitor will be asked to self-screen and do not enter if you have any COVID symptoms. Please call surgeon if you need to reschedule. - A mask is optional within the hospital at this time. Patients may have clear liquids (water, carbonated beverages, clear teas, apple juice) until 3 hours prior to surgery with a maximum of 20 ounces. - No food from midnight until time of surgery and no smoking, or chewing tobacco (or any form of nicotine). No chewing gum, candy or mints. Take only the following medications with a SIP of water on the morning of surgery: __None DO NOT STOP ANY OF YOUR OTHER PRESCRIPTION MEDICATIONS PRIOR TO SURGERY EXCEPT THE FOLLOWING Hold all vitamins and supplements for 3 days per anesthesiologist. Medications to discontinue per physician Date to take last dose__Stop today. Please no make-up, nail cymro, hairspray, perfume, deodorant, or body powder the day of surgery.? No jewelry (including any body piercings) or valuables the day of surgery, leave them at home.? Please take a shower or bath the night before, or the morning of, surgery with an antibacterial soap.? Wear comfortable, loose fitting clothing.? - Jewelry must be removed prior to entering the operating room.? Rings and piercings that are not removed may be cut off. - The hospital will not accept responsibility for valuables.? - Please leave all valuables, including medications, at home the day of surgery. If you are going home after surgery, a licensed sales route driver helper must drive you home.? - NO public transportation without another adult if you receive anesthesia. - We recommend that an adult stay with you for 24 hours following discharge. - We also recommend that you do not drive, make important decision, drink alcoholic beverages, or take any drugs that were not prescribed by your health care provider for at least 24 hours after your discharge time. Follow any additional instructions given to you from your surgeon. Telephone instructions given to __Tabetha___and asked if any additional questions and then verbalized understanding. Patient advised to call surgeon office or pre surgery nurse liaison [phone] if any additional questions.
--- NOTE | 2024-10-04 12:17 | P.HP_ITS ---
H&P: HPI History of Present Illness Date/Time: 10/04/24 12:17 Chief Complaint: Pelvic pain with right ovarian cyst Narrative: 23-year-old female with complex right ovarian cyst admitted for laparoscopy with right ovarian cystectomy risks and benefits reviewed including not exclusive of , aspiration pneumonia bleeding, transfusion perforation bowel or internal organs with need for. She received the entitled laparoscopy. She had all questions answered. She asked to proceed. Review of Systems Review of Systems: All systems reviewed & are unremarkable except as noted in HPI and below PMFSH Past Medical History Medical History Morbid obesity History of sinus tachycardia Protein C deficiency Surgical History Surgical History History of tonsillectomy Family History Family History Father Cerebrovascular accident Tachycardia Social History Social History Smoking status: Never smoker Alcohol intake: current Alcohol use details: 6 PER YEAR Substance use: never Substance use type: does not use Lack of Transportation: No Lack of Food: Never True Current Housing: I Have Housing Concerned About Future Housing: No Difficulty Paying Gas/Electric Bills: No Difficulty Paying for Meds: No Currently Unemployed: No Education: High School Diploma/GED Difficulty w/ Childcare or Family Care: No Living arrangements: with family Occupation/Education: occupation Additional occupation/education comments: [employer] office [employer] Gender identity (if verbalized by the patient): Female Sexual Orientation (if Verbalized by the Patient): Straight or Heterosexual Spiritual care concerns: No Meds Home Medications and Allergies Home Medications ?Medication ?Instructions ?Recorded ?Confirmed ?Type famotidine 40 mg tablet 40 mg PO DAILY 10/14/23 10/03/24 History levetiracetam 500 mg 500 mg PO DAILY 10/14/23 10/03/24 History tablet,extended release 24 hr (Keppra XR) propranolol 120 mg capsule,24 120 mg PO DAILY 10/14/23 10/03/24 History hr,extended release montelukast 10 mg tablet 10 mg PO DAILY 12/23/23 10/03/24 History lactobacillus combination no.4 3 3,000 mmu cells PO DAILY 12/29/23 10/03/24 History billion cell capsule (Probiotic) multivitamin 1 tablet PO DAILY 12/29/23 10/03/24 History ondansetron 4 mg disintegrating 4 mg PO Q8H #10 tabs 06/25/24 10/03/24 Rx tablet Allergies Allergy/AdvReac Type Severity Reaction Status Date / Time Penicillins Allergy Severe facial Verified 10/03/24 13:05 swelling Exam Const: General: cooperative, healthy appearing, comfortable and overweight Orientation/consciousness: oriented to person, oriented to place and oriented to time Resp: Effort & Inspection: normal respiratory effort Cardio: Rate: regular rate Rhythm: regular rhythm Heart sounds: S1 normal heart sound present and S2 normal heart sound present GI: Inspection: normal to inspection : External Female Exam: normal external appearance Speculum Exam - Vagina: normal appearance of the vagina Speculum Exam - Cervix: normal appearance of the cervix Bimanual exam- vagina & uterus: soft Bimanual Exam- Adnexa, other: Adnexal mass present on the right tender Assessment and Plan Assessment and plan (1) Right ovarian cyst: Code(s): N83.201 - Unspecified ovarian cyst, right side Status: Acute (2) Pelvic pain: Code(s): R10.2 - Pelvic and perineal pain Status: Acute Plan Will proceed with laparoscopic right ovarian cystectomy
[2024-10-06] VITALS (9 sets, daily range): BP systolic 112–146; BP diastolic 48–88; PULSE 62–93; RESP 12–20; TEMP 36.2–36.8; O2SAT 95–98
--- OUTSIDE RECORDS SUMMARY | 2024-10-06 01:49 | XMS_ITS ---
Author Organization [facility] [place] ([address]) Address [address] [place] [address] Care Team Providers Care Import/Export Agent Name Role Phone Britt Rivera [phone] REASON FOR VISIT Chronic upper airway symptoms concerning for uncontrolled atopic disease, Chronic lower airways symptoms concerning for possible asthma Encounters Encounter Location Date Provider Diagnosis [facility] [facility] [address] [place] [address] 12/28/2023 Britt Rivera Allergic rhinitis du e [...] * Marifer MUNSONaDOB: [birth year] (23 yo F)Acc No.[id number]:12/28/2023 Progress Notes Patient: Karla RAMIREZ Provider: MADELAINE Palacios :2000 A ge:23 Y S ex:Female Date:12/28/2023 Address:[address] [place], [place] [address] Subjective: * 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 [...] 9 5004 PRICK TESTS, Units: 72.00 , 10827 INTRADERMAL TESTS, 63482 MEASURE BLOOD OXYGEN LEVEL, 18980 SELF-MGMT EDUC & TRAIN, 1 PT, S9441 ASTHMA ED NON-MD PROV PER SESSION, 89481 PT-FOCUSED HLTH RISK ASSMT, G8427 DOC MEDS [...] Information: * Visit Code: * Procedure Codes: 34071 PRICK TESTS. Units: 72.00. 98148 INTRADERMAL TESTS. 89201 MEASURE BLOOD OXYGEN LEVEL. 26362 SELF-MGMT EDUC & TRAIN, 1 PT. S9441 ASTHMA ED NON-MD PROV PER SESSION. 73589 PT-FOCUSED HLTH RISK ASSMT. G8427 DOC MEDS VERIFIED W/PT OR RE. * Electronic signature of Britt Rivera DNP, FNP-C on 10/06/2024 at 01:48 AM CDT Sign off status: Pending * Provider: MADELAINE Palacios Date: 0 12/28/2023 Generated for Malou anderson/Navid/Jaja on: 0 10/06/2024 01:48 AM CDT History and Physical Notes * HPI [...]
--- OUTSIDE RECORDS SUMMARY | 2024-10-06 01:49 | XMS_ITS | Data Portability ---
Author Organization [facility], [address] [facility] Neurology ([place]) Address [address] [place] [address] Care Team Providers Care Clinical Coder Name Role Phone DARRIUS HOLLINGSWORTH Primary Care Provider [phone] Assessment No assessment recorded. Plan of Treatment [...] Address Organization Details Recorded Time Seizure disorder 392332870 Active 024 Asiya Soren [facility] 4 11:56:54 Staring 240619979 Active 024 Faith Carty MD [address] [place] [address], [address] , [facility] 4 15:08:18 Problem Notes None recorded. Procedures Surgical History Date Name Laterality Status Provider Name and Address Organization Details Recorded Time 4 [place] EEG Procedure completed Faith Carty MD [address] [place] [address], [phone], [facility] 12/02/2023 15:08:06 Imaging Results None recorded. Procedure Notes None recorded. Medical Equipment None Reported. Allergies Allergen ID Allergen Name Allergen Category Reaction Reaction Severity Criticality Documentation Date Start Date Code Code System Note Provider Name and Address Organization Details Recorded Time 123520 Product containin g penicilli n (product) medicatio n Not available Not available Not available 06/14/20232019 94032 8001 SNOMED Not Available [facility] 23:30:24 Medications Name Sig Start Date Stop Date Status Note LastModified by Organization Details LastModified Time chlorzoxazone 500 mg tablet active Not Available Not Availabl e Not Available Keppra 1,000 mg tablet Take 1 tablet every 12 hours by oral route. active Not Available Not Available No t Available levetiracetam ER 500 mg tablet,extended release 24 hr TAKE 1 TABLET BY MOUTH EVERY DAY AT NIGHT active Not Available Not Available No t [...] SNOMED-CT Code Diagnosis ICD10 Code Diagnosis Note [id number] Faith Carty MD [address] Neurology ([place]) [address] [place] [address],[address] [place] [address] 10/19/2023 13:57:03 10/20/2023 11:42:09 Seizure disorder 101751476 G40.909 Staring 455731676 H51.8 Health Concerns Section Related Observation LastModified by Organization Detai ls LastModified Time None Recorded Concern Status LastModified by Organization Details LastModified Time None Recorded Advance Directives Directive None Recorded Payers Insurance Date Sequence Insurance Name Policy Number Policy Mcintosh Covered Member ID Mcintosh Member ID Guarantor Name 12/03/2023 1 [place] [id number] Karla Hackett [id number] Karla Hackett 10/18/2023 3 [place] Karla Hackett [id number] Karla Hackett 12/03/2023 2 [facility] - DOS ON OR AFTER 20 (MEDICAID REPLACEMENT - HMO) Karla Hackett [id number] Karla Hackett OBGyn Episode No OBEpisode recorded.
--- OUTSIDE RECORDS SUMMARY | 2024-10-06 01:49 | XMS_ITS | Data Portability ---
Author Organization [facility] [place] Address [address] [place] [address] [address] Care Team Providers Care Ball Mill Operator Name Role Phone DARRIUS RIZZO Primary Care Provider [phone] Assessment Encounter Date Assessment Date Assessment LastModified [...] Lab urinalysis , dipstick 2023 [address] [place], [address], [place], [address], 16:57:33 Referral None recorded. Procedures None recorded. [...] as clini skyler franco nted. Not Available [facility] (Lab) [address] [facility], [place], [address], 04/13/2023 10:48:58 04/06/20 23 04/06/2023 TRICH OMONA S VAGIN PRISCA (RRNA ) trichomonas vaginalis ribosomal RNA (rrna) Negati ve negati ve Not Available [facility] (Lab) [address] [facility], [place], [address], 04/13/2023 10:48:59 04/06/20 23 04/06/2023 CT/GC (OMI) , THINP REP VIAL chlamydia trachomatis, PCR Negati ve negati ve Not Available [facility] (Lab) [address] [facility], [place], [address], 04/13/2023 10:48:59 04/06/20 23 04/06/2023 CT/GC (OMI) , THINP REP VIAL neisseria gonorrhoeae, PCR Negati ve negati ve Not Available [facility] (Lab) [address] [facility], [place], [address], 04/13/2023 10:48:59 06/08/19 24 06/08/2023 VAGIN ITIS/ VAGIN OSIS, DNA PROBE hardeep sp. detection, direct probe Negati ve negati ve Not Available [facility] (Lab) [address] [facility], [place], [address], 06/09/2023 12:53:00 06/08/19 24 06/08/2023 VAGIN ITIS/ VAGIN OSIS, DNA PROBE gardnerella vag. detection, direct probe Negati ve negati ve Not Available [facility] (Lab) [address] [facility], [place], [address], 06/09/2023 12:53:00 06/08/19 24 06/08/2023 VAGIN ITIS/ VAGIN OSIS, DNA PROBE trichomonas vag. detection, direct probe Negati ve negati ve Not Available [facility] (Lab) [address], [place], [address], 06/09/2023 12:53:00 06/08/19 24 06/08/2023 urina lysis , dipst ick pH 5 Not Available [place] [address], [place], [address], 06/08/2023 16:57:16 06/08/19 24 06/08/2023 urina lysis , dipst ick Specific Rainbow 1.010 Not Available [facility] [address], [place], [address], 06/08/2023 16:57:16 Result Notes None recorded. Procedures Surgical History Date Name Laterality Status Provider Name and Address Organization Details Recorded Time 04/06/20 Date of Last Pap Smear completed Carmen Thibodeaux [facility] 06/08/2023 16:42:19 Tonsillectomy completed [facility] 04/06/2023 16:46:04 Imaging Results None recorded. Procedure Notes None recorded. Medical Equipment None Reported. Allergies Allergen ID Allergen Name Allergen Category Reaction Reaction Severity Criticality Documentation Date Start Date Code Code System Note Provider Name and Address Organization Details Recorded Time 46864 Penicilli n Not available swelling moderate Not available 04/06/2023 14536 RxNorm [facility] 16:45:42 Medications Name Sig Start Date [...] Address Organization Details Last Updated DateTime 04/06/2023 466011.7 6 g 43.3 kg/m2 167.64 cm 111 mm[Hg] 72 mm[Hg] Laureen Quintin [facility] 3 16:48:06 Date Recorded Body height Body mass index (BMI) Body weight Systolic blood pressure Diastolic blood pressure Provider Name and Address Organization Details Last Updated DateTime 06/08/2023 167.64 cm 43.3 kg/m2 301650.7 6 g 120 mm[Hg] 80 mm[Hg] Carmen Thibodeaux [facility] 4 16:45:07 Social History Question Answer Notes LastModified by Organizat ion Details LastModified Time Tobacco Smoking Status Never Smoker Laureen Quintin [facility] 04/06/2023 16:53:13 How Many Years Have [...] Or The Highest Degree You Have Received? OB07759-3 Information not available 04/06/2023 Are There Any [...] anxious, or unable to sleep at night)? GH94131-5 Information not available 04/06/2023 Family History Relationship [...] SNOMED-CT Code Diagnosis ICD10 Code Diagnosis Note [id number] Lesvia Siddiqi [facility] [address] [address] 04/06/2023 16:29:43 04/07/2023 09:49:52 Gynecologic examination 85077738 Z01.419 Z11.3 Z11.8 WWEBC - condomsdis cussed [...] paper copy of today's plan if desired. [facility] ion care management 295194562 Z30.9 354197 [facility]acia Kee [facility] [address] [address] 06/08/2023 16:36:59 06/09/2023 15:55:40 Urinary symptoms 506768557 R39.9 Vaginitis 94646613 N76.0 Today we agreed to await return [...] Mcintosh Member ID Guarantor Name 04/06/2023 1 [place] [id number] Roberto Robert [id number] Karla Hackett 04/06/2023 2 [facility] ON OR AFTER 11/14/20 (MEDICAID REPLACEMENT - HMO) Karla Hackett [id number] Karla Hackett 06/08/2023 1 [place] [id number] Roberto Robert [id number] Karla Hackett 06/08/2023 2 [facility] ON OR AFTER 11/14/20 (MEDICAID REPLACEMENT - HMO) Karla Hackett [id number] Karla Hackett Notes Date Note Type Note [...] C deficiency GUSTAVO Damon [address], [place], [address], [place] [facility] 04/07/2023 09:37:57 06/08/2023 text/html Karla is a 22y o reproductive age female who is here today for vaginal odor. She expresses that this will be a random issue.No other sx's other than some dysuria. Neg pain of abd/pelvis/flankNe g urinary sx's except dysuriaNeg GI sx'sNeg N/V/F/C/DNeg Vag d/c,, irritation, itching Stacia Kee, [facility]- [address], [place], [address], [facility] 06/09/2023 14:46:46 OBGyn Episode No OBEpisode recorded.
--- OUTSIDE RECORDS SUMMARY | 2024-10-06 01:49 | XMS_ITS ---
Author Organization [facility] [place] ([address]) Address [address] [place] [address] Care Team Providers Care Shaker Plate Operator Name Role Phone Mustapha Hernández Unavailable [phone] REASON FOR VISIT Chronic upper airway symptoms concerning for uncontrolled atopic disease, Chronic lower airways symptoms concerning for possible asthma Problems Problem Type SNOMED Code ICD Code Onset Dates Problem Status W/U Status Risk Notes Problem Allergic rhinitis caused by pollen (disorder) (28513759) Allergic rhinitis due to pollen (J30.1) Active confirmed Problem Allergic rhinitis caused by animal hair and dander (572627776596969) Allergic rhinitis due to animal (cat) (dog) hair and dander (J30.81) Active confirmed Problem Allergic rhinitis (71708473) Other allergic rhinitis (J30.89) Active confirmed Problem Chronic allergic conjunctivitis (60485167) Other chronic allergic conjunctivitis (H10.45) Active confirmed Problem Chronic rhinitis (43315776) Chronic rhinitis (J31.0) Active confirmed Problem Uncomplicated moderate persistent asthma (289278097) Moderate persistent asthma, uncomplicated (J45.40) Active confirmed Problem Uncomplicated mild persistent asthma (647043798) Mild persistent asthma, uncomplicated (J45.30) Active confirmed Problem Uncomplicated severe persistent asthma (368236086) Severe persistent asthma, uncomplicated (J45.50) Active confirmed Encounters Encounter Location Date Provider Diagnosis [facility] [place] [facility] [address] [facility] [address] [place] [address] 12/14/2023 Mustapha Edgar Allergic rhinitis du e [...] and Management Progress Notes * MUNSONShiraB: [birth year] (23 yo F)Acc No.[id number]:12/14/2023 Progress Notes Patient: Karla RAMIREZ Provider: Ivette Hernández PA-C :2000 A ge:23 Y S ex:Female Date:12/14/2023 Address:[address] [place], [place] [address] Subjective: * 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 [...] 9 5004 PRICK TESTS, Units: 72.00 , 56893 INTRADERMAL TESTS, 63517 MEASURE BLOOD OXYGEN LEVEL, 51136 SELF-MGMT EDUC & TRAIN, 1 PT, S9441 ASTHMA ED NON-MD PROV PER SESSION, 93594 PT-FOCUSED HLTH RISK ASSMT, G8427 DOC MEDS [...] Information: * Visit Code: * Procedure Codes: 12609 PRICK TESTS. Units: 72.00. 87140 INTRADERMAL TESTS. 89179 MEASURE BLOOD OXYGEN LEVEL. 45278 SELF-MGMT EDUC & TRAIN, 1 PT. S9441 ASTHMA ED NON-MD PROV PER SESSION. 09847 PT-FOCUSED HLTH RISK ASSMT. G8427 DOC MEDS VERIFIED W/PT OR RE. * Electronic signature of Huber Hernández PA-C on 10/06/2024 at 01:49 AM CDT Sign off status: Pending * Provider: Ivette Hernández PA-C Date: 12/14/2023 Generated for Malou anderson/Navid/Jaja on: 10/06/2024 01:49 AM CDT History and Physical Notes * [...]
--- OUTSIDE RECORDS SUMMARY | 2024-10-06 01:49 | XMS_ITS | Patient Health Record ---
Author Organization [facility] [place] ([address]) Address [address] [place] [address] Care Team Providers Care Lithograph Operator Name Role Phone Mustapha Hernández Unavailable [phone] NicoleBritt Unavailable [phone] Reason For Referral No Information Problems Problem Type SNOMED Code ICD Code Onset Dates Problem Status W/U Status Risk Notes Problem Chronic allergic conjunctivitis (84927732) Other chronic allergic conjunctivitis (H10.45) Active confirmed Problem Allergic rhinitis caused by pollen (disorder) (68922028) Allergic rhinitis due to pollen (J30.1) Active confirmed Problem Allergic rhinitis (03253601) Other allergic rhinitis (J30.89) Active confirmed Problem Chronic rhinitis (25171870) Chronic rhinitis (J31.0) Active confirmed Problem Uncomplicated mild persistent asthma (762164139) Mild persistent asthma, uncomplicated (J45.30) Active confirmed Problem Uncomplicated moderate persistent asthma (590492128) Moderate persistent asthma, uncomplicated (J45.40) Active confirmed Problem Uncomplicated severe persistent asthma (978830548) Severe persistent asthma, uncomplicated (J45.50) Active confirmed Problem Allergic rhinitis caused by animal hair and dander (104006980148432) Allergic rhinitis due to animal (cat) (dog) hair and dander (J30.81) Active confirmed Plan Of Treatment No Information Insurance Providers Payer Name Payer Address Payer Phone Subscriber Number Group Number Insured Name Patient Relationship to Insured Coverage Start Date Coverage End Date [facility] [address] [place] [address] [id number] Karla Hackett Self - patient is the insured 9
--- OUTSIDE RECORDS SUMMARY | 2024-10-06 01:49 | XMS_ITS ---
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 * Medical History: Objective: * Vitals: Assessment: Plan: * Treatment: * Billing Information: * Visit Code: * Procedure Codes: * Electronic signature of Britt Rivera DNP, FNP-C on 10/06/2024 at 01:48 AM CDT Sign off status: Pending * Provider: MADELAINE Palacios Date: 1 Generated for Printi ng/Faxing/eTransmitting on: 0 10/06/2024 01:48 AM CDT
--- NOTE | 2024-10-06 06:10 | WPDHPUPDATE1 ---
History and Physical Update Update Date/Time: 10/06/24 06:10 History and Physical has been reviewed, including an updated exam of the patient. There are NO changes in the patient's condition. Risks, benefits, and alternatives have been discussed and questions answered. Patient agrees to proceed with procedure.
[2024-10-06] MEDS: ACETAMINOPHEN 500 MG TABLET 1000 MG PO (10:59)
[2024-10-06] MEDS: LACTATED RINGERS 1,000 ML 30 ML IV CONT (11:05)
[2024-10-06] MEDS: KETOROLAC 15 MG/ML VIAL (*BKC) IV PUSH (11:11)
--- NOTE | 2024-10-06 11:17 | WPDANESEPPF ---
Anes - Initial Pre Proc Eval Procedure: Operation Date: 10/06/24 12:30 Proposed Procedures p Laparoscopic Right Ovarian Cystectomy - Roberth Kyle MD Date/Time: 10/06/24 11:17 Surgeon: Roberth Kyle MD Pre Op Diagnosis: pelvic pain, right ovarian cyst Patient Data Age: 23 Gender: F Height: 1.68 m Weight: 135.5 kg Allergies Allergy/AdvReac Type Severity Reaction Status Date / Time Penicillins Allergy Severe facial Verified 10/06/24 10:43 swelling Home Medications ?Medication ?Instructions ?Recorded ?Confirmed ?Type famotidine 40 mg tablet 40 mg PO DAILY 10/14/23 10/06/24 History levetiracetam 500 mg 500 mg PO DAILY 10/14/23 10/06/24 History tablet,extended release 24 hr (Keppra XR) propranolol 120 mg capsule,24 120 mg PO DAILY 10/14/23 10/06/24 History hr,extended release montelukast 10 mg tablet 10 mg PO DAILY 12/23/23 10/06/24 History lactobacillus combination no.4 3 3,000 mmu cells PO DAILY 12/29/23 10/06/24 History billion cell capsule (Probiotic) multivitamin 1 tablet PO DAILY 12/29/23 10/06/24 History ondansetron 4 mg disintegrating 4 mg PO Q8H #10 tabs 06/25/24 10/03/24 Rx tablet escitalopram oxalate 5 mg tablet 5 mg PO HS 10/06/24 10/06/24 History hydrocodone 5 mg-acetaminophen 325 1 tablet PO Q4H PRN pain #20 tabs 10/06/24 Rx mg tablet Patient hx anesthesia problems: none Family hx anesthesia problems: none Results Review: All pre-operative results and documents have been reviewed as part of the pre-operative evaluation. [facility] Past Medical History Medical History Morbid obesity History of sinus tachycardia Protein C deficiency Surgical History Surgical History History of tonsillectomy Family History Family History Father Cerebrovascular accident Tachycardia Social History Social History Smoking status: Never smoker Alcohol intake: current Alcohol use details: 6 PER YEAR Substance use: never Substance use type: does not use Lack of Transportation: No Lack of Food: Never True Current Housing: I Have Housing Concerned About Future Housing: No Difficulty Paying Gas/Electric Bills: No Difficulty Paying for Meds: No Currently Unemployed: No Education: High School Diploma/GED Difficulty w/ Childcare or Family Care: No Living arrangements: with family Occupation/Education: occupation 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[employer] Gender identity (if verbalized by the patient): Female Sexual Orientation (if Verbalized by the Patient): Straight or Heterosexual Spiritual care concerns: No Anes - Eval Final PreProcedure Day of Procedure 10/06/24 11:17 Patient weight: morbidly obese Heart: regular rate and rhythm Lungs: clear to auscultation Airway: Mallampati scale class II Neurological: alert and oriented Last oral intake: >/= 8 hours ASA classification: III Emergent: no Anesthetic plan: proceed Anesthesia type and monitoring: general ETT and standard monitoring Results Review: All pre-operative results and documents have been reviewed as part of the pre-operative evaluation. Informed Consent: The patient's anesthetic plan and its attendant risks and benefits were discussed with the patient/family/POA. Questions were solicited and answers provided to the satisfaction of the patient/family/POA.
--- NOTE | 2024-10-06 11:19 | SUR.PREOP ---
1100-pt refuses seizure pads, states they make her anxious-explained to pt we will not apply in preop but, will need them after anesthesia, verbalizes agreement. Dr. Theresa Kyle aware.
[2024-10-06 11:26] LABS: BEDSIDEPREGUCG Negative (Negative)
--- NOTE | 2024-10-06 12:08 | W.PM.PROC2 ---
Procedure Note - Detailed Date of Procedure 10/06/24 Pre-op Diagnosis pelvic pain, right ovarian cyst Post-op Diagnosis Other (Pelvic pain/right ovarian cyst/endometriosis) Procedure Performed Laparoscopy with destruction of a right ovarian cyst and destruction of endometriosis Surgeon Roberth Kyle MD Anesthesia General Indications This is a 23-year-old female with pelvic pain and a right ovarian cyst on imaging Findings Benign 3-4 cm follicular cyst. Small areas of powder burn endometriosis on right uterosacral ligament. Normal-appearing appendix Description of Procedure Patient was prepped draped in the normal sterile fashion placed in dorsal lithotomy position. Under excellent general trach anesthesia weighted speculum placed in posterior fornix vagina. Anterior lip the cervix grasped with a single-tooth tenaculum. Melendez's cannula inserted the cervix and attached to the single-tooth to be used later for uterine manipulation. After emptying the bladder clear urine the weighted speculum was removed the gloves were changed. A supraumbilical incision made the Veress needle passed in the abdomen. Abdomen filled with CO2 gas 15mmmmofmercury. The 5mm trocar advanced in the abdomen. Downside visualized no injury seen. Patient placed in Trendelenburg and a suprapubic incision made the 5mm trocar was then advanced into the abdomen under direct visualization assuring no injury. The above findings were seen. Irrigation was undertaken this was small amount of bloody discharge. The right ovarian cyst was opened in linear fashion and drained of clear follicular fluid. Small areas of endometriosis were seen along the right uterosacral ligament these were cauterized at 35 w per 2nd using monopolar cautery. Irrigation at undertaken again. Photo documentation undertaken. Lower site removed. The gas removed from the abdomen. The upper site removed the incisions closed with 4 Monocryl glue the patient was awakened. She went to recovery in satisfactory condition. All sponge, needle, instrument counts were correct. There were no immediate complications Estimated Blood Loss 5 Drains No Packing No Pathology None sent Complications No immediate complications Condition Stable Disposition PACU
[2024-10-06] MEDS: fentaNYL CITRATE INJ (*CRX) 100 MCG/2 ML VIAL 25 MCG IV PUSH ×3 (12:39→13:00)
[2024-10-06] MEDS: oxyCODONE HCL (*CRX) 5 MG TAB IR PO (13:41)
== END 2024-10-06 14:25 | disposition home or self-care (01) ==
PROVIDERS: PCP Internal Medicine; Visit Provider Obstetrics & Gynecology
PROC: (CPT 49320; principal; 2024-10-06 12:30)
DX: N83.01 Follicular cyst of right ovary (principal); N80.3C1 Endometriosis of the right uterosacral ligament, unspecified depth; D68.59 Other primary thrombophilia; R00.0 Tachycardia, unspecified; E66.01 Morbid (severe) obesity due to excess calories; Z68.42 Body mass index [BMI] 45.0-49.9, adult; Z79.891 Long term (current) use of opiate analgesic; Z98.890 Other specified postprocedural states; Z82.49 Family history of ischemic heart disease and other diseases of the circulatory system
CPT/HCPCS: 58662; A9270; J1100; J1885; J2003; J2250; J2405; J2704; J3010; J7120

== ENCOUNTER 2024-12-05 09:44 | Outpatient (CLI) | payer BC, OTHER, SELFPAY ==
--- OUTSIDE RECORDS SUMMARY | 2024-12-05 09:51 | XMS_ITS ---
Author Organization [facility] [place] ([address]) Address [address] [place] [address] Care Team Providers Care Insurance Executive Name Role Phone Mustapha Hernández Unavailable [phone] REASON FOR VISIT Chronic upper airway symptoms concerning for uncontrolled atopic disease, Chronic lower airways symptoms concerning for possible asthma Problems Problem Type SNOMED Code ICD Code Onset Dates Problem Status W/U Status Risk Notes Problem Allergic rhinitis caused by pollen (disorder) (05501943) Allergic rhinitis due to pollen (J30.1) Active confirmed Problem Allergic rhinitis caused by animal hair and dander (480283944199357) Allergic rhinitis due to animal (cat) (dog) hair and dander (J30.81) Active confirmed Problem Allergic rhinitis (12758138) Other allergic rhinitis (J30.89) Active confirmed Problem Chronic allergic conjunctivitis (26055381) Other chronic allergic conjunctivitis (H10.45) Active confirmed Problem Chronic rhinitis (63920077) Chronic rhinitis (J31.0) Active confirmed Problem Uncomplicated moderate persistent asthma (532634232) Moderate persistent asthma, uncomplicated (J45.40) Active confirmed Problem Uncomplicated mild persistent asthma (930913979) Mild persistent asthma, uncomplicated (J45.30) Active confirmed Problem Uncomplicated severe persistent asthma (840815567) Severe persistent asthma, uncomplicated (J45.50) Active confirmed Encounters Encounter Location Date Provider Diagnosis [facility] [address] [place] [address] 12/14/2023 Mustapha Edgar Allergic rhinitis du e [...] Notes * MUNSONShiraB: [birth year] (24 yo F)Acc No.[id number]:12/14/2023 Progress Notes Patient: Karla RAMIREZ Provider: Ivette Hernández PA-C :2000 A ge:23 Y S ex:Female Date:12/14/2023 Address:[address] [place], [place] [address] Subjective: * 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 [...] 9 5004 PRICK TESTS, Units: 72.00 , 39665 INTRADERMAL TESTS, 24989 MEASURE BLOOD OXYGEN LEVEL, 95395 SELF-MGMT EDUC & TRAIN, 1 PT, S9441 ASTHMA ED NON-MD PROV PER SESSION, 18796 PT-FOCUSED HLTH RISK ASSMT, G8427 DOC MEDS [...] Information: * Visit Code: * Procedure Codes: 57230 PRICK TESTS. Units: 72.00. 94375 INTRADERMAL TESTS. 11366 MEASURE BLOOD OXYGEN LEVEL. 49796 SELF-MGMT EDUC & TRAIN, 1 PT. S9441 ASTHMA ED NON-MD PROV PER SESSION. 24070 PT-FOCUSED HLTH RISK ASSMT. G8427 DOC MEDS VERIFIED W/PT OR RE. * Electronic signature of Huber Hernández PA-C on 12/05/2024 at 09:51 AM CDT Sign off status: Pending * Provider: Ivette Hernández PA-C Date: 12/14/2023 Generated for Malou anderson/Navid/Jaja on: 12/05/2024 09:51 AM CDT History and Physical Notes * [...]
--- OUTSIDE RECORDS SUMMARY | 2024-12-05 09:51 | XMS_ITS ---
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 * Medical History: Objective: * Vitals: Assessment: Plan: * Treatment: * Billing Information: * Visit Code: * Procedure Codes: * Electronic signature of Britt Rivera DNP, FNP-C on 12/05/2024 at 09:51 AM CDT Sign off status: Pending * Provider: MADELAINE Palacios Date: 1 Generated for Printi ng/Faxing/eTransmitting on: 0 12/05/2024 09:51 AM CDT
--- OUTSIDE RECORDS SUMMARY | 2024-12-05 09:51 | XMS_ITS ---
Author Organization [facility] [place] ([address]) Address [address] [place] [address] Care Team Providers Care Landscaping Specialist Name Role Phone Britt Rivera [phone] REASON FOR VISIT Chronic upper airway symptoms concerning for uncontrolled atopic disease, Chronic lower airways symptoms concerning for possible asthma Encounters Encounter Location Date Provider Diagnosis [facility] [address] [facility] [address] [place] [address] 12/28/2023 Britt Rivera Allergic rhinitis du e [...] * Marifer MUNSONaDOB: [birth year] (24 yo F)Acc No.[id number]:12/28/2023 Progress Notes Patient: Karla RAMIREZ Provider: MADELAINE Palacios :2000 A ge:23 Y S ex:Female Date:12/28/2023 Address:[address] [place], [place] [id number] Subjective: * 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 [...] 9 5004 PRICK TESTS, Units: 72.00 , 28429 INTRADERMAL TESTS, 10137 MEASURE BLOOD OXYGEN LEVEL, 37469 SELF-MGMT EDUC & TRAIN, 1 PT, S9441 ASTHMA ED NON-MD PROV PER SESSION, 20215 PT-FOCUSED HLTH RISK ASSMT, G8427 DOC MEDS [...] Information: * Visit Code: * Procedure Codes: 40548 PRICK TESTS. Units: 72.00. 28384 INTRADERMAL TESTS. 40258 MEASURE BLOOD OXYGEN LEVEL. 48554 SELF-MGMT EDUC & TRAIN, 1 PT. S9441 ASTHMA ED NON-MD PROV PER SESSION. 78330 PT-FOCUSED HLTH RISK ASSMT. G8427 DOC MEDS VERIFIED W/PT OR RE. * Electronic signature of Britt Rivera DNP, FNP-C on 12/05/2024 at 09:51 AM CDT Sign off status: Pending * Provider: MAEDLAINE Palacios Date: 12/28/2023 Generated for Malou anderson/Navid/Jaja on: 12/05/2024 09:51 [...]
--- OUTSIDE RECORDS SUMMARY | 2024-12-05 09:51 | XMS_ITS | Patient Health Record ---
Author Organization [facility] [place] ([address]) Address [address] [place] [address] Care Team Providers Care Fur Nailer Name Role Phone Mustapha Hernández Unavailable [phone] NicoleBritt Unavailable [phone] Reason For Referral No Information Problems Problem Type SNOMED Code ICD Code Onset Dates Problem Status W/U Status Risk Notes Problem Chronic allergic conjunctivitis (40346478) Other chronic allergic conjunctivitis (H10.45) Active confirmed Problem Allergic rhinitis caused by pollen (disorder) (83547326) Allergic rhinitis due to pollen (J30.1) Active confirmed Problem Allergic rhinitis (10785836) Other allergic rhinitis (J30.89) Active confirmed Problem Chronic rhinitis (13005065) Chronic rhinitis (J31.0) Active confirmed Problem Uncomplicated mild persistent asthma (873142605) Mild persistent asthma, uncomplicated (J45.30) Active confirmed Problem Uncomplicated moderate persistent asthma (523219627) Moderate persistent asthma, uncomplicated (J45.40) Active confirmed Problem Uncomplicated severe persistent asthma (988102171) Severe persistent asthma, uncomplicated (J45.50) Active confirmed Problem Allergic rhinitis caused by animal hair and dander (583217886246190) Allergic rhinitis due to animal (cat) (dog) hair and dander (J30.81) Active confirmed Plan Of Treatment No Information Insurance Providers Payer Name Payer Address Payer Phone Subscriber Number Group Number Insured Name Patient Relationship to Insured Coverage Start Date Coverage End Date [facility] [address] [place] [address] [id number] Karla Hackett Self - patient is the insured 9
--- OUTSIDE RECORDS SUMMARY | 2024-12-05 09:51 | XMS_ITS | Clinical Summary ---
Author Organization [facility] Address [address] [place] [address] Care Team Providers Care Textiles Sales Representative Name Role Phone Unavailable Primary Care Provider [...] Vaccine (1 - 2023-2 5 season) 2024 Meningococcal Vaccine Aged Out No mojgan nalini eligible based on patient's age to complete this topic Pneumococcal Vaccine: Pediat rics (0 to 5 Years) and At-Risk Patients (6 to 49 Years) Aged Out No longer eligible b ased on patient's age to complete this topic RSV Immunizations Under 20 Months Aged Out No longer eligible based on patient's age to complete this topic
--- OUTSIDE RECORDS SUMMARY | 2024-12-05 09:51 | XMS_ITS | Data Portability ---
Author Organization [facility] [place] Address [address] [place] [address] Care Team Providers Care Digital Advertising Analyst Name Role Phone DARRIUS RIZZO Primary Care [...] Lab urinalysis , dipstick 2023 [email or web address], [address], [place], [address], 16:57:33 Referral None recorded. Procedures None recorded. [...] [phone] 25 Autho jeffry shi Provi christiano: Lamay , Lesvia C, JULIO CÉSAR Burton cted: 04/06 1643 Order ing Locat ion: [...] as clini skyler franco nted. Not Available [facility] (Lab) [address], [place], [address], 04/13/2023 10:48:58 04/06/20 23 04/06/2023 TRICH OMONA S VAGIN PRISCA (RRNA ) trichomonas vaginalis ribosomal RNA (rrna) Negati ve negati ve Not Available [facility] (Lab) [address], [place], [address], 04/13/2023 10:48:59 04/06/20 23 04/06/2023 CT/GC (OMI) , THINP REP VIAL chlamydia trachomatis, PCR Negati ve negati ve Not Available [facility] (Lab) [address], [place], [address], 04/13/2023 10:48:59 04/06/20 23 04/06/2023 CT/GC (OMI) , THINP REP VIAL neisseria gonorrhoeae, PCR Negati ve negati ve Not Available [facility] (Lab) [address], [place], [address], 04/13/2023 10:48:59 06/08/19 24 06/08/2023 VAGIN ITIS/ VAGIN OSIS, DNA PROBE hardeep sp. detection, direct probe Negati ve negati ve Not Available [facility] (Lab) [address], [place], [address], 06/09/2023 12:53:00 06/08/19 24 06/08/2023 VAGIN ITIS/ VAGIN OSIS, DNA PROBE gardnerella vag. detection, direct probe Negati ve negati ve Not Available [facility] (Lab) [address], [place], [address], 06/09/2023 12:53:00 06/08/19 24 06/08/2023 VAGIN ITIS/ VAGIN OSIS, DNA PROBE trichomonas vag. detection, direct probe Negati ve negati ve Not Available [facility] (Lab) [address], [place], [address], 06/09/2023 12:53:00 06/08/19 24 06/08/2023 urina lysis , dipst ick pH 5 Not Available [place] [address], [place], [address], 06/08/2023 16:57:16 06/08/19 24 06/08/2023 urina lysis , dipst ick Specific [place] 1.010 Not Available [facility] [address], [place], [address], 06/08/2023 16:57:16 Result Notes None recorded. Procedures Surgical History Date Name Laterality Status Provider Name and Address Organization Details Recorded Time 04/06/20 Date of Last Pap Smear completed Carmen Thibodeaux [facility] 06/08/2023 16:42:19 Tonsillectomy completed [facility] 04/06/2023 16:46:04 Imaging Results None recorded. Procedure Notes None recorded. Medical Equipment None Reported. Allergies Allergen ID Allergen Name Allergen Category Reaction Reaction Severity Criticality Documentation Date Start Date Code Code System Note Provider Name and Address Organization Details Recorded Time 16994 Penicilli n Not available swelling moderate Not available 04/06/2023 61635 RxNorm [facility] 16:45:42 Medications Name Sig Start Date Stop Date Status Note LastModified by Organization Details LastModified Time prednisone 10 mg tablet PLEASE SEE ATTACHED FOR DETAILED DIRECTION S 11/21 /2023 completed Not Available Not Available Not Available [...] Available Not Available Vitals Date Recorded Body height Body mass index (BMI) Body weight Systolic And Diastolic Provider Name and Address Organization Details Last Updated DateTime 06/08/2023 167.64 cm 43.3 kg/m2 123097.76 g 120/80 mm[Hg] Carmen Thibodeaux [facility] 06/08/2023 16:45:07 Date Recorded Body weight Body mass index (BMI) Body height Systolic And Diastolic Provider Name and Address Organization Details Last Updated DateTime 04/06/2023 540161.76 g 43.3 kg/m2 167.64 cm 111/72 mm[Hg] Laureen Quintin [facility] 04/06/2023 16:48:06 Social History Question Answer Notes LastModified by Organizat ion Details LastModified Time Tobacco Smoking Status Never Smoker [facility] 04/06/2023 16:53:13 How Many Years Have [...] Or The Highest Degree You Have Received? [id number] Information not available 04/06/2023 Are There Any [...] anxious, or unable to sleep at night)? [id number] Information not available 04/06/2023 Family History Relationship [...] SNOMED-CT Code Diagnosis ICD10 Code Diagnosis Note [id number] Les[facility] [address] [address] 04/06/2023 16:29:43 04/07/2023 09:49:52 Gynecologic examination 09033928 Z01.419 Z11.3 Z11.8 WWEBC - condomsdis cussed [...] paper copy of today's plan if desired. [facility] ion care management 700990112 Z30.9 [id number] Stacia Kee [facility] [address] [address] 06/08/2023 16:36:59 06/09/2023 15:55:40 Urinary symptoms 224295374 R39.9 Vaginitis 54625795 N76.0 Today we agreed to await return [...] Member ID Mcintosh Member ID Guarantor Name 02/11/2024 3 *SELF PAY* Emir [place] 08/31/2023 1 [employer] [id number] Roberto K Jakob [id number] Karla Hackett 08/31/2023 2 [facility] - DOS ON OR AFTER 20 (MEDICAID REPLACEMENT - HMO) Karla Hackett [id number] Karla Hackett 08/19/2023 3 MEDICAID-[place]: [place] [employer] [place] PUBLIC [employer] Karla Hackett [id number] Karla Hackett Notes Date Note Type Note [...] C deficiency GUSTAVO Damon [address], [place], [address], [facility] 04/07/2023 09:37:57 06/08/2023 text/html Karla is a 22y o reproductive age female who is here today for vaginal odor. She expresses that this will be a random issue.No other sx's other than some dysuria. Neg pain of abd/pelvis/flankNe g urinary sx's except dysuriaNeg GI sx'sNeg N/V/F/C/DNeg Vag d/c,, irritation, itching Stacia Kee, [facility]- [address], [place], [address], [facility] 06/09/2023 14:46:46 OBGyn Episode No OBEpisode recorded.
[2024-12-05 10:28] LABS: Add Urine Microscopic? YES; Appearance Urine Clear (Clear); Glucose Urine UA Negative (Negative); Leukocyte Esterase Ur Negative (Negative); Nitrate Urine Negative (Negative); Specific Grav Ur 1.015 (1.010-1.020)
[2024-12-05 10:31] LABS: Hematocrit 39.4 % (35.0-49.0); Hemoglobin 12.5 g/dL (12.0-15.0); Mean Corpuscular HGB Conc 31.7 g/dL (32-36); Mean Corpuscular Hemoglobin 26.5 pg (27.0-31.0); Mean Corpuscular Volume 83.5 fL (78.0-102.0); Platelet Count Result 317 K/mm3 (150-420); Red Blood Count 4.72 M/mm3 (4.20-5.40); White Blood Count 6.1 K/mm3 (4.8-10.8)
[2024-12-05 10:50] LABS: Hemoglobin A1C 5.2 % (<5.7)
[2024-12-05 11:09] LABS: Alanine Aminotransferase 15 U/L (6-35); Albumin Level 4.0 g/dL (3.5-5.1); Alkaline Phosphatase 80 U/L (38-126); Anion Gap 5 mmol/L (4-12); Aspartate Amino Transferase 23 U/L (14-36); Bilirubin,Total 0.4 mg/dL (0.2-1.3); Blood Urea Nitrogen 10 mg/dL (7-17); Calcium 8.6 mg/dL (8.4-10.2); Carbon Dioxide 25 mmol/L (22-30); Chloride 107 mmol/L (98-107); Cholesterol 181 mg/dL (0-200); Estimated Glomerular Filt Rate > 60; Glucose 91 mg/dL (65-110); HDL Direct 38 mg/dL; Osmolality Calculated 283 mOsm/kg (285-295); Potassium 4.9 mmol/L (3.4-5.0); Sodium 137 mmol/L (137-145); Total Protein 6.5 g/dL (6.3-8.2); Triglycerides 136 mg/dL (<150)
[2024-12-05 11:39] LABS: Thyroid Stimulating Hormone 3.570 uIU/mL (0.465-4.680)
== END 2024-12-05 09:45 | disposition home or self-care (01) ==
LOC: CHSLAB 09:47
PROVIDERS: PCP Internal Medicine; Visit Provider Internal Medicine
DX: D68.59 Other primary thrombophilia (principal); R63.1 Polydipsia; E66.9 Obesity, unspecified
CPT/HCPCS: 36415; 80053; 80061; 81001; 83036; 84443; 85027; 85303

== ENCOUNTER 2024-12-23 23:07 | Emergency (ER) | payer BC, OTHER, SELFPAY ==
--- NOTE | ~2024-12-23 | CT_ITS ---
EXAMINATION: CT abdomen pelvis w con DATE: 12/24/2024 00:47 INDICATION: Left lower abdominal pain and pelvic pain. Ovarian cyst. TECHNIQUE: Computed tomography (CT) of the abdomen and pelvis was performed with 100 mL Omnipaque-350 intravenous contrast. Automated exposure control and iterative reconstruction technique were employe d. The dose-length product was 1641.58 mGy-cm. COMPARISON: None FINDINGS: Calcified left lower lobe nodules consistent with old granulomatous disease. Heart size is normal. No pericardial or pleural effusion. Focal hepatic steatosis along the ligamentum teres. Gallbladder, sp shannon, pancreas, bilateral adrenal glands and kidneys are normal. Bladder is normal. T-shaped IUD in e xpected position within the anteverted uterus. 2.4 cm peripherally enhancing likely corpus luteum cys t at the right ovary. Left ovary is unremarkable. Bowels including the appendix are normal. No free i ntraperitoneal gas or fluid. No pathologically enlarged abdominal or pelvic lymphadenopathy. Moderate lower thoracic and mild lumbar spondylosis. IMPRESSION: 1. No acute intra-abdominal/pelvic process. 2. IUD in expected position and 2.8 cm left ovarian likely corpus luteum cyst. Reviewed, dictated and finalized at location A.
[2024-12-23 23:07] VITALS: BP 161/111; PULSE 79; RESP 20; TEMP 36.8; O2SAT 100
--- NOTE | 2024-12-23 23:09 | ED.ABDPAIN ---
HPI - Abdominal Pain General Chief Complaint: Abdominal Pain Stated Complaint: LOW ABDOMINAL PAIN Time Seen by Provider: 12/23/24 23:08 Source: patient Mode of arrival: ambulatory Limitations: no limitations History of Present Illness HPI narrative: Patient is a 24-year-old female with bilateral lower pelvic pains for the past week. She had an IUD placed in July and further had multiple cysts on her ovaries which required surgical intervention in September. This was all this year. Her pain is got worse today and specifically in the midline suprapubic region and right lower quadrant. MD elicited complaint: abdominal pain Pertinent past history: other ( Ovarian cysts, IUD) Onset (ago): week(s) ( 1) Pain Consistency: intermittent Location: RLQ, LLQ, suprapubic, pelvis and groin ( bilateral) Severity: moderate Pain scale (0-10): 5 Quality: stabbing and sharp Radiation: none Migration to: no migration Exacerbating factors: nothing Relieving factors: nothing Context: confirms recent surgery/procedure ( ovarian cysts removal bilateral ovaries September 2024) Associated symptoms: nausea and vomiting Treatments prior to arrival: other ( none) Related Data Home Medications ?Medication ?Instructions ?Recorded ?Confirmed ?Last Taken ?Type famotidine 40 mg tablet 40 mg PO DAILY 10/14/23 12/01/24 10/05/24 History levetiracetam 500 mg 500 mg PO DAILY 10/14/23 12/01/24 10/05/24 History tablet,extended release 24 hr (Keppra XR) propranolol 120 mg capsule,24 120 mg PO DAILY 10/14/23 12/01/24 10/05/24 23:30 History hr,extended release montelukast 10 mg tablet 10 mg PO DAILY 12/23/23 12/01/24 10/05/24 History lactobacillus combination no.4 3 3,000 mmu cells PO DAILY 12/29/23 12/01/24 09/08/24 History billion cell capsule (Probiotic) multivitamin 1 tablet PO DAILY 12/29/23 12/01/24 09/22/24 History escitalopram oxalate 5 mg tablet 5 mg PO HS 10/06/24 12/01/24 10/05/24 History albuterol sulfate 90 mcg/actuation inhalation 12/01/24 12/01/24 Unknown History aerosol inhaler Allergies Allergy/AdvReac Type Severity Reaction Status Date / Time Penicillins Allergy Severe facial Verified 12/23/24 23:08 swelling Review of Systems Review of Systems: All systems reviewed & are unremarkable except as noted in HPI and below Constitutional: Constitutional: Reports no additional constitutional complaints Eyes: Eyes: Reports no additional eye complaints ENT: Reports system reviewed and no additional complaints, except as documented Cardiovascular: Cardiovascular: Reports no additional cardiovascular complaints Respiratory: Respiratory: Reports no additional respiratory complaints Gastrointestinal: Gastrointestinal: Reports no additional gastrointestinal complaints Genitourinary: Genitourinary: Reports no additional female genitourinary complaints Musculoskeletal: Musculoskeletal: Reports no additional musculoskeletal complaints Integumentary/Breasts: Skin/Breast: Reports system reviewed and no additional complaints, except as docu Neurologic: Reports system reviewed and no additional complaints, except as documented Psychiatric: Psychiatric: Reports no additional psychiatric complaints Endocrine: Endocrine: Reports no additional endocrine complaints Hematologic/Lymphatic: Hematologic/Lymphatic: Reports no additional hematologic/lymphatic complaints Allergic/Immunologic: Allergic/Immunologic: Reports no additional allergic/immunologic complaints PMFSH Past Medical History Medical History Morbid obesity History of sinus tachycardia Protein C deficiency Surgical History Surgical History H/O ovarian cystectomy History of tonsillectomy Family History Family History Father Cerebrovascular accident Tachycardia Social History Social History Smoking status: Never smoker Alcohol intake: current Alcohol use details: 6 PER YEAR Substance use: never Substance use type: does not use Lack of Transportation: No Lack of Food: Never True Current Housing: I Have Housing Concerned About Future Housing: No Difficulty Paying Gas/Electric Bills: No Difficulty Paying for Meds: No Currently Unemployed: No Education: High School Diploma/GED Difficulty w/ Childcare or Family Care: No Living arrangements: with family Occupation/Education: occupation Additional occupation/education comments: [employer] office - [place] Gender identity (if verbalized by the patient): Female Sexual Orientation (if Verbalized by the Patient): Straight or Heterosexual Spiritual care concerns: No Exam Const: General: healthy appearing Nutritional Appearance: well nourished Orientation/consciousness: patient oriented x3 Limitations: no limitations HENMT: Head: normal to inspection Ears: external ears normal Face/Nose/Sinus: Normal external nose present Eyes: Conjunctivae: conjunctivae normal Pupils: Equal, round and reactive pupils present EOM: EOMs intact bilaterally Neck: Neck: normal visual inspection Chest: Chest palpation & inspection: normal inspection of the chest Resp: Effort & Inspection: normal respiratory effort and not labored Auscultation: clear to auscultation bilaterally and no crackles Cardio: Rate: regular rate Rhythm: regular rhythm Heart sounds: no murmurs GI: Inspection: non-distended GI Palp: Yes Soft to palpation, Yes Tenderness to palpation present (GI) ( bilateral lower quadrants and suprapubic region), No Guarding due to palpation present (GI), No Rigid due to palpation, No Hernia present, No Palpable mass present and Yes Rebound tenderness present Auscultation: Hypoactive bowel sounds present : General: No bladder normal to palpation ( tender) Back/Spine/Pelvis: Back: no CVA tenderness Skin: General skin exam: normal color Rashes: no rashes Wounds: no wounds Neuro: General: patient oriented x3, moves all extremities and no meningeal signs Extrem: General: normal to inspection, no clubbing, cyanosis or edema and no pedal edema Psych: Mental Status: mental status grossly normal Affect: normal affect Attitude: cooperative Course Vital Signs Vital signs: Vital Signs Temperature 36.8 C 12/23/24 23:07 Pulse Rate 79 12/23/24 23:07 Respiratory Rate 20 12/23/24 23:07 Blood Pressure 161/111 H 12/23/24 23:07 Pulse Oximetry 100 12/23/24 23:07 Oxygen Delivery Room Air 12/23/24 23:07 Temperature 36.8 C 12/23/24 23:07 Pulse Rate 79 12/23/24 23:07 Respiratory Rate 20 12/23/24 23:07 Blood Pressure 161/111 H 12/23/24 23:07 Pulse Oximetry 100 12/23/24 23:07 Oxygen Delivery Room Air 12/23/24 23:07 MDM - Abdominal Pain MDM Narrative Medical decision making narrative: patient is a 24-year-old female with bilateral lower abdomen and pelvic/ groin pain for the past week. She had a ovarian cysts surgery in September and IUD in July. We will do a GI/ workup at this time. Lab Data Attestation: I reviewed the patient's lab results. 12/23/24 23:19 12/23/24 23:19 Labs: Lab Results 12/23/24 12/23/24 12/24/24 Range/Units 23:19 23:20 01:42 WBC 9.8 (4.8-10.8) K/mm3 RBC 4.65 (4.20-5.40) M/mm3 Hgb 12.4 (12.0-15.0) g/dL Hct 39.5 (35.0-49.0) % MCV 84.9 (78.0-102.0) fL MCH 26.7 L (27.0-31.0) pg MCHC 31.4 L (32-36) g/dL RDW 12.8 (11.6-14.4) % Plt Count 343 (150-420) K/mm3 MPV 10.9 (9.2-11.8) fl Immature Gran % (Auto) 0.8 H (0.0-0.0) % Neut % (Auto) 48.0 L (50.0-70.0) % Lymph % (Auto) 39.9 (18.0-42.0) % Coles % (Auto) 8.6 (2.0-11.0) % Eos % (Auto) 1.9 (1.0-6.0) % Baso % (Auto) 0.8 (0.0-1.0) % Lymph # (Auto) 3.93 (1.10-4.50) K/mm3 [place]es # (Auto) 0.85 (0.10-0.90) K/mm3 Eos # (Auto) 0.19 (0.02-0.50) K/mm3 Baso # (Auto) 0.08 (0.00-0.10) K/mm3 Abs Immat Gran (auto) 0.08 H (0.00-0.00) K/mm3 Absolute Neuts (auto) 4.71 (1.70-7.20) K/mm3 Absolute Nucleated RBC 0.00 (0.00-0.00) K/mm3 Nucleated RBC % 0.0 (0-0.0) % PT 10.8 (9.50-12.1) Seconds INR 1.0 APTT 31.4 H (23.9-30.70) Sec Sodium 137 (137-145) mmol/L Potassium 3.9 (3.4-5.0) mmol/L Chloride 103 (98-107) mmol/L Carbon Dioxide 26 (22-30) mmol/L Anion Gap 8 (4-12) mmol/L BUN 14 (7-17) mg/dL Creatinine 0.77 (0.7-1.0) mg/dL Estim Creat Clear Calc 96 ml/min Estimated GFR > 60 (59 - ) Glucose 91 (65-110) mg/dL Calculated Osmolality 284 L (285-295) mOsm/kg Lactic Acid 0.7 (0.4-2.0) mmol/L Calcium 9.1 (8.4-10.2) mg/dL Total Bilirubin 0.3 (0.2-1.3) mg/dL AST 23 (14-36) U/L ALT 15 (6-35) U/L Alkaline Phosphatase 91 (38-126) U/L Total Protein 7.1 (6.3-8.2) g/dL Albumin 4.4 (3.5-5.1) g/dL Lipase Cancelled 64 Urine Color Light yellow (Yellow) Urine Appearance Clear (Clear) Urine pH 6.0 (5.0-8.0) Ur Specific [place] 1.020 (1.010-1.020) Urine Protein Negative (Negative) Urine Glucose (UA) Negative (Negative) Urine Ketones Negative (Negative) Ur Blood (Man) Negative (Negative) Urine Nitrate Negative (Negative) Urine Bilirubin Negative (Negative) Urine Urobilinogen 0.2 (0.2-1.0) mg/dL Leukocyte Esterase Rfl Negative (Negative) MEENA/UL Urine Test Negative Imaging Data Attestation: I personally reviewed and interpreted this imaging study as follows: Radiologist's impression: CT scan of the abdomen and pelvis with contrast shows no acute process Discharge Plan Discharge Clinical Impression: Pelvic pain Patient Disposition: Home Condition: Stable Instructions: Pelvic Pain (ED) Additional Instructions: Please follow-up with the primary doctor in the next week. Please get a pelvic ultrasound in the next week to study the female structures. Patient Language: Amharic Prescriptions: No Action ondansetron 4 mg tablet,disintegrating 4 mg PO Q8H Qty: 10 0RF Patient Comments: I have no idea levetiracetam [Keppra XR] 500 mg tablet extended release 24 hr 500 mg PO DAILY Patient Comments: Says takes at HS famotidine 40 mg tablet 40 mg PO DAILY Patient Comments: Says takes at HS propranolol 120 mg capsule,extended release 24hr 120 mg PO DAILY Patient Comments: Says takes at HS montelukast 10 mg tablet 10 mg PO DAILY Patient Comments: Says takes at HS albuterol sulfate 90 mcg/actuation HFA aerosol inhaler inhalation methylprednisolone [Medrol ([place])] 4 mg tablets,dose pack See Rx Instructions PO .COMPLEX Qty: 21 0RF Rx Instructions: Take the days dose as a single dose in the am. Example, day one, take all 6 tablets in the am. Day 2, take all 5 tablets in the am. escitalopram oxalate 5 mg tablet 5 mg PO HS multivitamin Tablet 1 tablet PO DAILY Patient Comments: Says takes at HS Probiotic 3 billion cell Capsule 3,000 mmu cells PO DAILY Patient Comments: Says takes at HS Rx Instructions: administer with a meal Follow-up/Referrals: Dominik Wilde MD [Primary Care Provider] - Time of Disposition: 02:22
--- NOTE | 2024-12-23 23:09 | PC.NURSE ---
PATIENT AMBULATED TO THE BATHROOM TO GIVE URINE SAMPLE
--- OUTSIDE RECORDS SUMMARY | 2024-12-23 23:10 | XMS_ITS ---
Author Organization Formerly [facility] [place] ([address]) Address [address] [place] [address] Care Team Providers Care Materials Planning Manager Name Role Phone Mustapha Hernández Unavailable [phone] REASON FOR VISIT Chronic upper airway symptoms concerning for uncontrolled atopic disease, Chronic lower airways symptoms concerning for possible asthma Problems Problem Type SNOMED Code ICD Code Onset Dates Problem Status W/U Status Risk Notes Problem Allergic rhinitis caused by pollen (disorder) (30276850) Allergic rhinitis due to pollen (J30.1) Active confirmed Problem Allergic rhinitis caused by animal hair and dander (009472612201196) Allergic rhinitis due to animal (cat) (dog) hair and dander (J30.81) Active confirmed Problem Allergic rhinitis (54744381) Other allergic rhinitis (J30.89) Active confirmed Problem Chronic allergic conjunctivitis (95493702) Other chronic allergic conjunctivitis (H10.45) Active confirmed Problem Chronic rhinitis (20309951) Chronic rhinitis (J31.0) Active confirmed Problem Uncomplicated moderate persistent asthma (172442929) Moderate persistent asthma, uncomplicated (J45.40) Active confirmed Problem Uncomplicated mild persistent asthma (658555592) Mild persistent asthma, uncomplicated (J45.30) Active confirmed Problem Uncomplicated severe persistent asthma (359074105) Severe persistent asthma, uncomplicated (J45.50) Active confirmed Encounters Encounter Location Date Provider Diagnosis [facility] [address] [facility] [address] [place] [address] 12/14/2023 Mustapha Edgar Allergic rhinitis du e [...] Notes * MUNSONShiraB: [birth year] (24 yo F)Acc No.[id number]:12/14/2023 Progress Notes Patient: Kalra RAMIREZ Provider: Ivette Hernández PA-C :2000 A ge:23 Y S ex:Female Date:12/14/2023 Address:[address] [place], [place] [address] Subjective: * 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 [...] 9 5004 PRICK TESTS, Units: 72.00 , 67302 INTRADERMAL TESTS, 26543 MEASURE BLOOD OXYGEN LEVEL, 60455 SELF-MGMT EDUC & TRAIN, 1 PT, S9441 ASTHMA ED NON-MD PROV PER SESSION, 72729 PT-FOCUSED HLTH RISK ASSMT, G8427 DOC MEDS [...] Information: * Visit Code: * Procedure Codes: 65885 PRICK TESTS. Units: 72.00. 03472 INTRADERMAL TESTS. 44697 MEASURE BLOOD OXYGEN LEVEL. 20639 SELF-MGMT EDUC & TRAIN, 1 PT. S9441 ASTHMA ED NON-MD PROV PER SESSION. 51087 PT-FOCUSED HLTH RISK ASSMT. G8427 DOC MEDS VERIFIED W/PT OR RE. * Electronic signature of Huber Hernández PA-C on 12/23/2024 at 11:10 PM CDT Sign off status: Pending * Provider: Ivette Hernández PA-C Date: 0 12/14/2023 Generated for Malou anderson/Navid/Jaja on: 12/23/2024 11:10 PM CDT History and Physical Notes * [...]
--- OUTSIDE RECORDS SUMMARY | 2024-12-23 23:10 | XMS_ITS | Clinical Summary ---
Author Organization [facility] Address [address] [place] [address] Care Team Providers Care Agricultural Commodities Grader Name Role Phone Unavailable Primary Care Provider [...]
--- OUTSIDE RECORDS SUMMARY | 2024-12-23 23:10 | XMS_ITS ---
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 * Medical History: Objective: * Vitals: Assessment: Plan: * Treatment: * Billing Information: * Visit Code: * Procedure Codes: * Electronic signature of Britt Rivera DNP, FNP-C on 12/23/2024 at 11:09 PM CDT Sign off status: Pending * Provider: MADELAINE Palacios Date: 1 Generated for Printi ng/Faxing/eTransmitting on: 0 12/23/2024 11:09 PM CDT
--- OUTSIDE RECORDS SUMMARY | 2024-12-23 23:10 | XMS_ITS ---
Author Organization [facility] [place] ([address]) Address [address] [place] [address] Care Team Providers Care Gastroenterology Nurse Practitioner Name Role Phone Britt Rivera [phone] REASON FOR VISIT Chronic upper airway symptoms concerning for uncontrolled atopic disease, Chronic lower airways symptoms concerning for possible asthma Encounters Encounter Location Date Provider Diagnosis [facility] [address] [facility] [address] [place] [address] 12/28/2023 Britt Rivera Allergic rhinitis du e [...] * Marifer MUNSONaDOB: [birth year] (24 yo F)Acc No.[id number]:12/28/2023 Progress Notes Patient: Karla RAMIREZ Provider: MADELAINE Palacios :2000 A ge:23 Y S ex:Female Date:12/28/2023 Address:[address] [place], [place] [address] Subjective: * 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 [...] 9 5004 PRICK TESTS, Units: 72.00 , 32644 INTRADERMAL TESTS, 92561 MEASURE BLOOD OXYGEN LEVEL, 20996 SELF-MGMT EDUC & TRAIN, 1 PT, S9441 ASTHMA ED NON-MD PROV PER SESSION, 49069 PT-FOCUSED HLTH RISK ASSMT, G8427 DOC MEDS [...] Information: * Visit Code: * Procedure Codes: 70173 PRICK TESTS. Units: 72.00. 78628 INTRADERMAL TESTS. 62946 MEASURE BLOOD OXYGEN LEVEL. 45807 SELF-MGMT EDUC & TRAIN, 1 PT. S9441 ASTHMA ED NON-MD PROV PER SESSION. 79170 PT-FOCUSED HLTH RISK ASSMT. G8427 DOC MEDS VERIFIED W/PT OR RE. * Electronic signature of Britt Rivera DNP, FNP-C on 12/23/2024 at 11:10 PM CDT Sign off status: Pending * Provider: MADELAINE Palacios Date: 12/28/2023 Generated for Malou anderson/Navid/Jaja on: 12/23/2024 11:10 [...]
--- OUTSIDE RECORDS SUMMARY | 2024-12-23 23:10 | XMS_ITS | Patient Health Record ---
Author Organization [facility] [place] ([address]) Address [address] [place] [address] Care Team Providers Care Training Associate Name Role Phone Britt Rivera Unavailable [phone] Reason For Referral No Information Problems Problem Type SNOMED Code ICD Code Onset Dates Problem Status W/U Status Risk Notes Problem Chronic allergic conjunctivitis (51025533) Other chronic allergic conjunctivitis (H10.45) Active confirmed Problem Allergic rhinitis caused by pollen (disorder) (16725830) Allergic rhinitis due to pollen (J30.1) Active confirmed Problem Allergic rhinitis (29152691) Other allergic rhinitis (J30.89) Active confirmed Problem Chronic rhinitis (62383087) Chronic rhinitis (J31.0) Active confirmed Problem Mild persistent asthma, uncomplicated (J45.30) Active confirmed Problem Uncomplicated moderate persistent asthma (095006378) Moderate persistent asthma, uncomplicated (J45.40) Active confirmed Problem Uncomplicated severe persistent asthma (817052165) Severe persistent asthma, uncomplicated (J45.50) Active confirmed Problem Allergic rhinitis caused by animal hair and dander (732096789323137) Allergic rhinitis due to animal (cat) (dog) hair and dander (J30.81) Active confirmed Plan Of Treatment No Information Insurance Providers Payer Name Payer Address Payer Phone Subscriber Number Group Number Insured Name Patient Relationship to Insured Coverage Start Date Coverage End Date [facility] [address] [place] [address] [phone] [id number] Karla Hackett Self - patient is the insured 9
--- NOTE | 2024-12-23 23:15 | PC.NURSE ---
DR STORM AT THE BEDSIDE
--- OUTSIDE RECORDS SUMMARY | 2024-12-23 23:56 | XMS_ITS | Clinical Summary ---
Author Organization [facility] Address [address] [place] [address] Care Team Providers Care Irrigation System Installer Name Role Phone Unavailable Primary Care Provider [...]
--- NOTE | 2024-12-24 | PC.NURSE ---
RESTING QUIETLY ON STRETCHER. PATIENT HAS AMBULATED TO THE BATHROOM AND BACK SEVERAL TIMES. CALL LIGHT IN REACH.
[2024-12-24 00:06] LABS: Alanine Aminotransferase 15 U/L (6-35); Albumin Level 4.4 g/dL (3.5-5.1); Alkaline Phosphatase 91 U/L (38-126); Anion Gap 8 mmol/L (4-12); Aspartate Amino Transferase 23 U/L (14-36); Bilirubin,Total 0.3 mg/dL (0.2-1.3); Blood Urea Nitrogen 14 mg/dL (7-17); Calcium 9.1 mg/dL (8.4-10.2); Carbon Dioxide 26 mmol/L (22-30); Chloride 103 mmol/L (98-107); Estimated CRCL calculation 96 ml/min; Estimated Glomerular Filt Rate > 60; Glucose 91 mg/dL (65-110); Osmolality Calculated 284 mOsm/kg (285-295); Potassium 3.9 mmol/L (3.4-5.0); Sodium 137 mmol/L (137-145); Total Protein 7.1 g/dL (6.3-8.2)
[2024-12-24 00:07] LABS: Add Urine Microscopic? NO; Appearance Urine Clear (Clear); Glucose Urine UA Negative (Negative); Leukocyte Esterase Ur Negative LEU/UL (Negative); Nitrate Urine Negative (Negative); Specific Grav Ur 1.020 (1.010-1.020)
[2024-12-24 00:11] LABS: INR 1.0; Partial Thromboplastin Time 31.4 Sec (23.9-30.70); Prothrombin Time 10.8 Seconds (9.50-12.1)
[2024-12-24 00:14] LABS: Pregnancy On Board Control Positive
--- NOTE | 2024-12-24 01:00 | PC.NURSE ---
PATIENT IS RESTING ON STRETCHER. BOYFRIEND AT THE BEDSIDE. NO NEEDS VOICED. CALL LIGHT IN REACH
[2024-12-24 01:09] LABS: Hematocrit 39.5 % (35.0-49.0); Hemoglobin 12.4 g/dL (12.0-15.0); Immature Granulocyte Percent A 0.8 % (0.0-0.0); Lymphocytes Absolute Auto 3.93 K/mm3 (1.10-4.50); Mean Corpuscular HGB Conc 31.4 g/dL (32-36); Mean Corpuscular Hemoglobin 26.7 pg (27.0-31.0); Mean Corpuscular Volume 84.9 fL (78.0-102.0); Nucleated Red Blood Cells Absolute Auto 0.00 K/mm3 (0.00-0.00); Nucleated Red Blood Cells Perc 0.0 % (0-0.0); Platelet Count Result 343 K/mm3 (150-420); Red Blood Count 4.65 M/mm3 (4.20-5.40); White Blood Count 9.8 K/mm3 (4.8-10.8)
--- NOTE | 2024-12-24 01:44 | PC.NURSE ---
NEW LIPASE DRAWN AND TAKEN TO LAB
--- NOTE | 2024-12-24 02:00 | PC.NURSE ---
PATIENT IS CURRENTLY RESTING ON STRETCHER. BOYFRIEND AT HER SIDE. CURRENTLY WAITING ON LIPASE TO RESULT. DENIES ANY NEEDS. PATIENT HAS AMBULATED TO THE BATHROOM AND BACK TO ROOM WITHOUT DIFFICULTY
[2024-12-24 02:04] LABS: Lipase 64 U/L (23-300)
[2024-12-24 02:28] VITALS: BP 152/84; PULSE 88; RESP 20; O2SAT 100
== END 2024-12-24 02:28 | disposition home or self-care (01) ==
PROVIDERS: Emergency Provider Emergency Medicine; PCP Internal Medicine
DX: R10.2 Pelvic and perineal pain (principal)
CPT/HCPCS: 36415; 74177; 80053; 81003; 81025; 83605; 83690; 85025; 85610; 85730; 99284; Q9967

== ENCOUNTER 2025-04-08 15:55 | Emergency (ER) | payer BC, OTHER, SELFPAY ==
--- OUTSIDE RECORDS SUMMARY | 2023-12-14 11:30 | XMS_ITS ---
Author Organization [facility] [place] ([address]) Address [address] [place] [address] Care Team Providers Care Front Office Agent Name Role Phone Mustapha Hernández Unavailable [phone] REASON FOR VISIT Chronic upper airway symptoms concerning for uncontrolled atopic disease, Chronic lower airways symptoms concerning for possible asthma Problems Problem Type SNOMED Code ICD Code Onset Dates Problem Status W/U Status Risk Notes Problem Allergic rhinitis caused by pollen (disorder) (54144604) Allergic rhinitis due to pollen (J30.1) Active confirmed Problem Allergic rhinitis caused by animal hair and dander (209398527133494) Allergic rhinitis due to animal (cat) (dog) hair and dander (J30.81) Active confirmed Problem Allergic rhinitis (39700211) Other allergic rhinitis (J30.89) Active confirmed Problem Chronic allergic conjunctivitis (92269123) Other chronic allergic conjunctivitis (H10.45) Active confirmed Problem Chronic rhinitis (71014851) Chronic rhinitis (J31.0) Active confirmed Problem Uncomplicated moderate persistent asthma (208992278) Moderate persistent asthma, uncomplicated (J45.40) Active confirmed Problem Uncomplicated mild persistent asthma (945980082) Mild persistent asthma, uncomplicated (J45.30) Active confirmed Problem Uncomplicated severe persistent asthma (128618441) Severe persistent asthma, uncomplicated (J45.50) Active confirmed Encounters Encounter Location Date Provider Diagnosis [facility] [address] [facility] [address] [place] [address] 12/14/2023 Mustapha Edgar Allergic rhinitis du e [...] Notes * MUNSONShiraB: 002 (24 yo F)Acc No.[id number]:12/14/2023 Progress Notes Patient: Karla RAMIREZ Provider: Ivette Hernández PA-C :2000 A ge:23 Y S ex:Female Date:12/14/2023 Address:[address] [place], [place] [address] Subjective: * 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 [...] 9 5004 PRICK TESTS, Units: 72.00 , 55587 INTRADERMAL TESTS, 94549 MEASURE BLOOD OXYGEN LEVEL, 37405 SELF-MGMT EDUC & TRAIN, 1 PT, S9441 ASTHMA ED NON-MD PROV PER SESSION, 73201 PT-FOCUSED HLTH RISK ASSMT, G8427 DOC MEDS [...] Information: * Visit Code: * Procedure Codes: 15160 PRICK TESTS. Units: 72.00. 44145 INTRADERMAL TESTS. 55939 MEASURE BLOOD OXYGEN LEVEL. 74799 SELF-MGMT EDUC & TRAIN, 1 PT. S9441 ASTHMA ED NON-MD PROV PER SESSION. 82161 PT-FOCUSED HLTH RISK ASSMT. G8427 DOC MEDS VERIFIED W/PT OR RE. * Electronic signature of Huber Hernández PA-C on 04/08/2025 at 03:57 PM PAUNCH TRIMMER Sign off status: Pending * Provider: Ivette Hernández PA-C Date: 0 12/14/2023 Generated for Malou anderson/Navid/Jaja on: 06/08/2024 03:57 PM PAUNCH TRIMMER History and Physical Notes * HPI (History [...]
--- OUTSIDE RECORDS SUMMARY | 2023-12-28 11:30 | XMS_ITS ---
Author Organization [facility] [place] ([address]) Address [address] [place] [address] Care Team Providers Care Quality Assurance Manager Name Role Phone Britt Rivera [phone] REASON FOR VISIT Chronic upper airway symptoms concerning for uncontrolled atopic disease, Chronic lower airways symptoms concerning for possible asthma Encounters Encounter Location Date Provider Diagnosis [facility] [address] [facility] [address] [place] [address] 12/28/2023 Britt Rivera Allergic rhinitis du e [...] * Marifer MUNSONaDOB: [birth year] (24 yo F)Acc No.[id number]:12/28/2023 Progress Notes Patient: aKrla RAMIREZ Provider: MDAELAINE Palacios :2000 A ge:23 Y S ex:Female Date:12/28/2023 Address:[address] [place], [place] [id number] Subjective: * 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 [...] 9 5004 PRICK TESTS, Units: 72.00 , 67846 INTRADERMAL TESTS, 47142 MEASURE BLOOD OXYGEN LEVEL, 13622 SELF-MGMT EDUC & TRAIN, 1 PT, S9441 ASTHMA ED NON-MD PROV PER SESSION, 16921 PT-FOCUSED HLTH RISK ASSMT, G8427 DOC MEDS [...] Information: * Visit Code: * Procedure Codes: 81388 PRICK TESTS. Units: 72.00. 08970 INTRADERMAL TESTS. 95477 MEASURE BLOOD OXYGEN LEVEL. 23443 SELF-MGMT EDUC & TRAIN, 1 PT. S9441 ASTHMA ED NON-MD PROV PER SESSION. 34561 PT-FOCUSED HLTH RISK ASSMT. G8427 DOC MEDS VERIFIED W/PT OR RE. * Electronic signature of Britt Rivera DNP, FNP-C on 04/08/2025 at 03:57 PM GAMING DEALER Sign off status: Pending * Provider: MADELAINE Palacios Date: 0 12/28/2023 Generated for Malou anderson/Navid/Rondasmbenedicto on: 1 06/08/2024 03:57 PM GAMING DEALER History and Physical Notes * HPI (History [...]
--- OUTSIDE RECORDS SUMMARY | 2024-02-15 11:30 | XMS_ITS ---
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 * Medical History: Objective: * Vitals: Assessment: Plan: * Treatment: * Billing Information: * Visit Code: * Procedure Codes: * Electronic signature of Britt Rivera DNP, FNP-C on 04/08/2025 at 03:57 PM [employer]ATOR [employer] Sign off status: Pending * Provider: MADELAINE Palacios Date: Generated for Printi ng/Faxing/eTransmitting on: 06/08/2024 03:57 PM [employer]
--- NOTE | ~2025-04-08 | XR_ITS ---
EXAMINATION: XR chest 2V, 04/08/2025 16:35 VISUAL SPECIALIST HISTORY: cough/ congestion/ SOB x2 days; worsening. COMPARISON: No comparisons available. Technique: 2 views obtained. Findings: The lungs are clear, no effusion. No pneumothorax. Heart is normal size. Mediastinal and hilar contours are within normal limits. Bony thorax no acute abnormality. Impression: No acute cardiopulmonary abnormality. Reviewed, dictated and finalized at location P. AL SPECIALIST Impression: No acute cardiopulmonary abnormality.
[2025-04-08 15:56] VITALS: BP 138/89; PULSE 85; RESP 20; TEMP 36.6; O2SAT 98
--- OUTSIDE RECORDS SUMMARY | 2025-04-08 15:57 | XMS_ITS | Patient Health Record ---
Author Organization [facility] [place] ([address]) Address [address] [place] [address] Support Name Relationship Address Phone Karla Hackett Guarantor Unknown [phone] Reason For Referral No Information Problems Problem Type SNOMED Code ICD Code Onset Dates Problem Status W/U Status Risk Notes Problem Chronic allergic conjunctivitis (93872703) Other chronic allergic conjunctivitis (H10.45) Active confirmed Problem Allergic rhinitis caused by pollen (disorder) (75845552) Allergic rhinitis due to pollen (J30.1) Active confirmed Problem Allergic rhinitis (25614620) Other allergic rhinitis (J30.89) Active confirmed Problem Chronic rhinitis (88208814) Chronic rhinitis (J31.0) Active confirmed Problem Uncomplicated mild persistent asthma (128569946) Mild persistent asthma, uncomplicated (J45.30) Active confirmed Problem Uncomplicated moderate persistent asthma (643839511) Moderate persistent asthma, uncomplicated (J45.40) Active confirmed Problem Uncomplicated severe persistent asthma (384823601) Severe persistent asthma, uncomplicated (J45.50) Active confirmed Problem Allergic rhinitis caused by animal hair and dander (548404070477998) Allergic rhinitis due to animal (cat) (dog) hair and dander (J30.81) Active confirmed Plan Of Treatment No Information Insurance Providers Payer Name Payer Address Payer Phone Subscriber Number Group Number Insured Name Patient Relationship to Insured Coverage Start Date Coverage End Date [facility] [address] [place] [address] [phone] [id number] Karla Hackett Self - patient is the insured 9
--- OUTSIDE RECORDS SUMMARY | 2025-04-08 15:57 | XMS_ITS | Clinical Summary ---
Author Organization [facility] Address [address] [place] [address] Care Team Providers Care Estate Planning Paralegal Name Role Phone Unavailable Primary Care Provider [...] 3-dose series) 2020 COVID-19 Vaccine (1 - 2024-2 6 season) 2025 Influenza Adult (#1) 2025 Hepatitis A Vaccines Aged Out No long er eligible based on patient's age to complete this topic Meningococcal Vaccine Aged Out No mojgan nalini [...]
--- OUTSIDE RECORDS SUMMARY | 2025-04-08 15:57 | XMS_ITS | Data Portability ---
Author Organization [facility] [place] Address [address] [place] [address] Care Team Providers Care Digital Production Artist Name Role Phone DARRIUS RIZZO Primary Care [...] Lab urinalysis , dipstick [address], [address], [place], [address], 16:57:33 Referral None recorded. Procedures None recorded. [...] as clini skyler franco nted. Not Available [facility] (Lab) [address], [place], [address], 04/13/2023 10:48:58 04/06/20 23 04/06/2023 TRICH OMONA S VAGIN PRISCA (RRNA ) trichomonas vaginalis ribosomal RNA (rrna) Negati ve negati ve Not Available [facility] (Lab) [address], [place], [address], 04/13/2023 10:48:59 04/06/20 23 04/06/2023 CT/GC (OMI) , THINP REP VIAL chlamydia trachomatis, PCR Negati ve negati ve Not Available [facility] (Lab) [address], [place], [address], 04/13/2023 10:48:59 04/06/20 23 04/06/2023 CT/GC (OMI) , THINP REP VIAL neisseria gonorrhoeae, PCR Negati ve negati ve Not Available [facility] (Lab) [address], [place], [address], 04/13/2023 10:48:59 06/08/19 24 06/08/2023 VAGIN ITIS/ VAGIN OSIS, DNA PROBE hardeep sp. detection, direct probe Negati ve negati ve Not Available [facility] (Lab) [address], [place], [address], 06/09/2023 12:53:00 06/08/19 24 06/08/2023 VAGIN ITIS/ VAGIN OSIS, DNA PROBE gardnerella vag. detection, direct probe Negati ve negati ve Not Available [facility] (Lab) [address], [place], [address], 06/09/2023 12:53:00 06/08/19 24 06/08/2023 VAGIN ITIS/ VAGIN OSIS, DNA PROBE trichomonas vag. detection, direct probe Negati ve negati ve Not Available [facility] (Lab) [address], [place], [address], 06/09/2023 12:53:00 06/08/19 24 06/08/2023 urina lysis , dipst ick pH 5 Not Available [place] [address], [place], [address], 06/08/2023 16:57:16 06/08/19 24 06/08/2023 urina lysis , dipst ick Specific [place] [address] [facility] [address], [place], [address], 06/08/2023 16:57:16 Result Notes None recorded. Procedures Surgical History Date Name Laterality Status Provider Name and Address Organization Details Recorded Time 04/06/20 Date of Last Pap Smear completed Carmen Thibodeaux [facility] 06/08/2023 16:42:19 T[address] [facility] 04/06/2023 16:46:04 Imaging Results None recorded. Procedure Notes None recorded. Medical Equipment None Reported. Allergies Allergen ID Allergen Name Allergen Category Reaction Reaction Severity Criticality Documentation Date Start Date Code Code System Note Provider Name and Address Organization Details Recorded Time 34924 Penicilli n Not available swelling moderate Not available 04/06/2023 18337 RxNorm [facility] 16:45:42 Medications Name Sig [...] Updated DateTime 06/08/2023 167.64 cm 43.3 kg/m2 817939.76 g 120/80 mm[Hg] Carmen Thibodeaux [facility] 06/08/2023 16:45:07 Date Recorded Body weight Body mass index (BMI) Body height Systolic And Diastolic Provider Name and Address Organization Details Last Updated DateTime 04/06/2023 240100.76 g 43.3 kg/m2 167.64 cm 111/72 mm[Hg] Laureen Quintin [facility] 04/06/2023 16:48:06 Social History Question Answer Notes LastModified by Organizat ion Details LastModified Time Tobacco Smoking Status Never Smoker [facility] 04/06/2023 16:53:13 How Many Years Have [...] Or The Highest Degree You Have Received? [id number] Information not available 04/06/2023 Are There Any [...] not available 04/06/2023 Are you able to walk independently without assistance or assistive devices? YESWOREST Information not available 04/06/2023 Are you able to care for yourself independently? 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 No Information not available 04/06/2023 What is your exercise level? None Information not available 04/06/2023 Mental Status Question Answer Note LastModified by Organization D etails LastModified Time Do you feel stressed (tense, restless, nervous, or anxious, or unable to sleep at night)? [id number] Information not available 04/06/2023 Family History Relationship [...] Diagnosis SNOMED-CT Code Diagnosis ICD10 Code Diagnosis IMO Codes Diagnosis Note 154162 Lesvia Kristinejorge luis JULIO CÉSAR [place] [address] [address] 04/06/2023 16:29:43 04/07/2023 09:49:52 Gynecologic examination 41335163 Z01.419 Z11.3 Z11.8 WWEBC - condomsdis cussed [...] paper copy of today's plan if desired. [facility] [id number] Z30.9 [id number] [facility] [address] [address] 06/08/2023 16:36:59 06/09/2023 15:55:40 Urinary symptoms 489181764 R39.9 Vaginitis 90787731 N76.0 Today we agreed to await return [...] ID Guarantor Name 02/11/2024 3 *SELF PAY* Ta lexjosé miguel Lew 08/31/2023 1 [place] [id number] Roberto Robert [id number] 4 Karla Hackett 08/31/2023 2 [facility] - DOS ON OR AFTER 20 (MEDICAID REPLACEMENT - HMO) Karla Hackett [id number] Karla Hackett 08/19/2023 3 [place] [employer] Karla Hackett [id number] Karla Hackett Notes Date Note Type Note Provider Name and Address Organization Details Recorded Time 3 text/html Annual GYNReported by PatientGenitourinary symptomsFor menstrual cycle, patient reportsnormal menses. For urinary symptoms, patient reportsno hematuriaandno incontinence. For vulva, patient reportsno genital lesion. For vagina, patient reportsnormal vaginal discharge.Breast symptomsFor breast, patient reportsno breast pain,no breast lump, andno nipple discharge.ContraceptionFo r current contraception, patient reportscondoms.Endocrine symptomsFor sexual complaints, patient reportsno sexual complaints,no pain during intercourse, andnormal libido. For menopausal symptoms, patient reportsno menopausal symptomsandnormal vaginal lubrication.Psychological symptomsFor psychological symptoms, patient reportsno depression,no anxiety, andno pmdd.Preventative measuresFor preventive measures, patient reportsencourage self breast examination,encourage regular exercise,encourage no tobacco use, andencourage regular mammograms starting age 40.no pap hxprotein C deficiency GUSTAV[facility] [address], [place], [address], [place] [facility] 04/07/2023 09:37:57 4 text/html ROS as noted in the HPI Karla is a 22yo reproductive age female who is here today for vaginal odor. She expresses that this will be a random issue.No other sx's other than some dysuria. Neg pain of abd/pelvis/flankNeg urinary sx's except dysuriaNeg GI sx'sNeg N/V/F/C/DNeg Vag d/c,, irritation, itching Stacia Kee, GUSTAVO- [address], [place], [address], [facility] 06/09/2023 14:46:46 OBGyn Episode No OBEpisode recorded.
[2025-04-08 16:03] VITALS: O2SAT 97
--- NOTE | 2025-04-08 16:07 | PC.NURSE ---
covid culture taken to lab
--- NOTE | 2025-04-08 16:16 | ED_ITS ---
HPI - URI/Sore Throat General Chief Complaint: Upper Respiratory Infection Stated Complaint: congestion, cough Time Seen by Provider: 04/08/25 15:57 Source: patient Mode of arrival: ambulatory Limitations: no limitations History of Present Illness HPI Narrative: Patient is a 24-year-old female with cough, congestion of the sinuses and headache for the past few days. She does get migraines. No fever or chills. She had pneumonia in the past and has a similar sensation at this time. Minimal shortness of breath. Chest pain. MD elicited complaint: cough, nasal congestion and sinus pain Pertinent past history: pneumonia Onset (ago): day(s) (Three) Consistency: constant Severity: moderate Pain scale (0-10): 5 Description of mucous: clear Able to tolerate fluids by mouth: Yes Exacerbating factors: speaking and changing head position Relieving factors: rest Context: other (Patient has headache that will not resolve as well as the cough congestion of the sinuses at this time) Associated symptoms: myalgias, headache, nasal congestion, cough and shortness of breath Treatments prior to arrival: cold medicine Related Data Home Medications ?Medication ?Instructions ?Recorded ?Confirmed ?Last Taken ?Type famotidine 40 mg tablet 40 mg PO DAILY 10/14/2311/1410/05/24 History levetiracetam 500 mg 500 mg PO DAILY 10/14/2310/05/24 History tablet,extended release 24 hr (Keppra XR) propranolol 120 mg capsule,24 120 mg PO DAILY 10/14/23 12/01/24 10/05/24 23:30 History hr,extended release montelukast 10 mg tablet 10 mg PO DAILY 12/23/2311/1410/05/24 History multivitamin 1 tablet PO DAILY 12/29/23 0 12/01/24 09/22/24 History escitalopram oxalate 5 mg tablet 5 mg PO HS 10/06/24 0 12/01/24 10/05/24 History rimegepant 75 mg disintegrating 75 mg PO DAILY PRN lisa stephanie 04/08/25 Unknown History tablet (Nurtec ODT) headache Allergies Allergy/AdvReac Type Severity Reaction Status Date / Time Penicillins Allergy Severe facial Verified 04/08/25 16:04 swelling Review of Systems Review of Systems: All systems reviewed & are unremarkable except as noted in HPI and below Constitutional: Constitutional: Reports no additional constitutional complaints Eyes: Eyes: Reports no additional eye complaints ENT: Reports system reviewed and no additional complaints, except as documented Cardiovascular: Cardiovascular: Reports no additional cardiovascular complaints Respiratory: Respiratory: Reports no additional respiratory complaints Gastrointestinal: Gastrointestinal: Reports no additional gastrointestinal complaints Genitourinary: Genitourinary: Reports no additional female genitourinary complaints Musculoskeletal: Musculoskeletal: Reports no additional musculoskeletal complaints Integumentary/Breasts: Skin/Breast: Reports system reviewed and no additional complaints, except as docu Neurologic: Reports system reviewed and no additional complaints, except as documented Psychiatric: Psychiatric: Reports no additional psychiatric complaints Endocrine: Endocrine: Reports no additional endocrine complaints Hematologic/Lymphatic: Hematologic/Lymphatic: Reports no additional hematologic/lymphatic complaints Allergic/Immunologic: Allergic/Immunologic: Reports no additional allergic/immunologic complaints PMFSH Past Medical History Medical History Morbid obesity History of sinus tachycardia Protein C deficiency Surgical History Surgical History H/O ovarian cystectomy History of tonsillectomy Family History Family History Father Cerebrovascular accident Tachycardia Social History Social History Smoking status: Never smoker Alcohol intake: current Alcohol use details: 6 PER YEAR Substance use: never Substance use type: does not use Lack of Transportation: No Lack of Food: Never True Current Housing: I Have Housing Concerned About Future Housing: No Difficulty Paying Gas/Electric Bills: No Difficulty Paying for Meds: No Currently Unemployed: No Education: High School Diploma/GED Difficulty w/ Childcare or Family Care: No Living arrangements: with family Occupation/Education: occupation Additional occupation/education comments: [employer] office [employer] Gender identity (if verbalized by the patient): Female Sexual Orientation (if Verbalized by the Patient): Straight or Heterosexual Spiritual care concerns: No Exam Const: General: healthy appearing Nutritional Appearance: well nourished Orientation/consciousness: patient oriented x3 Limitations: no limitations Other: Acute distress of headache and sinus pressure HENMT: Head: normal to inspection Ears: external ears normal Face/Nose/Sinus: Normal external nose present Eyes: Conjunctivae: conjunctivae normal Pupils: Equal, round and reactive pupils present EOM: EOMs intact bilaterally Neck: Neck: normal visual inspection, lymphadenopathy noted and meningismus present Chest: Chest palpation & inspection: normal inspection of the chest Resp: Effort & Inspection: normal respiratory effort, retractions and tachypneic Auscultation: clear to auscultation bilaterally, no crackles, no rales, no rhonchi, no wheezes, breath sounds present and lung sounds not diminished Cardio: Rate: regular rate Rhythm: regular rhythm Heart sounds: no murmurs GI: Inspection: non-distended GI Palp: Yes Soft to palpation and No Tenderness to palpation present (GI) Auscultation: normal bowel sounds : General: Yes bladder normal to palpation Back/Spine/Pelvis: Back: no CVA tenderness Skin: General skin exam: normal color and jaundice Rashes: no rashes Wounds: no wounds Neuro: General: patient oriented x3, moves all extremities, no meningeal signs, no focal motor deficits and CN's II-XI intact bilaterally Cranial nerves: Yes Nystagmus not present Speech: normal speech Gait exam (Neuro): Normal gait present Extrem: General: normal to inspection, no clubbing, cyanosis or edema and no pedal edema Psych: Mental Status: mental status grossly normal Affect: normal affect Attitude: cooperative Course Vital Signs Vital signs: Vital Signs Temperature 36.6 C 04/08/25 15:56 Pulse Rate 85 04/08/25 15:56 Respiratory Rate 20 04/08/25 15:56 Blood Pressure 138/89 04/08/25 15:56 Pulse Oximetry 98 04/08/25 15:56 Oxygen Delivery Room Air 04/08/25 15:56 Temperature 36.7 C 04/08/25 17:02 Pulse Rate 80 04/08/25 17:02 Respiratory Rate 16 04/08/25 17:02 Blood Pressure 124/79 04/08/25 17:02 Pulse Oximetry 99 04/08/25 17:02 Oxygen Delivery Room Air 04/08/25 17:02 MDM - URI/Sore Throat MDM Narrative Medical decision making narrative: Patient is a 24-year-old female with cough and congestion and headache for the past few days. COVID panel. Chest x-ray. Lab Data Attestation: I reviewed the patient's lab results. Labs: Lab Results 04/08/25 Range/Units 16:04 Influenza A (RT-PCR) Negative (Negative) Influenza B (RT-PCR) Negative (Negative) RSV (RT-PCR) Negative (Negative) SARS-CoV-2 RNA (RT-PCR) Negative (Negative) Imaging Data Radiologist's impression: Chest x-rays negative for acute process Discharge Plan Discharge Clinical Impression: Viral syndrome Patient Disposition: Home Condition: Stable Instructions: Antibiotic Form, Viral Syndrome (ED) Additional Instructions: Please follow your illness for the next day or 2 and if continued symptoms there will be an antibiotic waiting at the pharmacy for you to start called azithromycin. Patient Language: Malay Prescriptions: New azithromycin 250 mg tablet See Rx Instructions .ROUTE .COMPLEX Qty: 6 0RF Rx Instructions: For 250 mg dose pack: take 500 mg today (day 1), then 250 mg for 4 days (days 2-5) No Action Nurtec ODT 75 mg tablet,disintegrating 75 mg PO DAILY PRN (Reason: migraine headache) levetiracetam [Keppra XR] 500 mg tablet extended release 24 hr 500 mg PO DAILY Patient Comments: Says takes at HS famotidine 40 mg tablet 40 mg PO DAILY Patient Comments: Says takes at HS propranolol 120 mg capsule,extended release 24hr 120 mg PO DAILY Patient Comments: Says takes at HS montelukast 10 mg tablet 10 mg PO DAILY Patient Comments: Says takes at HS escitalopram oxalate 5 mg tablet 5 mg PO HS multivitamin Tablet 1 tablet PO DAILY Patient Comments: Says takes at HS Follow-up/Referrals: Dominik Wilde MD [Primary Care Provider, Internal Medicine] Time of Disposition: 17:06
--- OUTSIDE RECORDS SUMMARY | 2025-04-08 16:33 | XMS_ITS | Clinical Summary ---
Author Organization [facility] Address [address] [place] [address] Care Team Providers Care Poison Information Specialist Name Role Phone Unavailable Primary Care [...]
[2025-04-08 16:46] LABS: Influenza A QL RT-PCR Negative (Negative); Influenza B QL RT-PCR Negative (Negative); RSV RNA, RT-PCR Negative (Negative); SARS-CoV-2 RNA PCR Negative (Negative)
[2025-04-08 17:02] VITALS: BP 124/79; PULSE 80; RESP 16; TEMP 36.7; O2SAT 99
== END 2025-04-08 17:17 | disposition home or self-care (01) ==
PROVIDERS: Emergency Provider Emergency Medicine; PCP Internal Medicine
DX: B34.9 Viral infection, unspecified (principal); Z20.822 Contact with and (suspected) exposure to COVID-19
CPT/HCPCS: 71046; 87637; 99283

== ENCOUNTER 2025-05-02 07:31 | Outpatient (CLI) | payer BC, MEDICAID, SELFPAY ==
--- OUTSIDE RECORDS SUMMARY | 2023-12-14 11:30 | XMS_ITS ---
Author Organization [facility] [place] ([address]) Address [address] [place] [address] Care Team Providers Care Rainbow Trout Farm Manager Name Role Phone Mustapha Hernández Unavailable [phone] REASON FOR VISIT Chronic upper airway symptoms concerning for uncontrolled atopic disease, Chronic lower airways symptoms concerning for possible asthma Problems Problem Type SNOMED Code ICD Code Onset Dates Problem Status W/U Status Risk Notes Problem Allergic rhinitis caused by pollen (disorder) (21185935) Allergic rhinitis due to pollen (J30.1) Active confirmed Problem Allergic rhinitis caused by animal hair and dander (943525385375186) Allergic rhinitis due to animal (cat) (dog) hair and dander (J30.81) Active confirmed Problem Allergic rhinitis (95613487) Other allergic rhinitis (J30.89) Active confirmed Problem Chronic allergic conjunctivitis (99021805) Other chronic allergic conjunctivitis (H10.45) Active confirmed Problem Chronic rhinitis (60178564) Chronic rhinitis (J31.0) Active confirmed Problem Uncomplicated moderate persistent asthma (080306899) Moderate persistent asthma, uncomplicated (J45.40) Active confirmed Problem Uncomplicated mild persistent asthma (694520471) Mild persistent asthma, uncomplicated (J45.30) Active confirmed Problem Uncomplicated severe persistent asthma (701003818) Severe persistent asthma, uncomplicated (J45.50) Active confirmed Encounters Encounter Location Date Provider Diagnosis [facility] [address] [facility] [address] [place] [address] 12/14/2023 Mustapha Edgar Allergic rhinitis du e to pollen J30.1 ; Allergic rhinitis due to animal (cat) (dog) hair and dander J30.81 ; Other allergic rhinitis J30.89 ; Other chronic allergic conjunctivitis H10.45 ; Hypertrophy of nasal turbinates J34.3 ; Chronic rhinitis J31.0 ; Moderate persistent asthma, uncomplicated J45.40 ; Mild persistent asthma, uncomplicated J45.30 and Severe persistent asthma, uncomplicated J45.50 Assessments Encounter Date Diagnosis (ICD Code) Assessment Notes Treatment Notes Treatment Clinical Notes Section Notes 12/14/2023 Allergic rhinitis due to pollen (ICD-10 - J30.1) Given the history and symptoms, skin testing was performed to common aeroallergens to determine atopic status. clearly suffers from atopic disease based upon our skin testing and clinical history. Accordingly, we have introduced a new, aggressive medication regimen, discussed nasal washes and allergy-specific avoidance measures. We also discussed adjunctive therapies including subcutaneous, specific allergen immunotherapy as relates to the treatment and prevention of atopic disease. They are currently considering the risks, benefits and alternatives to this care. Risks: bleeding, infection, allergic reaction, anaphylaxis; Benefits: reduced need for medications, improved symptoms, disease modification. Alternatives: watch/wait, change medication regimen, improve allergy avoidance measures. Follow-up in 1 month for interval evaluation and management 12/14/2023 Allergic rhinitis due to animal (cat) (dog) hair and dander (ICD-10 - J30.81) Follow allergen avoidance, meds and consider SCIT as an adjunctive treatment to current regimen 12/14/2023 Other allergic rhinitis (ICD-10 - J30.89) Follow allergen avoidance, meds and consider SCIT as an adjunctive treatment to current regimen 12/14/2023 Other chronic allergic conjunctivitis (ICD-10 - H10.45) Given ocular signs and symptoms I encouraged allergy avoidance measures and meds as above. If symptoms persist, consider adding additional medications including intraocular antihistamine/mas t cell stabilizer, PRN and consider SCIT as an adjunctive measure 12/14/2023 Hypertrophy of nasal turbinates (ICD-10 - J34.3) 12/14/2023 Chronic rhinitis (ICD-10 - J31.0) 12/14/2023 Moderate persistent asthma, uncomplicated (ICD-10 - J45.40) 12/14/2023 Mild persistent asthma, uncomplicated (ICD-10 - J45.30) 12/14/2023 Severe persistent asthma, uncomplicated (ICD-10 - J45.50) Plan Of Treatment Treatment Notes Assessment Notes Allergic rhinitis due to pollen Given th e history and symptoms, skin testing was performed to common aeroallergens to determine atopic status. clearly suffers from atopic disease based upon our skin testing and clinical history. Accordingly, we have introduced a new, aggressive medication regimen, discussed nasal washes and allergy-specific avoidance measures. We also discussed adjunctive therapies including subcutaneous, specific allergen immunotherapy as relates to the treatment and prevention of atopic disease. They are currently considering the risks, benefits and alternatives to this care. Risks: bleeding, infection, allergic reaction, anaphylaxis; Benefits: reduced need for medications, improved symptoms, disease modification. Alternatives: watch/wait, change medication regimen, improve allergy avoidance measures. Follow-up in 1 month for interval evaluation and management Allergic rhinitis due to ani mal (cat) (dog) hair and dander Follow allergen avoidance, meds and consider SCIT as an adjunctive treatment to current regimen Other allergic rhinitis Follow allergen avoidance, meds and consider SCIT as an adjunctive treatment to current regimen Other chronic allergic conjunctivitis Gi grabiel ocular signs and symptoms I encouraged allergy avoidance measures and meds as above. If symptoms persist, consider adding additional medications including intraocular antihistamine/mast cell stabilizer, PRN and consider SCIT as an adjunctive measure Next Appt Details Follow Up: 4 Weeks, Reason: Evaluation and Management Progress Notes * MUNSONShiraB: [birth year] (24 yo F)Acc No.[id number]:12/14/2023 Progress Notes Patient: Karla RAMIREZ Provider: Ivette Hernández PA-C :2000 A ge:23 Y S ex:Female Date:12/14/2023 Address:[address] [place], [place] [id number] Subjective: * 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 Chronic upper airway symptoms concerning for uncontrolled atopic disease. 2. Chronic lower airways symptoms concerning for possible asthma. * HPI: * Introduction: HPI: x . * ROS: A LLERGY: Positive p er the HPI and history, otherwise unremarkable.? S PECIAL SENSES: Positve for n one. C ONSTITUTIONAL: Positive for n one. E NT: Positive p er the HPI and history, otherwise unremarkable.? R ESPIRATORY: Positive p er the HPI and history, otherwise unremakable.? O PHTHALMOLOGY: Positive for p er the HPI and history, otherwise unremarkable. E NDOCRINOLOGY: Positive for n one. C ARDIOLOGY: Positive for n one. G ASTROENTEROLOGY: Positive for n one. U ROLOGY: Positive for n one. D ERMATOLOGY: Positive for p er the HPI and history, otherwise unremakable. N EUROLOGY: Positive for n one. H EMATOLOGY/LYMPH: Positive for n one. M USCULOSKELETAL: Positive for n one. P SYCHOLOGY: Positive for n one. A ll other review of systems per the HPI and history, otherwise unremarkable. * Medical History: Objective: * Vitals: * Examination: G eneral examination: General appearance: p leasant, well-developed, well-nourished. HEENT: p upils equal, round, and reactive to light and accommodation, conjunctiva are injected bilaterally, no tenderness to palpation of the sinuses, TM's without evidence of acute infection, turbinates 2+ swollen and pale inferiorly bilaterally, clear rhinorrhea is present, no polyps noted, no septal perforation, posterior oropharynx is erythematous and cobblestoning is present, erythema on pharyngeal wall, no exudates, no tongue swelling, and uvula is midline. Oral cavity: n ormal, no lesions. Neck, thyroid : s upple, non-tender, no anterior cervical lymphadenopathy. Breasts : n ot performed. Heart: R RR, S1-S2, no murmurs, no rubs, no gallops. Lungs: c lear to auscultation and percussion in all lung gaines, no wheezes or crackles. Abdomen: s oft, NT/ND, normal active bowel sounds. Neurologic exam: u nremarkable. Skin: n ormal, no rash, dermatographism, urticaria, angioedema. Peripheral pulses: n ormal (2+) bilaterally. Back: n ormal. Extremities: n ormal ROM, no clubbing, no cyanosis, no edema. Genitalia: n ot performed. Assessment: * Assessment: 1. A llergic rhinitis due to pollen - J30.1 (Primary) 2 . A llergic rhinitis due to animal (cat) (dog) hair and dander - J30.81 3 . O ther allergic rhinitis - J30.89 4 . O ther chronic allergic conjunctivitis - H10.45 5 . H ypertrophy of nasal turbinates - J34.3 6 . C hronic rhinitis - J31.0? 7. M oderate persistent asthma, uncomplicated - J45.40 8 . M ild persistent asthma, uncomplicated - J45.30 9 . S evere persistent asthma, uncomplicated - J45.50 Plan: * Treatment: 2. A llergic rhinitis due to animal (cat) (dog) hair and dander Notes: Follow allergen avoidance, meds and consider SCIT as an adjunctive treatment to current regimen 3. O ther allergic rhinitis Notes: Follow allergen avoidance, meds and consider SCIT as an adjunctive treatment to current regimen 4. O ther chronic allergic conjunctivitis Notes: Given ocular signs and symptoms I encouraged allergy avoidance measures and meds as above. If symptoms persist, consider adding additional medications including intraocular antihistamine/mast cell stabilizer, PRN and consider SCIT as an adjunctive measure * Procedure Codes: 9 5004 PRICK TESTS, Units: 72.00 , 42695 INTRADERMAL TESTS, 12853 MEASURE BLOOD OXYGEN LEVEL, 93743 SELF-MGMT EDUC & TRAIN, 1 PT, S9441 ASTHMA ED NON-MD PROV PER SESSION, 30783 PT-FOCUSED HLTH RISK ASSMT, G8427 DOC MEDS VERIFIED W/PT OR RE * Preventive Medicine: Counseling: M edication instruction: W atch for side effects of prescribed medications, Nasal steroid/antihistamine instruction: avoid septum. E ducation: G ENERAL EDUCATION: Our staff spent an additional 30 minutes in direct contact with the patient educating them on their current diagnoses and proper treatment and prevention of symptoms and the proper use of medications. E ducation 2: A RC EDUCATION: Our staff discussed the appropriate allergen avoidance measures and medication utilization including upper airway hygiene with daily nasal washes given the patient's clinical status and diagnoses. SCIT EDUCATION: Discussed allergy immunotherapy including the relative risks, benefits and alternatives to this treatment as an adjunctive measure to current therapy, Allergy Immunotherapy: Risks: bleeding, infection, allergic reaction, anaphylaxis = severe allergic reaction that can cause ; Benefits: reduced need for medications, improved symptoms, disease modification. Alternatives: watch/wait, change medication regimen, improve allergy avoidance measures, Our staff discussed the warning signs of anaphylaxis and the indications to use self-injectable epinephrine and seek urgent or emergent care. P atient education material sent to portal? Y es * Follow Up: 4 Weeks (Reason: Evaluation and Management) * Billing Information: * Visit Code: * Procedure Codes: 92609 PRICK TESTS. Units: 72.00. 62000 INTRADERMAL TESTS. 00432 MEASURE BLOOD OXYGEN LEVEL. 29349 SELF-MGMT EDUC & TRAIN, 1 PT. S9441 ASTHMA ED NON-MD PROV PER SESSION. 50854 PT-FOCUSED HLTH RISK ASSMT. G8427 DOC MEDS VERIFIED W/PT OR RE. * Electronic signature of Huber Hernández PA-C on 05/02/2025 at 07:36 AM LIFE ENRICHMENT MANAGER Sign off status: Pending * Provider: Ivette Hernández PA-C Date: 0 12/14/2023 Generated for Malou anderson/Navid/Jaja on: 07/03/2024 07:36 AM LIFE ENRICHMENT MANAGER History and Physical Notes * HPI (History of Present Illness) Category Sub-Category Detail Notes Category Not es *Introduction HPI: x Examination Category Sub-Category Detail Notes Category Not es General examination HEENT: pupils equal , round, and reactive to light and accommodation, conjunctiva are injected bilaterally, no tenderness to palpation of the sinuses, TM's without evidence of acute infection, turbinates 2+ swollen and pale inferiorly bilaterally, clear rhinorrhea is present, no polyps noted, no septal perforation, posterior oropharynx is erythematous and cobblestoning is present, erythema on pharyngeal wall, no exudates, no tongue swelling, and uvula is midline Neck, thyroid : supple, non-tender, no anterior cervical lymphadenopathy Heart: RRR, S1-S2, no murmu rs, no rubs, no gallops Lungs: clear to auscultatio n and percussion in all lung gaines, no wheezes or crackles Abdomen: soft, NT/ND, normal active bowel sounds Extremities: normal ROM, no clubb ing, no cyanosis, no edema General appearance: pleasant, well-devel oped, well-nourished Skin: normal, no rash, christiano matographism, urticaria, angioedema Neurologic exam: unremarkable Oral cavity: normal, no lesions Breasts : not performed Peripheral pulses: normal (2+) bilatera lly Back: normal Genitalia: not performed
--- OUTSIDE RECORDS SUMMARY | 2023-12-28 11:30 | XMS_ITS ---
Author Organization [facility] [place] ([address]) Address [address] [place] [address] Care Team Providers Care Building Carpenter Helper Name Role Phone Britt Rivera [phone] REASON FOR VISIT Chronic upper airway symptoms concerning for uncontrolled atopic disease, Chronic lower airways symptoms concerning for possible asthma Encounters Encounter Location Date Provider Diagnosis [facility] [address] [facility] [email or web address] [address] [place] [address] 12/28/2023 Britt Rivera Allergic rhinitis du e to pollen J30.1 [...] Treatment Notes Treatment Clinical Notes Section Notes 12/28/2023 Allergic rhinitis due to pollen (ICD-10 - [...] 1 month for interval evaluation and management 12/28/2023 Allergic rhinitis due to animal (cat) (dog) hair and dander (ICD-10 - J30.81) Follow allergen avoidance, meds and consider SCIT as an adjunctive treatment to current regimen 12/28/2023 Other allergic rhinitis (ICD-10 - J30.89) Follow allergen avoidance, meds and consider SCIT as an adjunctive treatment to current regimen 12/28/2023 Other chronic allergic conjunctivitis (ICD-10 - H10.45) Given ocular signs and symptoms I encouraged allergy avoidance measures and meds as above. If symptoms persist, consider adding additional medications including intraocular antihistamine/mas t cell stabilizer, PRN and consider SCIT as an adjunctive measure 12/28/2023 Hypertrophy of nasal turbinates (ICD-10 - J34.3) 12/28/2023 Chronic rhinitis (ICD-10 - J31.0) 12/28/2023 Moderate persistent asthma, uncomplicated (ICD-10 - J45.40) 12/28/2023 Mild persistent asthma, uncomplicated (ICD-10 - J45.30) 12/28/2023 Severe persistent asthma, uncomplicated (ICD-10 - J45.50) [...] Reason: Evaluation and Management Progress Notes * Marifer MUNSONaDOB: [birth year] (24 yo F)Acc No.[id number]:12/28/2023 Progress Notes Patient: Karla RAMIREZ Provider: MADELAINE Palacios :2000 A ge:23 Y S ex:Female Date:12/28/2023 Address:[address] [place], [place] [id number] Subjective: * 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 [...] 9 5004 PRICK TESTS, Units: 72.00 , 41978 INTRADERMAL TESTS, 77127 MEASURE BLOOD OXYGEN LEVEL, 23962 SELF-MGMT EDUC & TRAIN, 1 PT, S9441 ASTHMA ED NON-MD PROV PER SESSION, 74795 PT-FOCUSED HLTH RISK ASSMT, G8427 DOC MEDS [...] Information: * Visit Code: * Procedure Codes: 56435 PRICK TESTS. Units: 72.00. 19821 INTRADERMAL TESTS. 58895 MEASURE BLOOD OXYGEN LEVEL. 68413 SELF-MGMT EDUC & TRAIN, 1 PT. S9441 ASTHMA ED NON-MD PROV PER SESSION. 99693 PT-FOCUSED HLTH RISK ASSMT. G8427 DOC MEDS VERIFIED W/PT OR RE. * Electronic signature of Britt Rivera DNP, FNP-C on 05/02/2025 at 07:36 AM CARDIOVASCULAR SPECIALIST Sign off status: Pending * Provider: MADELAINE Palacios Date: 0 12/28/2023 Generated for Malou anderson/Navid/Jaja on: 1 07/03/2024 07:36 AM CARDIOVASCULAR SPECIALIST History and Physical Notes * HPI (History [...]
--- OUTSIDE RECORDS SUMMARY | 2024-02-15 11:30 | XMS_ITS ---
Author Organization [facility] [place] ([address]) Address [address] [place] [address] Care Team Providers Care Edge Banding Machine Offbearer Name Role Phone Britt Rivera [phone] REASON FOR VISIT LOOM OVERHAULER Allergies Encounters Encounter Location Date Provider Diagnosis [facility] [address] [place] [address] 02/15/2024 Britt Rivera Plan Of Treatment No Information Progress Notes * Marifer MUNSONaDOB: [birth year] (24 yo F)Acc No.[id number]:02/15/2024 Progress Notes Patient: Lisa VERNON Karla Provider: MADELAINE Palacios :2000 A ge:23 Y S ex:Female Date:02/15/2024 Address:[address] [place], [place] [id number] Subjective: * 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 * Medical History: Objective: * Vitals: Assessment: Plan: * Treatment: * Billing Information: * Visit Code: * Procedure Codes: * Electronic signature of Britt Rivera DNP, FNP-C on 05/02/2025 at 07:36 AM PLATE PRINTER Sign off status: Pending * Provider: MADELAINE Palacios Date: Generated for Printi ng/Faxing/eTransmitting on: 07/03/2024 07:36 AM PLATE PRINTER
--- NOTE | 2025-05-02 | CONSULT_PTH ---
PATIENT: Karla Hackett LOC: [facility]#:[id number] AGE/SX: 24/F ROOM: RE05/02/[address]: Dominik Wilde MD : 2000 BED: DIS: 05/02/2025 SPEC #: [id number] RECD: 05/02/25 16:45 STATUS: LETA RICH #: [id number] BONI: 05/02/25 00:[address]: Dominik Wilde DEPT: [facility] Consult RECD BY: Rosemarie Brunner MLT, [facility] Tissues: A - Peripheral Smear Procedures: Hematology Consult
--- OUTSIDE RECORDS SUMMARY | 2025-05-02 07:37 | XMS_ITS | Patient Health Record ---
Author Organization [facility] [place] ([address]) Address [address] [place] [address] Support Name Relationship Address Phone Karla Hackett Guarantor Unknown [phone] Reason For Referral No Information Problems Problem Type SNOMED Code ICD Code Onset Dates Problem Status W/U Status Risk Notes Problem Chronic allergic conjunctivitis (24932823) Other chronic allergic conjunctivitis (H10.45) Active confirmed Problem Allergic rhinitis caused by pollen (disorder) (97420843) Allergic rhinitis due to pollen (J30.1) Active confirmed Problem Allergic rhinitis (69625270) Other allergic rhinitis (J30.89) Active confirmed Problem Chronic rhinitis (06744302) Chronic rhinitis (J31.0) Active confirmed Problem Uncomplicated mild persistent asthma (800366062) Mild persistent asthma, uncomplicated (J45.30) Active confirmed Problem Uncomplicated moderate persistent asthma (469357410) Moderate persistent asthma, uncomplicated (J45.40) Active confirmed Problem Uncomplicated severe persistent asthma (734366347) Severe persistent asthma, uncomplicated (J45.50) Active confirmed Problem Allergic rhinitis caused by animal hair and dander (680002045260505) Allergic rhinitis due to animal (cat) (dog) hair and dander (J30.81) Active confirmed Plan Of Treatment No Information Insurance Providers Payer Name Payer Address Payer Phone Subscriber Number Group Number Insured Name Patient Relationship to Insured Coverage Start Date Coverage End Date [facility] [id number] [place] [address] [phone] [id number] Karla Hackett Self - patient is the insured 9
--- OUTSIDE RECORDS SUMMARY | 2025-05-02 07:37 | XMS_ITS | Clinical Summary ---
Author Organization [facility] Address [address] [place] [address] Care Team Providers Care Molder Name Role Phone Unavailable Primary Care Provider [...]
[2025-05-02 07:49] LABS: Hematocrit 37.8 % (35.0-49.0); Hemoglobin 11.8 g/dL (12.0-15.0); Mean Corpuscular HGB Conc 31.2 g/dL (32-36); Mean Corpuscular Hemoglobin 26.7 pg (27.0-31.0); Mean Corpuscular Volume 85.5 fL (78.0-102.0); Platelet Count Result 350 K/mm3 (150-420); Red Blood Count 4.42 M/mm3 (4.20-5.40); White Blood Count 7.8 K/mm3 (4.8-10.8)
[2025-05-02 07:50] LABS: Add Urine Microscopic? YES; Appearance Urine Clear (Clear); Glucose Urine UA Negative (Negative); Leukocyte Esterase Ur Negative (Negative); Nitrate Urine Negative (Negative); Specific Grav Ur >= 1.030 (1.010-1.020)
[2025-05-02 08:11] LABS: Alanine Aminotransferase 14 U/L (6-35); Albumin Level 4.2 g/dL (3.5-5.1); Alkaline Phosphatase 93 U/L (38-126); Anion Gap 8 mmol/L (4-12); Aspartate Amino Transferase 20 U/L (14-36); Bilirubin,Total 0.6 mg/dL (0.2-1.3); Blood Urea Nitrogen 11 mg/dL (7-17); CRP 0.9 mg/dL (<1.0); Calcium 8.7 mg/dL (8.4-10.2); Carbon Dioxide 21 mmol/L (22-30); Chloride 108 mmol/L (98-107); Estimated Glomerular Filt Rate > 60; Glucose 107 mg/dL (65-110); Osmolality Calculated 283 mOsm/kg (285-295); Potassium 4.2 mmol/L (3.4-5.0); Sodium 137 mmol/L (137-145); Total Protein 6.7 g/dL (6.3-8.2)
[2025-05-02 08:25] LABS: Free T4 Free Thyroxine 1.05 ng/dL (0.78-2.19)
[2025-05-02 08:26] LABS: Free T3 3.36 pg/mL (2.18-3.98)
[2025-05-02 08:39] LABS: Thyroid Stimulating Hormone 3.880 uIU/mL (0.465-4.680)
[2025-05-02 16:19] LABS: Immature Granulocyte Percent A 0.3 % (0.0-0.0); Immature Reticulocyte Fraction 14.4 % (2.0-16.52); Lymphocytes Absolute Auto 2.60 K/mm3 (1.10-4.50); Nucleated Red Blood Cells Absolute Auto 0.02 K/mm3 (0.00-0.00); Nucleated Red Blood Cells Perc 0.3 % (0-0.0); Reticulocyte Hemoglobin Conten 29.8 pg (28.0-35.0); Reticulocytes Absolute 0.08 M/mm3 (0.02-0.10)
[2025-05-02 16:26] LABS: Iron 84 ug/dL (37-170)
[2025-05-02 16:35] LABS: Percent Iron Saturation 26 % (20-50)
[2025-05-02 17:02] LABS: Ferritin 15.30 ng/mL (6.24-137)
[2025-05-02 17:19] LABS: Vitamin B12 342.0 pg/mL (239-931)
[2025-05-04 18:08] LABS: ANA by IFA Rfx Titer/Pattern Negative (.)
== END 2025-05-02 07:32 | disposition home or self-care (01) ==
PROVIDERS: PCP Internal Medicine; Visit Provider Internal Medicine
DX: Z00.00 Encounter for general adult medical examination without abnormal findings (principal); R53.83 Other fatigue; G40.909 Epilepsy, unspecified, not intractable, without status epilepticus
CPT/HCPCS: 36415; 80053; 80177; 81001; 82607; 82728; 82746; 83540; 83550; 83921; 84439; 84443; 84481; 85025; 85027; 85046; 86038; 86140